=== PATIENT | female | born 1960 | race Caucasian/White ===

== ENCOUNTER 2017-01-03 18:52 | Emergency (ER) | payer MEDICARE, MEDICAID ==
[2017-01-03 19:53] LABS: Hematocrit 42 % (35-47); Hemoglobin 13.7 g/dl (12.0-16.0); Mean Corpuscular HGB Conc 33 g/dl (31-36); Mean Corpuscular Hemoglobin 29 pg (27-31); Mean Corpuscular Volume 87 fL (80-97); Mean Platelet Volume 8 um3 (7.4-10.4); Red Blood Count 4.78 10^6/ul (4.0-5.4); Red Cell Distribution Width 14 % (10.5-15); White Blood Count 11.3 10^3/ul (3.5-10.8)
[2017-01-03 20:08] LABS: BUN/Creatinine Ratio 23.8 (8-20); Calcium 9.8 mg/dL (8.6-10.3); EGFR African American 124.8 (>60); EGFR Non-African American 97.1 (>60); Potassium 3.6 mmol/L (3.5-5.0)
[2017-01-03] MEDS ORDERED: Acetaminophen TAB* 325 MG PO ONE (20:17)
--- NOTE | 2017-01-03 20:18 | RAD ---
HISTORY: Trauma, head injury COMPARISONS: October 04, 2015 TECHNIQUE: Multiple contiguous axial CT scans were obtained of the head without intravenous contrast. FINDINGS: HEMORRHAGE/INFARCT: There is no hemorrhage or acute infarct. MASSES/SHIFT: There is no mass or shift. EXTRA-AXIAL SPACES: There are no extra-axial fluid collections. SULCI AND VENTRICLES: The sulci and ventricles are normal in size and position for the patient's stated age. CEREBRUM: There are no focal parenchymal abnormalities. BRAINSTEM: There are no focal parenchymal abnormalities. CEREBELLUM: There are no focal parenchymal abnormalities. VESSELS: The vessels are grossly normal. PARANASAL SINUSES: The paranasal sinuses are clear. ORBITS: The orbits are unremarkable. 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 There is soft tissue swelling of the left frontal skull. There is prominence of the adenoids, greater than expected for age. OTHER: None IMPRESSION: 1. NO ACUTE INTRACRANIAL PATHOLOGY. 2. SOFT TISSUE SWELLING OF THE LEFT SCALP. 3. AGAIN NOTED IS PROMINENCE OF THE ADENOIDS WHICH CAN BE ASSOCIATED WITH CERTAIN TYPES OF IMMUNE DEFICIENT STATES
--- NOTE | 2017-01-03 20:20 | RAD ---
HISTORY: Trauma, head injury COMPARISONS: Head CT dated January 03, 2017 TECHNIQUE: Multiple contiguous axial CT scans were obtained of the cervical spine without intravenous contrast, with coronal and sagittal multiplanar reformations. FINDINGS: BRAIN: The visualized brain is unremarkable CENTRAL CANAL: Evaluation of the central canal is limited on CT technique, however there is no obvious canalicular mass or epidural hemorrhage. ALIGNMENT: There is straightening with mild reversal of the normal cervical lordosis. VERTEBRAL BODIES: There is multilevel anterolateral marginal osteophyte formation. There is no displaced fracture. JOINTS: There is osteoarthritis of the atlantoaxial articulation. There is osteoarthritis of the uncovertebral and facet joints. MUSCULATURE: Unremarkable INTERVERTEBRAL DISCS: There is diffuse loss of intervertebral disc height. AXIAL IMAGES: On axial images, there is no osseous neural foraminal narrowing or central canal stenosis. SOFT TISSUES: Again noted is prominence of the adenoids. There is preservation of the prevertebral fat stripe. OTHER: None. IMPRESSION: DEGENERATIVE DISC DISEASE AND OSTEOARTHRITIS OF THE CERVICAL SPINE. NO ACUTE OSSEOUS INJURY TO THE CERVICAL SPINE.
--- NOTE | 2017-01-03 20:49 | RAD ---
HISTORY: Trauma, status post fall COMPARISONS: None VIEWS: 2: Frontal dual-energy and lateral views of the chest. FINDINGS: CARDIOMEDIASTINAL SILHOUETTE: The cardiac silhouette is enlarged. The cardiomediastinal silhouette is otherwise normal. FARIDEH: The farideh are normal. PLEURA: The costophrenic angles are sharp. No pleural abnormalities are noted. LUNG PARENCHYMA: There is mild diffuse reticular pattern. ABDOMEN: The upper abdomen is clear. There is no subphrenic gas. BONES AND SOFT TISSUES: No bone or soft tissue abnormalities are noted. OTHER: None. IMPRESSION: CARDIOMEGALY WITH MILD INTERSTITIAL EDEMA
[2017-01-03] MEDS ORDERED: Lidocaine/Epineph/Tetraca SOL* (LET solution) 4 ML BTL ONE (22:05)
[2017-01-03 23:09] VITALS: BP 123/67
--- NOTE | 2017-01-03 23:31 | ED ---
Alonzo Atwood Adam, scribed for Juarez Medrano MD on 01/03/17 at 1915 . Head Injury - HPI Summary HPI Summary: Pt is a 56 year old female presenting with a head injury s/p fall. She has a developmental delay and her sisters assisted with providing the Hx. At approximately 18:20 tonight, the pt was putting on her shoes when she states that she "passed out" and struck the back of her head on a table. The fall was unwitnessed and the pt is unsure if she fell due to loss of balance or syncope. She currently presents with a laceration on the back of her head and c/o a [place] in that area. PMHx includes HTN, A Fib, and angina. She is a former smoker. - History Of Current Complaint Chief Complaint: EDHeadInjury Stated Complaint: FALL/HEAD LAC Time Seen by Provider: 01/03/17 19:08 Hx Obtained From: Patient, Family/Web Marketing Coordinator Mechanism Of Injury: Fall From A Standing Position Onset/Duration: Started Minutes Ago, Traumatic, Still Present Onset of Pain: Immediate Severity Currently: Moderate Severity Initially: Moderate Pain Intensity: 5 Pain Scale Used: 0-10 Numeric Location of Head Injury: Occipital Aggravating Factor(s): Other: - Nothing Alleviating Factor(s): Other: - Nothing - Allergies/Home Medications Allergies/Adverse Reactions: Allergies Allergy/AdvReac Type Severity Reaction Status Date / Time No Known Allergies Allergy Verified 09/29/14 13:28 PMH/Surg Hx/FS Hx/Imm Hx Endocrine/Hematology History: Denies: Hx Anticoagulant Therapy, Hx Blood Disorders, Hx Blood Transfusions, Hx Bone Marrow Disease, Hx Diabetes, Hx Systemic Lupus Erythematosus, Hx Sickle Cell Disease, Hx Thyroid Disease, Hx Anemia, Hx Unexplained Bleeding, Other Endocrine/Hematological Disorders Cardiovascular History: Reports: Hx Angina, Hx Hypertension - ON DAILY MEDS Denies: Hx Aneurysm, Hx Angioplasty, Hx Auto Implanted Cardiovert Defib, Hx Cardiac Arrest, Hx Cardiomegaly, Hx Congenital Heart Disease, Hx Congestive Heart Failure, Hx Coronary Artery Disease, Hx Deep Vein Thrombosis, Hx Embolism , Hx Hypercholesterolemia, Hx Hypotension, Hx Pacemaker/ICD, Hx Peripheral Vascular Disease, Hx Rheumatic Fever, Hx Syncope, Hx Valvular Heart Disease, Other Cardiovascular Problems/Disorders Respiratory History: Denies: Hx Asthma, Hx Chronic Bronchitis, Hx Chronic Obstructive Pulmonary Disease (COPD), Hx Cystic Fibrosis, Hx Lung Cancer, Hx Pleural Effusion, Hx Pneumonia, Hx Pulmonary Edema, Hx Pulmonary Embolism, Hx Seasonal Allergies, Hx Sleep Apnea, Other Respiratory Problems/Disorders GI History: Denies: Hx Cirrhosis, Hx Crohn's Disease, Hx Diverticulosis, Hx Gall Bladder Disease, Hx Gastroesophageal Reflux Disease, Hx Gastrointestinal Bleed, Hx Hiatal Hernia, Hx Irritable Bowel, Hx Jaundice, Hx Obstructive Bowel, Hx Ileostomy, Hx Pyloric Stenosis, Hx Ulcer, Other GI Disorders History: Denies: Hx Renal Disease Musculoskeletal History: Denies: Hx Arthritis, Hx Back Problems, Hx Bursitis, Hx Congenital Bone Abnormalities, Hx Fibromyalgia, Hx Gout, Hx Orthopedic Injury, Hx Osteoporosis, Hx Scoliosis, Hx Tendonitis, Other Musculoskeletal History Sensory History: Denies: Hx Cataracts, Hx Contacts or Glasses, Hx Eye Injury, Hx Eye Prosthesis, Hx Glaucoma, Hx Legally Blind, Hx Macular Degeneration, Hx Vision Problem, Hx Deafness, Hx Hearing Aid, Hx Hearing Problem, Other Sensory Impairments Opthamlomology History: Denies: Hx Cataracts, Hx Contacts or Glasses, Hx Eye Injury, Hx Eye Prosthesis, Hx Glaucoma, Hx Legally Blind, Hx Macular Degeneration, Hx Vision Problem, Other Sensory Impairments Neurological History: Reports: Hx Developmental Delay Denies: Hx Dementia, Hx Headaches, Hx Migraine, Hx Nerve Disease, Hx Seizures , Hx Spinal Cord Injury, Hx Transient Ischemic Attacks (TIA), Other Neuro Impairments/Disorders Psychiatric History: Reports: Hx [facility] Mental Health Tx Denies: Hx Anxiety, Hx Attention Deficit Hyperactivity Disorder, Hx Eating Disorder, Hx Depression, Hx Panic Disorder, Hx Post Traumatic Stress Disorder, Hx Inpatient Treatment, Hx Schizophrenia, Hx Bipolar Disorder, Hx Suicide Attempt, Hx of Violent Episodes Against Others, Hx Substance Abuse, Other Psychiatric Issues/Disorders - Surgical History Surgery Procedure, Year, and Place: 1970s HYSTERECTOMY [facility]. 12/23/13 RIGHT BREAST [facility] Hx Anesthesia Reactions: No Infectious Disease History: No Infectious Disease History: Denies: Hx Clostridium Difficile, Hx Hepatitis, Hx Human Immunodeficiency Virus (HIV), Hx of Known/Suspected MRSA, Hx Shingles, Hx Tuberculosis, Hx Known/ Suspected VRE, Hx Known/Suspected VRSA, History Other Infectious Disease, Traveled Outside the [place] in Last 30 Days - Family History Known Family History: Positive: Other - Breast CA, anesthesia rxn - Social History Occupation: Disabled Lives: With Family Alcohol Use: None Hx Substance Use: No Substance Use Type: Reports: None Hx Tobacco Use: Yes Smoking Status (MU): Former Smoker Type: Cigarettes Amount Used/How Often: 15 years Have You Smoked in the Last Year: No Review of Systems Negative: Arthralgia, Myalgia Positive: Other - Laceration on back of head Positive: Headache All Other Systems Reviewed And Are Negative: Yes Physical Exam Triage Information Reviewed: Yes Vital Signs On Initial Exam: Initial Vitals Temp Pulse Resp BP Pulse Ox 98.1 F 89 20 139/73 90 01/03/17 19:06 01/03/17 19:06 01/03/17 19:06 01/03/17 19:06 01/03/17 19:06 Vital Signs Reviewed: Yes Appearance: Positive: Well-Appearing, No Pain Distress Skin: Positive: Other - Laceration (See below under "Head/Face") Head/Face: Positive: Other - 1 inch laceration on midline occiput with edema around it. No crepitus. Respiratory/Lung Sounds: Positive: Clear to Auscultation, Breath Sounds Present Cardiovascular: Positive: RRR Abdomen Description: Positive: Soft - With ventral hernia, reducible Musculoskeletal: Positive: Strength/ROM Intact Neurological: Positive: Sensory/Motor Intact Psychiatric: Positive: Affect/Mood Appropriate Procedures - Laceration/Wound Repair 1 Location: head Description: Linear Anesthesia: Lido Length, Depth and Shape: 1.5 cm Betadine Prep?: No Laceration/Wound Explored: clean Closure: [place] #__ - 3 Debridement: minimal Layer Closure?: No Sterile Dressing Applied?: No Diagnostics - Vital Signs Vital Signs Temp Pulse Resp BP Pulse Ox 01/03/17 19:06 98.1 F 89 20 139/73 90 - Laboratory Result Diagrams: 01/03/17 19:35 01/03/17 19:35 Lab Statement: Any lab studies that have been ordered have been reviewed, and results considered in the medical decision making process. - Radiology CXR Radiology Interpretation Completed By: Radiologist - IMPRESSION: CARDIOMEGALY WITH MILD INTERSTITIAL EDEMA. - CT CERVICAL SPINE CT CT Interpretation Completed By: Radiologist - IMPRESSION: DEGENERATIVE DISC DISEASE AND OSTEOARTHRITIS OF THE CERVICAL SPINE. NO ACUTE OSSEOUS INJURY TO THE CERVICAL SPINE. BRAIN CT Interpretation Completed By: Radiologist - IMPRESSION: 1. NO ACUTE INTRACRANIAL PATHOLOGY. 2. SOFT TISSUE SWELLING OF THE LEFT SCALP. 3. AGAIN NOTED IS PROMINENCE OF THE ADENOIDS WHICH CAN BE ASSOCIATED WITH CERTAIN TYPES OF IMMUNE DEFICIENT STATES - EKG 20:47 Cardiac Rate: NL - 74 BPM EKG Rhythm: Sinus Rhythm EKG Comparison: No Significant Change - T wave inversions in I, II, aVL, aVF, and V1-V6 - no change from prior EKG's on 10/05/2015 and 08/21/2013. Head Injury Course/Dx - Diagnoses Differential Diagnosis/HQI/PQRI: Cerebral Contusion, Concussion Without LOC, Contusion, Hematoma, Intracranial Bleed, Skull Fracture, Other - Unclear initial cause for the fall; however, family (both sisters) believe her to be acting normally now and is not anticoagulated. They would like a limited evaluation, but understand the need for CT head and neck imaging. She has a safe home environment and would like to be discharged once evaluated. Provider Diagnoses: Laceration of scalp without complication Discharge - Discharge Plan Condition: Stable Disposition: HOME Patient Education Materials: Laceration (ED) Referrals: Dada Becerra MD [Primary Care Provider] - If Needed Additional Instructions: You need to see your Primary Care Provider or return to the Emergency Department in 10 days to have the melanie removed. The documentation as recorded by the Alonzo gentile Adam accurately reflects the service I personally performed and the decisions made by me, Juarez Medrano MD.
== END 2017-01-03 23:08 | disposition home or self-care (01) ==
LOC: ED 18:52
DX: S01.01XA Laceration without foreign body of scalp, initial encounter (principal); M50.30 Other cervical disc degeneration, unspecified cervical region; Z87.891 Personal history of nicotine dependence; W19.XXXA Unspecified fall, initial encounter; Y93.9 Activity, unspecified; Y92.9 Unspecified place or not applicable; Y99.9 Unspecified external cause status
CPT/HCPCS: 36415; 70450; 71020; 72125; 80048; 85027; 93005; 99283; A9270-GY

== ENCOUNTER 2017-01-10 14:41 | Inpatient (IN) | payer MEDICARE, MEDICAID ==
[2017-01-10] MEDS ORDERED: NS 0.9% 1000 ML* 1,000 ML IV ONE (14:57)
[2017-01-10] MEDS ORDERED: Adenosine* 3 MG/ML VIAL IV PUSH ONE ×2 (14:57)
--- NOTE | 2017-01-10 15:17 | ED ---
Palpitations / Dysrhythmia - HPI Summary HPI Summary: Patient presents for evaluation of tachyarrhythmia and altered mental status from the PCP office. EMS called because patient suddenly unresponsive with non palpable pulse prior to arrival. According to sisters, patient complaining of headache and nausea since the day after her last ED visit for head injury requiring melanie. Went to PCP office for staple removal and recheck, when became suddenly unresponsive. NO allev factors attempted in the PCP office. EMS unable to obtain IV access, but did have 12 lead EKG with SVT at [address] with inferior and lateral ST depressions. History limited by patient condition. - History of Current Complaint Chief Complaint: EDDysrhythmPalp Time Seen by Provider: 01/10/17 14:56 Hx Obtained From: Patient, Family/Bar Porter - Sisters, EMS Onset/Duration: Gradual Onset, Lasting Days Severity Initially: Severe Severity Currently: Moderate - Allergy/Home Medications Allergies/Adverse Reactions: Allergies Allergy/AdvReac Type Severity Reaction Status Date / Time No Known Allergies Allergy Verified 09/29/14 13:28 Home Medications: Home Medications FLUoxetine CAP* [PROzac CAP*] 20 mg PO DAILY 01/10/17 [History Confirmed ] Lactase [Lactaid] 3,000 unit PO TID 01/10/17 [History Confirmed 01/10/17] Metoprolol Tartrate TAB* [Lopressor TAB*] 25 mg PO BID 01/10/17 [History Confirmed 01/10/17] Pravastatin (NF) [Pravachol (NF)] 40 mg PO DAILY 01/10/17 [History Confirmed ] Rivaroxaban TAB(*) [Xarelto 20 mg] 20 mg PO DAILY 01/10/17 [History Confirmed ] PMH/Surg Hx/FS Hx/Imm Hx Endocrine/Hematology History: Denies: Hx Anticoagulant Therapy, Hx Blood Disorders, Hx Blood Transfusions, Hx Bone Marrow Disease, Hx Diabetes, Hx Systemic Lupus Erythematosus, Hx Sickle Cell Disease, Hx Thyroid Disease, Hx Anemia, Hx Unexplained Bleeding, Other Endocrine/Hematological Disorders Cardiovascular History: Reports: Hx Angina, Hx Hypertension - ON DAILY MEDS Denies: Hx Aneurysm, Hx Angioplasty, Hx Auto Implanted Cardiovert Defib, Hx Cardiac Arrest, Hx Cardiomegaly, Hx Congenital Heart Disease, Hx Congestive Heart Failure, Hx Coronary Artery Disease, Hx Deep Vein Thrombosis, Hx Embolism , Hx Hypercholesterolemia, Hx Hypotension, Hx Pacemaker/ICD, Hx Peripheral Vascular Disease, Hx Rheumatic Fever, Hx Syncope, Hx Valvular Heart Disease, Other Cardiovascular Problems/Disorders Respiratory History: Denies: Hx Asthma, Hx Chronic Bronchitis, Hx Chronic Obstructive Pulmonary Disease (COPD), Hx Cystic Fibrosis, Hx Lung Cancer, Hx Pleural Effusion, Hx Pneumonia, Hx Pulmonary Edema, Hx Pulmonary Embolism, Hx Seasonal Allergies, Hx Sleep Apnea, Other Respiratory Problems/Disorders GI History: Denies: Hx Cirrhosis, Hx Crohn's Disease, Hx Diverticulosis, Hx Gall Bladder Disease, Hx Gastroesophageal Reflux Disease, Hx Gastrointestinal Bleed, Hx Hiatal Hernia, Hx Irritable Bowel, Hx Jaundice, Hx Obstructive Bowel, Hx Ileostomy, Hx Pyloric Stenosis, Hx Ulcer, Other GI Disorders History: Denies: Hx Renal Disease Musculoskeletal History: Denies: Hx Arthritis, Hx Back Problems, Hx Bursitis, Hx Congenital Bone Abnormalities, Hx Fibromyalgia, Hx Gout, Hx Orthopedic Injury, Hx Osteoporosis, Hx Scoliosis, Hx Tendonitis, Other Musculoskeletal History Sensory History: Denies: Hx Cataracts, Hx Contacts or Glasses, Hx Eye Injury, Hx Eye Prosthesis, Hx Glaucoma, Hx Legally Blind, Hx Macular Degeneration, Hx Vision Problem, Hx Deafness, Hx Hearing Aid, Hx Hearing Problem, Other Sensory Impairments Opthamlomology History: Denies: Hx Cataracts, Hx Contacts or Glasses, Hx Eye Injury, Hx Eye Prosthesis, Hx Glaucoma, Hx Legally Blind, Hx Macular Degeneration, Hx Vision Problem, Other Sensory Impairments Neurological History: Reports: Hx Developmental Delay Denies: Hx Dementia, Hx Headaches, Hx Migraine, Hx Nerve Disease, Hx Seizures , Hx Spinal Cord Injury, Hx Transient Ischemic Attacks (TIA), Other Neuro Impairments/Disorders Psychiatric History: Reports: Hx Community Mental Health Tx Denies: Hx Anxiety, Hx Attention Deficit Hyperactivity Disorder, Hx Eating Disorder, Hx Depression, Hx Panic Disorder, Hx Post Traumatic Stress Disorder, Hx Inpatient Treatment, Hx Schizophrenia, Hx Bipolar Disorder, Hx Suicide Attempt, Hx of Violent Episodes Against Others, Hx Substance Abuse, Other Psychiatric Issues/Disorders - Surgical History Surgery Procedure, Year, and Place: 1970s [facility]CTOMY [facility]. 12/23/13 RIGHT BREAST [facility] Hx Anesthesia Reactions: No Infectious Disease History: No Infectious Disease History: Denies: Hx Clostridium Difficile, Hx Hepatitis, Hx Human Immunodeficiency Virus (HIV), Hx of Known/Suspected MRSA, Hx Shingles, Hx Tuberculosis, Hx Known/ Suspected VRE, Hx Known/Suspected VRSA, History Other Infectious Disease, Traveled Outside the [place] in Last 30 Days - Family History Known Family History: Positive: Other - Breast CA, anesthesia rxn - Social History Alcohol Use: None Hx Substance Use: No Substance Use Type: Reports: None Hx Tobacco Use: Yes Smoking Status (MU): Former Smoker Type: Cigarettes Amount Used/How Often: 15 years Have You Smoked in the Last Year: No Review of Systems - ROS Summary Review of Systems Summary: ROS limited by patient condition. All Other Systems Reviewed And Are Negative: Yes Physical Exam Triage Information Reviewed: Yes Vital Signs On Initial Exam: Initial Vitals Temp Pulse Resp BP Pulse Ox 98.1 F 208 20 98/62 91 01/10/17 14:45 01/10/17 14:45 01/10/17 14:45 01/10/17 14:45 01/10/17 14:45 Vital Signs Reviewed: Yes Appearance: Positive: No Pain Distress, Ill-Appearing, Obese Skin: Positive: Other - Moist skin and 2 to 3 second cap refill. Negative: Skin Color Reflects Adequate Perfusion, Dry Head/Face: Positive: Normal Head/Face Inspection Eyes: Positive: Normal, Conjunctiva Clear ENT: Positive: Normal ENT inspection, Pharynx normal Neck: Positive: Supple Respiratory/Lung Sounds: Positive: Clear to Auscultation, Breath Sounds Present Cardiovascular: Positive: Pulses are Symmetrical in both Upper and Lower Extremities, Tachycardia. Negative: Leg Edema Left, Leg Edema Right Abdomen Description: Positive: No Organomegaly, Soft, Other: - TTP in the R abdomen Musculoskeletal: Positive: Normal, Strength/ROM Intact Neurological: Positive: Normal, Sensory/Motor Intact, Alert, Oriented to Person Place, Time, CN Intact II-III. Negative: Unable to Assess Gait - Ally Coma Scale Coma Scale Total: 15 Diagnostics - Vital Signs Vital Signs Temp Pulse Resp BP Pulse Ox 01/10/17 14:45 98.1 F 208 20 98/62 91 - Laboratory Result Diagrams: 01/10/17 14:45 01/10/17 14:45 Lab Statement: Any lab studies that have been ordered have been reviewed, and results considered in the medical decision making process. - EKG No standard instances Cardiac Rate: Other Rate - SVT at 206 EKG Rhythm: SVT ST Segment: Non-Specific - inferolateral ST depression Ectopy: None - 14:31 p initial EKG performed 14:[address] tachy[address] with [address] depression in inferolateral leads HR 108 after 6mg and 12 mg of IV adenosine. Unchanged from EKG on 01/03/2017. Course/Dx - Diagnoses Differential Diagnosis/HQI/PQRI: Positive: Paroxymal SVT Provider Diagnoses: Cholelithiasis, Renal cyst, SVT (supraventricular tachycardia) - Critical Care Time Critical Care Time: 30-74 min Discharge - Discharge Plan Condition: Stable Disposition: ADMITTED TO [facility]
[2017-01-10 15:19] LABS: Hematocrit 48 % (35-47); Hemoglobin 15.5 g/dl (12.0-16.0); Mean Corpuscular HGB Conc 32 g/dl (31-36); Mean Corpuscular Hemoglobin 28 pg (27-31); Mean Corpuscular Volume 87 fL (80-97); Mean Platelet Volume 8 um3 (7.4-10.4); Red Blood Count 5.52 10^6/ul (4.0-5.4); Red Cell Distribution Width 14 % (10.5-15); White Blood Count 19.4 10^3/ul (3.5-10.8)
[2017-01-10 15:33] LABS: Troponin I 0.03 ng/mL (<0.04)
[2017-01-10 15:42] LABS: Albumin 4.1 g/dL (3.2-5.2); BUN/Creatinine Ratio 23.7 (8-20); Calcium 10.3 mg/dL (8.6-10.3); EGFR African American 79.6 (>60); EGFR Non-African American 61.9 (>60); Potassium 3.7 mmol/L (3.5-5.0); Total Protein 8.1 g/dL (6.4-8.9)
[2017-01-10] MEDS ORDERED: Iohexol 350* (CONTRAST) 500 ML MDV IV ONE (16:51)
--- NOTE | 2017-01-10 17:50 | RAD ---
INDICATION: Altered mental status. Dizzy. COMPARISON: CT brain January 03, 2017 TECHNIQUE: Noncontrast axial source images were acquired from the skull base to the vertex. FINDINGS: Ventricles/sulci: The ventricles and cisterns are normal in size and configuration for age. Brain parenchyma: There is no focal parenchymal finding, evidence of intracranial mass, or intracranial mass effect. Intracranial hemorrhage:None. Extra-axial spaces: There are no abnormal extra axial fluid collections or evidence of extra-axial mass. Calvarium: There is no calvarial fracture or other calvarial abnormality. Scalp: There is no evidence of scalp or extracalvarial soft tissue abnormality. Paranasal sinuses/mastoid: The paranasal sinuses and mastoid air cells are clear. Other: None. IMPRESSION: NEGATIVE EXAMINATION UNCHANGED FROM JANUARY 03, 2017
--- NOTE | 2017-01-10 17:59 | RAD ---
INDICATION: Altered mental status. Evaluate for pathology. COMPARISON: CT chest May 24, 2006 TECHNIQUE: Axial source images were obtained from the thoracic inlet to the symphysis pubis following administration of oral and intravenous contrast. 100 mL Omnipaque [address] angiographic technique was utilized in imaging the chest. Coronal and sagittal reconstructed images were acquired. Examination is limited due to significant degree due to beam hardening artifact related to patient's size. The patient was touching the side of the gantry. CHEST FINDINGS: Neck/thyroid: The visualized neck to include the thyroid appear normal. Chest wall: There are no acute abnormalities of the bony thorax or chest wall. There is no supraclavicular, infraclavicular, or axillary lymphadenopathy. Lungs : There are no new pulmonary parenchymal masses or infiltrates. There is a stable 6 mm right middle lobe nodule. The pulmonary interstitium appears normal. There are no endobronchial lesions. Cardiomediastinal structures: The heart is enlarged. There is no pericardial effusion. There is no evidence of aortic aneurysm or dissection. The pulmonary vessels appear normal. There is no CT evidence of acute pulmonary embolic disease. There is no mediastinal or hilar adenopathy. The esophagus appears normal. Pleura : There are no pleural-based masses or effusions. ABDOMINAL/PELVIC FINDINGS: Liver: The liver is enlarged with findings of hepatic steatosis. There are no masses. There is no ductal dilatation. Gallbladder: There are multiple calcified gallstones.. Spleen: The spleen is normal in size. There are no masses. Pancreas: There is a 1 cm cystic lesion in the body of the pancreas versus pancreatic duct diverticulum. Suggest follow-up CT imaging in 6 months. Adrenal glands: There is no evidence of adrenal mass. Kidneys: The kidneys are normal in size and position. There are prompt nephrograms and there is prompt excretion bilaterally. There is a 8.5 cm upper pole right renal cyst. There is no evidence of nephrolithiasis. Adenopathy: There is no evidence of adenopathy by size criteria. Fluid collections: There are no free or localized fluid collections. Vessels:The aorta and IVC appear normal GI tract: There are no acute CT bowel findings. There is no obstruction. The stomach and small bowel appear normal. The lower GI tract is normal. The cecum, ileocecal valve, and terminal ileum appear normal. Pelvic organs: There is hysterectomy. There is a thin-walled, low density left adnexal mass measuring 7.0 x 5.6 cm. The Hounsfield unit measurements are negative. This very low value that this may resent a lymphocele. An ovarian cyst is considered less likely. A GI duplication cyst is also considered less likely but is a consideration. Bladder: There are no bladder masses. Abdominal and pelvic soft tissues: The extraperitoneal abdominal and pelvic soft tissues appear normal.. Osseous structures: There are no acute osseous findings. IMPRESSION: 1. Limited examination due to patient size. 2. No CT evidence of acute pulmonary embolic disease 3. Cholelithiasis 4. Low index of suspicion cystic entity within the pancreas as described. Consider follow-up imaging with pancreatic protocol in 3-6 months. 5. 8.5 cm right renal cyst 6. Hysterectomy 7. Low index of suspicion, 7.0 cm cystic entity left hemipelvis, perhaps a lymphocele.
[2017-01-10 18:44] LABS: Urine Bacteria 1+ (Absent); Urine Bilirubin Negative (Negative); Urine Glucose 1+(50 mg/dL) (Negative); Urine Nitrite Positive (Negative)
[2017-01-10 18:48] LABS: Magnesium 2.1 mg/dL (1.9-2.7)
[2017-01-10] MEDS ORDERED: NS 0.9% 1000 ML* 1,000 ML IV SCH (19:30)
--- NOTE | 2017-01-10 20:29 | PN ---
Hospitalist Progress Note Received call from nurse that repeat troponin is 0.17. Suspect this is related to demand ischemia, from SVT. Will hold on starting a heparin gtt at this time and recheck troponin again in 3 hours.
[2017-01-10] MEDS: cefTRIAXone VIAL(*) 1,000 MG in NS 0.9% 50 ML* 50 ML IVPB SCH (21:52)
[2017-01-10] MEDS: Metoprolol Tartrate TAB* 25 MG PO SCH (22:10)
[2017-01-10] MEDS: Heparin VIAL(*) 5000 UNITS/ML VIAL (FIVE THOUSAND) SUBCUT SCH (22:11)
--- NOTE | 2017-01-10 22:35 | RAD ---
INDICATION: Cholelithiasis COMPARISON: CT chest/abdomen/pelvis same date TECHNIQUE: Longitudinal and transverse scans of the right upper quadrant were obtained. Doppler interrogation of the hepatic and portal venous system was performed. FINDINGS: Liver: There is hepatic steatosis. There are no masses . The liver measures 17.1 cm in cephalocaudal dimension. Vessels: There is normal hepatic and portal venous flow. Bile ducts: There is no evidence of intrahepatic or extrahepatic ductal dilatation. The common duct measures 0.4 cm. Gallbladder: There is cholelithiasis. There is no thickening of the gallbladder wall or pericholecystic fluid. Pancreas: The visualized pancreas appears normal Right kidney: The right kidney is normal in size and echogenicity. There are no calculi. There is an upper pole right renal cyst measuring 7.8 cm in maximum dimension. There is no evidence of hydronephrosis. The right kidney measures 13.1 x 6.1 x 5.7 cm. IVC and aorta: The aorta and superior vena cava appear normal. Fluid: There is no ascites. Other: None. IMPRESSION: CHOLELITHIASIS. RIGHT RENAL CYST.
[2017-01-11] MEDS: Morphine INJ* 2 MG/ML 1 ML CARPUJECT IV PRN ×4 (01:30→22:10)
--- NOTE | 2017-01-11 04:16 | HP ---
ADDENDUM: * HISTORY AND PHYSICAL: Ailyn Peng is a 56-year-old female with history of intellectual delay who had also has history of SVT in 2015 and presented today after a syncopal episode at her doctor's office. She was noted to be in SVT at that point. She was chemically cardioverted after adenosine administered in the emergency room. The patient also appears to have a UTI. The patient is going to be placed on observation. Please also see further details of patient' s recommendation and plan dictated in the H and P by Donna Luis NP with which I agree. [id number]/CPS #: [id number] MTDD
--- NOTE | 2017-01-11 04:16 | HP ---
ATTENDING PHYSICIAN ADDENDUM NOW INCLUDED ON THIS REPORT HISTORY AND PHYSICAL: DATE OF ADMISSION: 01/10/17 AGE: 56. PRIMARY CARE PROVIDER: Dada Becerra MD. ATTENDING PHYSICIAN: Lily Peterson MD *(dictated by Donna Bundy NP). CHIEF COMPLAINT: Passed out. HISTORY OF PRESENT ILLNESS: Ms. Peng is a 56-year-old female with past medical history significant for angina, hypertension, developmental delay, nonischemic cardiomyopathy, hyperlipidemia, morbid obesity, who presented to the emergency room after a syncopal episode at her primary care provider's office and was found to be in SVT. It is to note that last week the patient was seen in the emergency room on 01/03/17 after a syncopal episode. Per the patient's sisters, the patient was in the house alone and when her niece went back in the house, she found her on the floor. The patient was unsure if she had lost her balance or had passed out. At that time the patient was trying to put her shoes on. The patient struck her head on a dining room table resulting in a laceration in the back of her head. The patient presented to the emergency room with complaints of a headache and had laceration. The patient was seen in the emergency room and was found to have a 1- inch laceration to her midline occiput with some edema around it. There was no crepitus. The patient had a CT scan of her brain and C-spine with no acute findings. There was soft tissue swelling of the left scalp noted. At that time, the patient had an EKG showing sinus rhythm with a rate of 74 and no significant changes in previous EKGs. The patient was discharged home with instructions to follow up with her primary care provider. Today, the patient was at her primary care provider's office for followup and to have her melanie removed, when she states walking in, she felt diaphoretic and warm, she took her coat off. According to the patient she did not feel as though she was going to pass out, but passed out. The patient's sister states that she grabbed her hand and said "oh no" prior to passing out. The patient denies any dizziness or lightheadedness. She complains of a headache since falling and hitting her head last week. She is really unable to describe this headache stating that it just hurts. The patient also reports chest discomfort. According to the patient's sister, she has intermittently complained of this for 20 years. The patient is really unable to describe it. When asked if sharp or pressure, she describes it as a pressure. The patient reports feeling palpitations earlier today when she initially was presented to the emergency room. The patient also reports feeling some nausea since hitting her head last week. She has recently had some diarrhea that according to her family has resolved. The patient denies any urinary symptoms, although her family reports that she has some incontinence , so she waits too long to get to the bathroom. The patient denies any dysuria. The patient reports some right lower quadrant pain developing yesterday. Due to the patient passing out in her doctor's office she was found to be tachycardic. EMS was called. When EMS arrived, the patient had an EKG showing an SVT with a heart rate of 209. The patient was brought to the emergency room where she had an EKG showing SVT with a rate of 206. The patient received 6 mg of IV adenosine and then received an additional 12 mg of IV adenosine and the patient's heart rate slowed down into sinus tach with a rate of 108. The patient had a head CT showing a negative exam, unchanged from 01/03/17. Due to the patient complaining of abdominal pain, she had a CTA of her chest, abdomen and pelvis while in the emergency room. This showed no evidence of acute pulmonary embolism, cholelithiasis, and a low index of suspicion cystic entity within the pancreas as described in the report. While on telemetry monitoring in the emergency room , the patient's heart rate had decreased to the 90s to 100s. Based of the patient's presentation with SVT, the hospitalists were asked to evaluate the patient for admission. PAST MEDICAL HISTORY: 1. Angina. 2. Hypertension. 3. Developmental delay. 4. Nonischemic cardiomyopathy. 5. Hyperlipidemia. 6. Morbid obesity. 7. Coronary artery abnormality, absent left anterior descending artery. 8. 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 9. Paroxysmal SVT. PAST SURGICAL HISTORY: 1. Status post evacuation of right breast hematoma and reexcision of anterior right breast cavity from margin in 2013. 2. Status post terminal duct excision of the right breast in 2013. 3. Status post hysterectomy in the . 4. Status post cardiac catheterization in 2007. HOME MEDICATIONS: Include: 1. Lactase 3000 units oral 3 times daily. 2. Prozac 20 mg oral daily. 3. Metoprolol tartrate 25 mg oral twice daily. 4. Lisinopril 5 mg oral daily. ALLERGIES: No known drug allergies. FAMILY HISTORY: The patient's father had a history of ME, diabetes mellitus, pancreatic cancer and cerebrovascular accident. The patient's mother and brother also has a history of cerebrovascular accidents. SOCIAL HISTORY: The patient is a former smoker. She quit smoking approximately 20 years ago. The patient denies alcohol or recreational drug use. The patient is disabled and lives with the significant other. At this time she has other family members staying with her as her significant other is currently in a residential receiving rehabilitation. The patient's sisters Bro Armenta, Jessica Huertas and Tish will be her surrogate decision makers in the event that she is unable to make decisions for herself. REVIEW OF SYSTEMS: I performed a 14-point review of systems. All the pertinent positives and negatives are mentioned in the history of present illness. The remaining review of systems are negative. PHYSICAL EXAMINATION GENERAL APPEARANCE: The patient is alert, pleasant, appears to be in no acute distress. VITAL SIGNS: Temperature 98.1, heart rate 90, respiratory rate 17, O2 sat 95% on 4 L via nasal cannula, blood pressure 125/78. HEENT: Normocephalic, atraumatic. The patient does have some mild edema (soft tissue swelling, possibly a small hematoma) to her occipital area from her previous fall with slight tenderness. The pupils are equal and reactive to light. Extraocular movements are intact. RESPIRATORY: There is no accessory muscle use. Lungs are clear to auscultation bilateral. CARDIOVASCULAR: Regular rate and rhythm, tachycardic. There are no murmurs, rubs or gallops heard. ABDOMEN: Soft, large, and tender in the right upper quadrant. There are bowel sounds present x4. EXTREMITIES: There is no lower extremity edema. DP and PT pulses are 2+ and symmetric. MUSCULOSKELETAL: There is no clubbing or cyanosis noted. NEUROLOGIC: The patient is alert and oriented x3. Cranial nerves II through XII are grossly intact. SKIN: The patient has a 1-inch healing laceration to her occipital area with 3 melanie intact. DIAGNOSTIC STUDIES/LABORATORY DATA: Sodium 139, potassium 3.7, chloride 102, CO2 of 25, BUN 22, creatinine 0.93, glucose 251. White blood cell count 19.4, hemoglobin 15.5, hematocrit 48, platelet count 320. Lactic acid is 3.1, troponin 0.03. EKG at 1431 shows an SVT with a rate of 206. Repeat EKG at 1442 shows a sinus tachycardia with some ST depression in inferolateral. Heart rate is 108. EKG is unchanged from previous EKG on 01/03/17. 1. Brain CT from today. Radiologist's impression: Negative examination, unchanged from 01/03/17. 2. Abdomen/pelvis chest CTA from today. Radiologist's impression: Limited examination due to the patient's size. No CT evidence of acute pulmonary embolic disease. Cholelithiasis. Low index of suspicion cystic entity within the pancreas as described. Consider followup imaging with pancreatic protocol in 3 to 6 months. A 8.5 cm right renal cyst. A hysterectomy. Low index of suspicion a 7.0 cm cystic entity left hemipelvis, perhaps a lymphocele. IMPRESSION: Ms. Peng is a 56-year-old female with past medical history significant for nonischemic cardiomyopathy, developmental delay, hypertension, angina and supraventricular tachycardia, morbid obesity, and hyperlipidemia, who presented to the emergency room after a syncopal episode at her primary care provider's office and was found to be in supraventricular tachycardia. She will be admitted as an observation for supraventricular tachycardia and syncope. ASSESSMENT: 1. Supraventricular tachycardia. The patient converted into sinus rhythm after adenosine appeared to be monitored on telemetry. We will get an echocardiogram in the morning. We will also trend her troponins. There was a slightly elevated troponin of 0.03. I suspect that this may just be demand ischemia. As far as the patient's electrolytes, they are within normal limits. If the patient continues to have tachycardia, I will consider a cardiology consult in the morning. 2. Syncope. I suspect this is cardiogenic. We will get an echocardiogram in the morning. The patient will have her troponins trended and will be monitored on telemetry. The patient appears to be a little on the dry side, we will give her a liter of fluid overnight. 3. Leukocytosis. The patient's UA is pending at this time. This could be stress induced, but the urine in the exam room appears to be cloudy. The patient also has blood cultures pending. We will recheck the patient's CBC in the morning and if she does in fact have a UA, we will start her on the appropriate antibiotics. 4. Nonischemic cardiomyopathy. The patient will be continued on metoprolol. 5. Hypertension. The patient will be continued on her home lisinopril and metoprolol. 6. Right sided abdominal pain. The CTA of her abdomen shows cholelithiasis. The patient has right upper quadrant tenderness. We will get an ultrasound to evaluate her gallbladder and consider getting a surgical consult in the morning if she continues to complain of pain and has any abnormalities on her ultrasound as this may represent symptomatic cholelithiasis. 6. Fluid, electrolytes and nutrition. The patient will be on a heart healthy diet. She will receive gentle IV fluids overnight. 7. Code status. Full code. 8. DVT prophylaxis. The patient is at high risk and on subcu heparin. 9. Disposition. Observation. TIME SPENT: The time for this admission was 60 minutes, and 35 minutes was spent face to face with the patient and sisters discussing medications, past medical history and the events leading up to her arrival today and performing a physical examination. The case has been reviewed with the attending, Dr. Peterson, who agrees with the plan of care. Reviewed by KEZIA RYDER 01/12/17 0913 ADDENDUM: HISTORY AND PHYSICAL: Ailyn Peng is a 56-year-old female with history of intellectual delay who had also has history of SVT in 2015 and presented today after a syncopal episode at her doctor's office. She was noted to be in SVT at that point. She was chemically cardioverted after adenosine administered in the emergency room. The patient also appears to have a UTI. The patient is going to be placed on observation. Please also see further details of patient' s recommendation and plan dictated in the H and P by Donna Munson NP with which I agree. LILY PETERSON MD CC: Dada Becerra MD* [id number] #: [id number] [place]-[id number]/CPS #: [id number] DRAGAN
[2017-01-11 05:08] LABS: Hematocrit 42 % (35-47); Hemoglobin 13.8 g/dl (12.0-16.0); Mean Corpuscular HGB Conc 33 g/dl (31-36); Mean Corpuscular Hemoglobin 29 pg (27-31); Mean Corpuscular Volume 87 fL (80-97); Mean Platelet Volume 8 um3 (7.4-10.4); Red Blood Count 4.79 10^6/ul (4.0-5.4); Red Cell Distribution Width 14 % (10.5-15); White Blood Count 12.2 10^3/ul (3.5-10.8)
[2017-01-11] MEDS: Heparin VIAL(*) 5000 UNITS/ML VIAL (FIVE THOUSAND) SUBCUT SCH ×3 (05:17→22:10)
[2017-01-11 05:26] LABS: BUN/Creatinine Ratio 32.7 (8-20); Calcium 9.3 mg/dL (8.6-10.3); EGFR African American 155.8 (>60); EGFR Non-African American 121.1 (>60); Potassium 3.1 mmol/L (3.5-5.0)
[2017-01-11 05:30] LABS: Troponin I 0.13 ng/mL (<0.04)
[2017-01-11] MEDS ORDERED: KCL 20 MEQ/100 ML IVPREMIX* 20 MEQ/100 ML BAG IV ONE (09:19)
[2017-01-11] MEDS ORDERED: Potassium Chlor TAB* 20 MEQ TAB.ER PO ONE (09:20)
[2017-01-11] MEDS: FLUoxetine CAP* 20 MG PO SCH (09:33)
[2017-01-11] MEDS: Metoprolol Tartrate TAB* 25 MG PO SCH (09:33)
[2017-01-11] MEDS: Lisinopril TAB* 5 MG PO SCH (09:33)
--- NOTE | 2017-01-11 10:29 | ECHO ---
Patient: PHOEBE WILKES [facility] Rec#: [id number] : 1960 Date: 01/11/2017 Age: 56y Height: 170.18 cm / 67.0 in Weight: 117.93 kg / 259.9 lbs Sex: F BSA: 2.26 Room#: 437 Admit Date#: 01/10/2017 Type: Inpatient Referring: Donna Downing NP Reading: Chad Mtz MD Physician Relations Representative: Jocelyn Lewis DHRUV Physician Relations Representative: Donna Young CC: Dada Becerra MD Transthoracic Echocardiogram Indication: Syncope, SVT BP: 127/76 HR: 73 Rhythm: NSR Findings History: Angina, HTN, HLD, nonischemic CM, PSVT, obesity, and former smoker. Technical Comments: The study is technically limited due to patient body habitus. The study is technically limited due to the patient's smoking history. Completed at 0855. Left Ventricle: The left ventricular chamber size is normal. Mild to moderate concentric left ventricular hypertrophy is observed. There is a focal wall motion abnormality present.The proximal inferior low posterolateral wall appears more hypokinetic than other areas. There is mildly decreased left ventricular systolic function. The estimated ejection fraction is 45-50%. There is an E to A reversal in the mitral valve flow pattern suggestive of diastolic dysfunction. Left Atrium: The left atrial chamber size is normal. Right Ventricle: The right ventricular cavity size is normal. The right ventricular global systolic function is mildly reduced. Right Atrium: The right atrium is slightly dilated. Aortic Valve: The aortic valve is trileaflet. The aortic valve leaflets are mildly thickened. Mitral Valve: The mitral valve leaflets are mildly thickened. There is no evidence of mitral regurgitation. There is no evidence of mitral stenosis. Tricuspid Valve: The tricuspid valve leaflets are normal. There is a physiologic tricuspid regurgitation. Unable to estimate the right ventricular systolic pressure. There is no tricuspid stenosis. Pulmonic Valve: The pulmonic valve appears normal. There is a trace pulmonic regurgitation. There is no pulmonic stenosis. Pericardium: There is no significant pericardial effusion. A pericardial fat pad is visualized. Aorta: There is mild dilatation of the ascending aorta. There is no dilatation of the aortic arch. There is no dilation of the aortic root. Pulmonary Artery: The main pulmonary artery appears normal. Venous: The venous system is not well visualized. Conclusions Mild to moderate concentric left ventricular hypertrophy is observed. There is a focal wall motion abnormality present.The proximal inferior low posterolateral wall appears more hypokinetic than other areas. There is mildly decreased left ventricular systolic function. The estimated ejection fraction is 40-45%. Visually estimated LVEF is closer to 45 %. There is a physiologic tricuspid regurgitation. There is a trace pulmonic regurgitation. Compared to report of study from 10/05/2015 the LV systolic function is currently better (was reported as LVEF of 30-35% on prior report). Measurements Name Value Normal Range RVIDd (AP) 2D 3.1 cm (0.9 - 2.6) RVDdMajor (2D) 2.7 cm (2.2 - 4.4) RAd ISD 4CH 6 cm (3.4 - 4.9) RA (A4C)W 4.3 cm (2.9 - 4.6) IVSd (2D) 1.3 cm (0.6 - 1) LVPWd (2D) 1.2 cm (0.6 - 1) LVIDd (2D) 5.3 cm (3.6 - 5.4) LVIDs (2D) 4.1 cm - LV FS (2D) 23 % (25 - 45) Aortic Annulus 2.2 cm (1.4 - 2.6) Ao root diameter (2D) 3.2 cm (2.1 - 3.5) Ascending Ao 3.7 cm (2.1 - 3.4) Aortic arch 2.6 cm (1.8 - 3.4) LA dimension (AP) 2D 3.7 cm (2.3 - 3.8) LAd ISD 4CH 5 cm (2.9 - 5.3) LA ISD 4CH W 5.2 cm (2.5 - 4.5) Name Value Normal Range LA ESV SP 4CH (A/L) 51 ml - LA ESV SP 2CH (A/L) 58 ml - LA ESV BP (A/L) 56 ml - LA ESV BP (A/L) index 25 ml/m2 - LA ESV SP 4CH (MOD) 46 ml - LA ESV SP 2CH (MOD) 55 ml - Name Value Normal Range MV E-wave Vmax 0.47 m/sec - MV deceleration time 173 msec - MV A-wave Vmax 0.74 m/sec - MV E:A ratio 0.6 ratio - LV septal e' Vmax 0.05 m/sec - LV lateral e' Vmax 0.05 m/sec - LV E:e' septal ratio 9.4 ratio - LV E:e' lateral ratio 9.4 ratio - Name Value Normal Range AV Vmax 1.58 m/sec - AV VTI 33.3 cm - AV peak gradient 9.96 mmHg - AV mean gradient 6.21 mmHg - LVOT Vmax 0.91 m/sec - LVOT VTI 16.3 cm - LVOT peak gradient 3.47 mmHg - LVOT mean gradient 1.59 mmHg - ISAIAS Vmax 0.9 m/sec - Name Value Normal Range PV Vmax 0.89 m/sec - PV peak gradient 3.19 mmHg -
[2017-01-11 11:26] LABS: Magnesium 2.1 mg/dL (1.9-2.7)
--- NOTE | 2017-01-11 11:34 | PN ---
Subjective Date of Service: 01/11/17 Interval History: Patient seen and examined at bedside. Pt continues to complain of right sided abdominal pain. Denies fever, chills, shortness of breath, chest discomfort, N/V /D, or urinary symptoms. Pt got up to a chair today, but wasn't able to stay in the chair d/t increased abdominal pain when sitting up. Pt's sister would like to have her melanie removed from her head today, they were placed on 01/03 and were suppose to be removed in 7-10 days. Tele: Sinus rhythm, rate 60-90's. Few PVCs noted and a 16 beat of V tach overnight. Family History: Unchanged from Admission Social History: Unchanged from Admission Past Medical History: Unchanged from Admission Objective Active Medications: Fluoxetine HCl (Prozac Cap*) 20 mg PO DAILY [facility] Heparin Sodium (Porcine) (Heparin Vial(*)) 5,000 units SUBCUT Q8HR BRIAN Ceftriaxone Sodium 1,000 mg/ (Sodium Chloride) 50 mls @ 200 mls/hr IVPB Q24H BRIAN Potassium Chloride (Potassium Chloride 20 Meq/100 Ml Ivpremix*) 20 meq in 100 mls @ 50 mls/hr IV ONCE ONE Stop: 01/11/17 11:18 Lisinopril (Prinivil Tab*) 5 mg PO DAILY [facility] Metoprolol Tartrate (Lopressor Tab*) 25 mg PO BID BRIAN Morphine Sulfate (Morphine Inj (Syringe)*) 2 mg IV Q4H PRN Reason: PAIN - MILD Vital Signs 01/10/17 01/10/17 01/11/17 20:45 23:37 00:00 Temperature 97.3 F 97.8 F Pulse Rate 92 72 Respiratory 16 16 Rate Blood Pressure 140/76 137/82 (mmHg) O2 Sat by Pulse 90 97 92 Oximetry 01/11/17 01/11/17 01/11/17 01:30 02:30 03:59 Temperature 98.0 F Pulse Rate 75 Respiratory 16 16 16 Rate Blood Pressure 127/76 (mmHg) O2 Sat by Pulse 91 Oximetry 01/11/17 01/11/17 01/11/17 07:29 08:00 08:45 Temperature 98.3 F Pulse Rate 76 Respiratory 16 16 16 Rate Blood Pressure 135/68 (mmHg) O2 Sat by Pulse 94 Oximetry 01/11/17 01/11/17 01/11/17 09:00 09:45 10:30 Temperature Pulse Rate 80 Respiratory 18 16 Rate Blood Pressure 136/72 (mmHg) O2 Sat by Pulse 94 Oximetry Oxygen Devices in Use Now: Nasal Cannula - 2L Appearance: NAD, laying in bed. Eyes: No Scleral Icterus, PERRLA Ears/Nose/Mouth/Throat: NL Teeth, Lips, Gums, Mucous Membranes Moist Neck: NL Appearance and Movements; NL JVP, Trachea Midline Respiratory: Symmetrical Chest Expansion and Respiratory Effort, Clear to Auscultation Cardiovascular: NL Sounds; No Murmurs; No JVD, RRR Abdominal: - - Bowel sounds present, abdomen soft, large, tender in the right upper quad Extremities: - - mild-moderate bilateral LE edema Skin: - - 3 melanie to posterior scalp, small area of edema near incision line. Neurological: Alert and Oriented x 3, NL Muscle Strength and Tone Lines/Tubes/Other Access: Clean, Dry and Intact Peripheral IV - site benign Nutrition: Taking PO's Result Diagrams: 01/11/17 04:39 01/11/17 04:39 Assess/Plan/Problems-Billing Assessment: Ms. Peng is a 56 yo female with PMH significant for paroxysmal SVT, angina, HTN, developmental delay, nonischemic cardiomyopathy, HLD, and morbid obesity who presented to the emergency room with SVT after a syncopal epsiode. She was also found to have a UTI and symptomatic cholelithiasis. - Patient Problems (1) SVT (supraventricular tachycardia) Code(s): I47.1 - SUPRAVENTRICULAR TACHYCARDIA SNOMED Code(s): 0139719 Comment: - Resolved after receiving 2 doses of adenosine in the ED - Now in Sinus rhythm on tele - Suspect this is related to infection (UTI) - Will change metoprolol to Toprol 50 BID - Will check TSH (2) Elevated troponin Code(s): R74.8 - ABNORMAL LEVELS OF OTHER SERUM ENZYMES SNOMED Code(s): 251734166 Comment: - Peaked at 0.21 - Denies chest pain - Ischemic changes on EKG, but similar to previous EKG from 01/03/17 and 09/2015 - Echo shows mild to moderate concentric LVH, a focal wall motion abnormality, the proximal inferior low posterolateral wall more hypokinetic than other areas. EF 40-45% - Cardiology consult pending (3) Cholelithiasis Comment: - Symptomatic - Seen on CTA and GB ultrasound. Will get a HIDA scan today - Surgery consult pending (4) Electrolyte abnormality Code(s): E87.8 - OTH DISORDERS OF ELECTROLYTE AND FLUID BALANCE, NEC SNOMED Code(s): 346021005 Comment: - Hypokalemia - will recieive replacement today and recheck labs in the AM - Will add a magnesium to todays labs (5) Syncope Code(s): R55 - SYNCOPE AND COLLAPSE SNOMED Code(s): 413292392 Comment: - Seems most likely due to combination of dehydration and rapid HR from arrythmia. - Had a 16 beat V tach overnight - Continue to monitor on tele (6) UTI (urinary tract infection) Comment: - UA appears to have a UTI - UCx pending - Will continue ceftriaxone for now, monitor for sensitivities. (7) Cardiomyopathy, nonischemic Code(s): I42.9 - CARDIOMYOPATHY, UNSPECIFIED SNOMED Code(s): 83705139 Comment: - Metoprolol as above. Continue Lisinopril - Currently not on a statin (8) HTN (hypertension) Code(s): I10 - ESSENTIAL (PRIMARY) HYPERTENSION SNOMED Code(s): 74104055 Comment: - Controlled, SBO 110-130's - Continue lisinopril. (9) DVT prophylaxis Code(s): RKR7564 - SNOMED Code(s): 107055172 Comment: - SQ heparin (10) Full code status Code(s): Z78.9 - OTHER SPECIFIED HEALTH STATUS SNOMED Code(s): 621889676 Status and Disposition: OBV to Inpatient. Pt presented to ED with SVT, found to have symptomatic cholelithiasis, elevated troponins, and UTI. Plan for discharge to home when medically stable.
[2017-01-11 13:59] LABS: TSH (Thyroid Stimulating Horm) 1.11 mcIU/mL (0.34-5.60)
--- NOTE | 2017-01-11 14:08 | RAD ---
INDICATION: Cholelithiasis COMPARISON: Gallbladder sonogram January 10, 2017 TECHNIQUE: Following the administration of 6.6 millicuries of technetium 99m mebrofenin, serial, static, anterior images of the abdomen were obtained at 5 minute increments for a period of one hour. FINDINGS: There is prompt uptake of radiopharmaceutical within the liver indicating normal hepatic function. There is prompt visualization of the gallbladder and small bowel indicating patency of the cystic and common ducts. IMPRESSION: NORMAL HEPATOBILIARY SCAN.
--- NOTE | 2017-01-11 14:54 | CONSULT ---
Subjective Date of Service: 01/11/17 Interval History: DATE OF ADMISSION: 01/10/17 PRIMARY CARE PROVIDER: Dada Becerra MD Corrugator: Dr. Trimble Service: hospitalist CC: Right upper quadrant pain, chest pain, syncope Reason for consult: SVT HISTORY OF PRESENT ILLNESS: Ms. Peng is a 56-year-old woman with past medical history significant for adult with developmental cognitive disability, NICM, SVT, episodes of chest pain ultimately found to be GI related, obesity. Patient limited historian, records taken from sisters present, chart and history available from patient. Had possible LOC episode 01/03/2017. She was found in NSR at that time. Had head laceration. Has had several days of RUQ pain. In PMD office Dr. Becerra today for follow up appointment had chest pain , possible palpitations dizziness and had LOC. Found with rapid SVT broke with adenosine 12 mg. K went from 3.7 to 3.1. Found with urosepsis and/or biliary sepsis being treated with antibiotics. Currently denies any lightheadedness, palpitations, dyspnea or syncope. PAST MEDICAL HISTORY: Hypertension. Developmental delay. Nonischemic cardiomyopathy. SVT NSVT Hyperlipidemia. Morbid obesity. PAST SURGICAL HISTORY: 1. Status post evacuation of right breast hematoma and reexcision of anterior right breast cavity from margin in 2013. 2. Status post terminal duct excision of the right breast in 2013. 3. Status post hysterectomy in the . 4. Status post cardiac catheterization in 2008 showing no significant CAD HOME MEDICATIONS: Include: 1. Lactase 3000 units oral 3 times daily. 2. Prozac 20 mg oral daily. 3. Metoprolol tartrate 25 mg oral twice daily. 4. Lisinopril 5 mg oral daily. ALLERGIES: No known drug allergies. FAMILY HISTORY: The patient's father had a history of [place], diabetes mellitus, pancreatic cancer and cerebrovascular accident. The patient's mother and brother also has a history of cerebrovascular accidents. SOCIAL HISTORY: The patient is a former smoker. She quit smoking approximately 20 years ago. The patient denies alcohol or recreational drug use. The patient is disabled. At this time she has other family members staying with her as her significant other is currently in a snf receiving rehabilitation. The patient's sisters Bro Armenta, Jessica Huertas and Tish will be her surrogate decision makers in the event that she is unable to make decisions for herself. Medications Active Medications: Fluoxetine HCl (Prozac Cap*) 20 mg PO DAILY [facility] Last Admin: 01/11/17 09:33 Dose: 20 mg Heparin Sodium (Porcine) (Heparin Vial(*)) 5,000 units SUBCUT Q8HR [facility] Last Admin: 01/11/17 05:17 Dose: 5,000 units Ceftriaxone Sodium 1,000 mg/ (Sodium Chloride) 50 mls @ 200 mls/hr IVPB Q24H [facility] Last Admin: 01/10/17 21:52 Dose: 200 mls/hr Lisinopril (Prinivil Tab*) 5 mg PO DAILY [facility] Last Admin: 01/11/17 09:33 Dose: 5 mg Metoprolol Succinate (Toprol Xl Tab*) 50 mg PO BID [facility] Morphine Sulfate (Morphine Inj (Syringe)*) 2 mg IV Q4H PRN PRN Reason: PAIN - MILD Last Admin: 01/11/17 08:45 Dose: 2 mg Home Medications: FLUoxetine CAP* [PROzac CAP*] 20 mg PO DAILY 08/10/15 [History Confirmed ] Lisinopril TAB* [Prinivil TAB*] 5 mg PO DAILY 08/10/15 [History Confirmed ] Lactase [Lactaid] 3,000 unit PO TID 01/10/17 [History Confirmed 01/10/17] Metoprolol Tartrate TAB* [Lopressor TAB*] 25 mg PO BID 01/10/17 [History Confirmed 01/10/17] Review of Systems - Measurements Intake and Output: Intake and Output Last 24 Hours 01/09/17 01/10/17 01/11/17 01/12/17 06:59 06:59 06:59 06:59 Intake Total 170 Balance 170 Intake: IV Fluids 85 NS (0.9%) 85 IVPB 85 potassium 20 meq 85 Oral 0 - Review of Systems Review of Systems Statement: Unable to obtain complete ROS due to baseline cognitive status. Objective Vital Signs: Temp Pulse Resp BP Pulse Ox 98.2 F 70 20 118/65 94 01/11/17 11:45 01/11/17 11:45 01/11/17 11:45 01/11/17 11:45 01/11/17 11:45 Oxygen Devices in Use Now: Nasal Cannula - 2L Appearance: pleasant, nad Ears/Nose/Mouth/Throat: Clear Oropharnyx, Mucous Membranes Moist Neck: NL Appearance and Movements; NL JVP Respiratory: Symmetrical Chest Expansion and Respiratory Effort, Clear to Auscultation Cardiovascular: NL Sounds; No Murmurs; No JVD, RRR, No Edema Abdominal: NL Sounds; No Tenderness; No Distention, - - obese Extremities: No Edema Skin: No Rash or Ulcers Neurological: - - awake and alert Laboratory Results: 01/11/17 04:39 01/11/17 04:39 Total Bilirubin 1.00 mg/dL (0.2-1.0) 01/10/17 14:45 AST 25 U/L (13-39) 01/10/17 14:45 ALT 28 U/L (7-52) 01/10/17 14:45 Alkaline Phosphatase 85 U/L (34-104) 01/10/17 14:45 Total Protein 8.1 g/dL (6.4-8.9) 01/10/17 14:45 Albumin 4.1 g/dL (3.2-5.2) 01/10/17 14:45 Globulin 4.0 g/dL (2-4) 01/10/17 14:45 Albumin/Globulin Ratio 1.0 (1-3) 01/10/17 14:45 TSH 1.11 mcIU/mL (0.34-5.60) 01/11/17 04:39 01/10/17 01/10/17 01/10/17 14:45 19:08 22:07 Troponin I 0.03 0.17 H* 0.21 H* 01/11/17 04:39 Troponin I 0.13 H* mg 2.1 Diagnostic Imaging: EKG 01/03/2017: NSR, IVCD, asymmetric ST TWI/ST depression diffuse suggestive of myocardial ischemia EKG 01/10/2017: Likely SVT with CRISTO in aVR and V1 with diffuse downsloping ST depression TTE 2007: LVEF 35-40% with moderate inferior wall hypokinesis (pre-angiogram) TTE 01/11/2017: LVEF 40-45% with basal inferior/inferolateral hypokinesis, no significant valvular abnormalities noted. Abdomen/pelvis chest CTA 01/10/2017: Limited examination due to the patient's size. No CT evidence of acute pulmonary embolic disease. Cholelithiasis. Low index of suspicion cystic entity within the pancreas as described. Consider followup imaging with pancreatic protocol in 3 to 6 months. A 8.5 cm right renal cyst. A hysterectomy. Low index of suspicion a 7.0 cm cystic entity left hemipelvis, perhaps a lymphocele. Assessment/Plan In summary Ailyn Peng is a 56-year-old woman with past medical history significant for adult with developmental cognitive disability, NICM, NSVT, SVT, episodes of chest pain ultimately found to be GI related, obesity admitted with symptomatic SVT with syncope in the setting of infection and low potassium level. Broke with adenosine now asymptomatic from a cardiac standpoint, LVEF 40 -45% - SVT likely triggered by active infection and low potassium level. Would treat infection as you are doing, keep K > 4.0 may need standing potassium supplement. Recommend changing metoprolol tartrate to succinate (toprol XL) and increase from 25 mg BID to 50 mg BID terminologist to try to suppress further arrhythmias, continue telemetry monitoring for now, continue with AceI Thank you for allowing me to participate in the cardiovascular care of this patient. Please do not hesitate to contact me with questions or concerns.
[2017-01-11] MEDS ORDERED: Magnesium Hydroxide LIQ* 30 ML UDC PO PRN (18:00)
[2017-01-11] MEDS: cefTRIAXone VIAL(*) 1,000 MG in NS 0.9% 50 ML* 50 ML IVPB SCH (19:29)
[2017-01-11] MEDS: Metoprolol Succinate XL TAB* 50 MG PO SCH (22:11)
--- NOTE | 2017-01-11 22:14 | CONS ---
SURGICAL CONSULT NOTE: DATE OF CONSULT: 01/11/17 ATTENDING SURGEON: Dr. Abhijit Reyes. (dictated by PINA Sutton) CHIEF COMPLAINT: Abdominal pain. HISTORY OF PRESENT ILLNESS: This is a 56-year-old female with developmental disability and she was unable to give complete medical history. Her history is largely supplied by her chart record and her sisters who are present. It seems that the patient had complained of right lower quadrant abdominal pain beginning 3 days ago that was described as being constant and worse with sitting up and with movement. The pain was also worse with cough. The patient did have some nausea but no vomiting. She did have decreased appetite and even today, her intake has been minimal. She apparently had an otherwise normal bowel movement last evening, though more often than not her stools tend to be loose. She has not had any previous similar symptoms. She has not had any previous abdominal surgeries, other than a hysterectomy for benign disease many years ago. She did have some sweats within the past couple of days, but no fever or chills. She was in the office of her primary care provider and had a syncopal episode. She was transferred to the [facility] ED where she was found to be in SVT, which responded to adenosine and has been in normal sinus rhythm since. There were no reported urinary symptoms, though her urinalysis appeared significant for UTI and she is currently on ceftriaxone for the same. Her culture is growing greater than 100,000 colonies of gram-negative bacilli. The patient has received a total of three doses of morphine 2 mg each thus far today. PAST MEDICAL HISTORY: Developmentally disabled, but has lived in her own home with a significant other who is currently in a rehab facility. Her niece has been living with her most recently. She has a past history of coronary artery disease, status post angioplasty in 2008. Her sisters were unsure if she had had any stent placement. Recent episodes of SVT (see separate consult from Dr. Magana), GERD, morbid obesity. The patient had undergone colonoscopy in 2012, which was a normal study. The patient did have unwitnessed syncopal like episode about 1 week earlier and sustained a laceration to the posterior occiput. This was closed with melanie, which were removed today. There is still some bloody oozing from the wound, but no evidence of infection. There is quite possibly small hematoma subcutaneously. PAST SURGICAL HISTORY: Previous surgeries include hysterectomy remotely for benign disease. She had also undergone excision of a right breast intraductal atypical papilloma with repeat surgery, four margins which were clear, in 2014. MEDICATIONS: Current medications include: Ceftriaxone. Her usual home meds include: 1. Fluoxetine. 2. Lisinopril. 3. Metoprolol. 4. Lactase. DRUG ALLERGIES: None known. SOCIAL HISTORY: As noted above. Remote past history of minimal tobacco use. PHYSICAL EXAM: Temperature 98.2, blood pressure 118/65, pulse 70, respirations 20, saturation 94% on 2 L nasal cannula. Height 5 feet 7 inches, weight 280 pounds, BMI 44. General: Morbidly obese female, lying in bed, and in no acute distress. She appears comfortable at the present time. HEENT: Posterior occipital laceration without evidence of infection. Pupils are somewhat asymmetrical with clear reaction to light on the right, less so on the left. EOMs are fully intact. Acuity appears to be intact. No specific testing was performed. No conjunctival pallor or scleral icterus. Oropharynx: She is edentulous. Mucous membranes are moist. Neck: No lymphadenopathy, thyromegaly , or masses. Heart: Regular rate and rhythm. No murmur noted. Lungs: Clear to auscultation. Abdomen: Her bowel sounds are present. She is obese. There is a well-healed lower midline incision from prior surgery. Abdomen is soft with fairly well-localized tenderness in the right midabdomen, which seems to be consistent from one person exam to the next. The remainder of the abdomen including above and below that area is without significant tenderness. There are no peritoneal signs. Genitalia and Rectal: Not done. Back: No spinous process or CVA tenderness. Extremities: No edema. Neurological: Grossly intact though with developmental disability. DIAGNOSTIC STUDIES/LAB DATA: Laboratory of note, white blood cell count on admission 19,400, repeat this morning 12,200 with a slight left shift. Chemistry is notable for mildly elevated troponins since last evening. Additionally, elevated lactic acid which repeat was normal. Blood glucose on admission 251, but normal this morning. Liver function tests have been normal as was lipase. Urinalysis was notable for specific gravity of 1.039, 1+ protein , ketones, and blood. Positive for nitrites as well as leukocyte esterase, 3+ wbc's and rbc's with squamous epithelial cells present. Culture as noted above. Imaging: CT scan (CTA) was performed, which was negative for PE. She does have an 8.5-cm right renal cyst which was present in past years and has gradually increased in size from initial study in 2006. There is a 1-cm cystic lesion in the body of the pancreas, which appears to be low suspicion. There is a left adnexal mass measuring 7 x 5.6 cm, possibly consistent with lymphocele. The CT also showed calcified gallstones but no evidence of acute inflammation. A ultrasound was done confirming the presence of stones but no gallbladder wall thickening, pericholecystic fluid or ductal dilatation. HIDA scan was obtained today, which was a normal study showing gallbladder filling and emptying without evidence of obstruction of the cystic or common bile ducts. IMPRESSION: Right-sided abdominal pain, not felt likely to be related to her cholelithiasis. PLAN: She is currently receiving ceftriaxone for the UTI and this would provide some coverage for organisms related to the gallbladder, though that may need to be modified. I will make her n.p.o. until she has been re-examined in the morning, in case there has been any significant change and we will repeat lab work as well. PINA LOPEZ CC: Dr. Dada Becerra, Family Medicine * [id number]/CPS #: [id number] MTDD
[2017-01-12 05:52] LABS: Hematocrit 41 % (35-47); Hemoglobin 13.4 g/dl (12.0-16.0); Mean Corpuscular HGB Conc 33 g/dl (31-36); Mean Corpuscular Hemoglobin 29 pg (27-31); Mean Corpuscular Volume 87 fL (80-97); Mean Platelet Volume 8 um3 (7.4-10.4); Red Blood Count 4.71 10^6/ul (4.0-5.4); Red Cell Distribution Width 14 % (10.5-15); White Blood Count 9.8 10^3/ul (3.5-10.8)
[2017-01-12] MEDS: Heparin VIAL(*) 5000 UNITS/ML VIAL (FIVE THOUSAND) SUBCUT SCH ×3 (06:22→21:22)
[2017-01-12 06:33] LABS: BUN/Creatinine Ratio 31.3 (8-20); Calcium 9.4 mg/dL (8.6-10.3); EGFR African American 170.8 (>60); EGFR Non-African American 132.8 (>60); Potassium 3.5 mmol/L (3.5-5.0)
--- NOTE | 2017-01-12 08:28 | PN ---
Subjective Date of Service: 01/12/17 Interval History: f/u svt no cp, dyspnea or palpitations still with ruq pain k 3.5 tele: NSR, some short NSVT vs. aberrant svt overnight DATE OF ADMISSION: 01/10/17 PRIMARY CARE PROVIDER: Dada Becerra MD Pediatric Licensed Practical Nurse: Dr. Trimble Service: hospitalist CC: Right upper quadrant pain, chest pain, syncope Reason for consult: SVT HISTORY OF PRESENT ILLNESS: Ms. Peng is a 56-year-old woman with past medical history significant for adult with developmental cognitive disability, NICM, SVT, episodes of chest pain ultimately found to be GI related, obesity. Patient limited historian, records taken from sisters present, chart and history available from patient. Had possible LOC episode 01/03/2017. She was found in NSR at that time. Had head laceration. Has had several days of RUQ pain. In PMD office Dr. Becerra today for follow up appointment had chest pain , possible palpitations dizziness and had LOC. Found with rapid SVT broke with adenosine 12 mg. K went from 3.7 to 3.1. Found with urosepsis and/or biliary sepsis being treated with antibiotics. Currently denies any lightheadedness, palpitations, dyspnea or syncope. PAST MEDICAL HISTORY: Hypertension. Developmental delay. Nonischemic cardiomyopathy. SVT NSVT Hyperlipidemia. Morbid obesity. PAST SURGICAL HISTORY: 1. Status post evacuation of right breast hematoma and reexcision of anterior right breast cavity from margin in 2013. 2. Status post terminal duct excision of the right breast in 2013. 3. Status post hysterectomy in the . 4. Status post cardiac catheterization in 2008 showing no significant CAD HOME MEDICATIONS: Include: 1. Lactase 3000 units oral 3 times daily. 2. Prozac 20 mg oral daily. 3. Metoprolol tartrate 25 mg oral twice daily. 4. Lisinopril 5 mg oral daily. ALLERGIES: No known drug allergies. FAMILY HISTORY: The patient's father had a history of [place], diabetes mellitus, pancreatic cancer and cerebrovascular accident. The patient's mother and brother also has a history of cerebrovascular accidents. SOCIAL HISTORY: The patient is a former smoker. She quit smoking approximately 20 years ago. The patient denies alcohol or recreational drug use. The patient is disabled. At this time she has other family members staying with her as her significant other is currently in a half-way receiving rehabilitation. The patient's sisters Bro Armenta, Jessica Huertas and Tish will be her surrogate decision makers in the event that she is unable to make decisions for herself. Medications Active Medications: Fluoxetine HCl (Prozac Cap*) 20 mg PO DAILY [facility] BEDS AT [facility] Last Admin: 01/11/17 09:33 Dose: 20 mg Heparin Sodium (Porcine) (Heparin Vial(*)) 5,000 units SUBCUT Q8HR [facility] 234 BEDS AT THE [facility] Last Admin: 01/12/17 06:22 Dose: 5,000 units Ceftriaxone Sodium 1,000 mg/ (Sodium Chloride) 50 mls @ 200 mls/hr IVPB Q24H [facility]S [facility] 234 BEDS AT THE [facility] Last Admin: 01/11/17 19:29 Dose: 200 mls/hr Influenza Virus Vaccine (Fluarix *Quad* *) 0.5 ml IM .ONCE ONE Stop: 01/12/17 09:01 Lisinopril (Prinivil Tab*) 5 mg PO DAILY [facility]S [facility]CLUDE 234 BEDS AT THE [facility] Last Admin: 01/11/17 09:33 Dose: 5 mg Magnesium Hydroxide (Milk Of Magnesia Liq*) 30 ml PO Q6H PRN PRN Reason: CONSTIPATION Metoprolol Succinate (Toprol Xl Tab*) 50 mg PO BID [facility]S INCLUDE 234 BEDS AT THE [facility] Last Admin: 01/11/17 22:11 Dose: 50 mg Morphine Sulfate (Morphine Inj (Syringe)*) 2 mg IV Q4H PRN PRN Reason: PAIN - MILD Last Admin: 01/11/17 22:10 Dose: 2 mg Objective Vital Signs: Temp Pulse Resp BP Pulse Ox 97.6 F 74 16 131/73 92 01/12/17 07:22 01/12/17 07:22 01/12/17 07:22 01/12/17 07:22 01/12/17 08:08 Oxygen Devices in Use Now: Nasal Cannula - 2L Appearance: pleasant, nad Ears/Nose/Mouth/Throat: Clear Oropharnyx, Mucous Membranes Moist Neck: NL Appearance and Movements; NL JVP Respiratory: Symmetrical Chest Expansion and Respiratory Effort, Clear to Auscultation Cardiovascular: NL Sounds; No Murmurs; No JVD, RRR, No Edema Abdominal: NL Sounds; No Tenderness; No Distention, - - obese Extremities: No Edema Skin: No Rash or Ulcers Neurological: - - awake and alert Laboratory Results: 01/12/17 05:15 01/12/17 05:15 Total Bilirubin 1.00 mg/dL (0.2-1.0) 01/10/17 14:45 AST 25 U/L (13-39) 01/10/17 14:45 ALT 28 U/L (7-52) 01/10/17 14:45 Alkaline Phosphatase 85 U/L (34-104) 01/10/17 14:45 Total Protein 8.1 g/dL (6.4-8.9) 01/10/17 14:45 Albumin 4.1 g/dL (3.2-5.2) 01/10/17 14:45 Globulin 4.0 g/dL (2-4) 01/10/17 14:45 Albumin/Globulin Ratio 1.0 (1-3) 01/10/17 14:45 TSH 1.11 mcIU/mL (0.34-5.60) 01/11/17 04:39 Diagnostic Imaging: EKG 01/03/2017: NSR, IVCD, asymmetric ST TWI/ST depression diffuse suggestive of myocardial ischemia EKG 01/10/2017: Likely SVT with CRISTO in aVR and V1 with diffuse downsloping ST depression TTE 2007: LVEF 35-40% with moderate inferior wall hypokinesis (pre-angiogram) TTE 01/11/2017: LVEF 40-45% with basal inferior/inferolateral hypokinesis, no significant valvular abnormalities noted. Abdomen/pelvis chest CTA 01/10/2017: Limited examination due to the patient's size. No CT evidence of acute pulmonary embolic disease. Cholelithiasis. Low index of suspicion cystic entity within the pancreas as described. Consider followup imaging with pancreatic protocol in 3 to 6 months. A 8.5 cm right renal cyst. A hysterectomy. Low index of suspicion a 7.0 cm cystic entity left hemipelvis, perhaps a lymphocele. Assessment/Plan In summary Ailyn Peng is a 56-year-old woman with past medical history significant for adult with developmental cognitive disability, NICM, NSVT, SVT, episodes of chest pain ultimately found to be GI related, obesity admitted with symptomatic SVT with syncope in the setting of infection and low potassium level. Broke with adenosine now asymptomatic from a cardiac standpoint, LVEF 40 -45%. SVT likely triggered by active infection and low potassium level. Would treat infection as you are doing, keep K > 4.0 may need standing potassium supplement. metoprolol tartrate was changed to succinate (toprol XL) and increased from 25 mg BID to 50 mg BID jail to try to suppress further arrhythmias - Would supplement K+ to keep 4 or greater - No type acute plaque disruption 1 SC, decompensated HF, sustained malignant arrhythmia or severe valve disease. No absolute contraindication to possible cholecystectomy and could proceed without further cardiac intervention other than above changes. I discussed with sister (patient does not appear to have capacity to consent) that there are some inherent risks for cardiovascular complications from proposed surgery and anesthesia that she understands and would accept that risk in favor of expected benefit the surgery would provide. I did discuss that any arrhythmias could be treated with IV adenosine or if does not respond or hemodynamicaly unstable with external electrical cardioversion (would leave pads/external monitoring in place during surgery) Thank you for allowing me to participate in the cardiovascular care of this patient. Please do not hesitate to contact me with questions or concerns.
[2017-01-12] MEDS ORDERED: Influenza VAC *QUAD* 2016-17* 0.5 ML SYRINGE IM ONE (09:00)
[2017-01-12] MEDS ORDERED: KCL 20 MEQ/100 ML IVPREMIX* 20 MEQ/100 ML BAG IV ONE (10:02)
--- NOTE | 2017-01-12 10:24 | PN ---
Subjective Date of Service: 01/12/17 Interval History: Patient seen and examined at bedside. Denies fever, chills, shortness of breath , chest discomfort, palpitations, N/V/D. Pt's family reports her last BM on Sunday. Pt has not been up and ambulating much fear of falling, Pt encouraged to ambulate with staff. Pt continues to complain of right sided abdominal pain. Tele: Sinus rhythm, rate 70's. Pt noted to have a few short runs of non sustained V tach overnight (5-7 beats). Family History: Unchanged from Admission Social History: Unchanged from Admission Past Medical History: Unchanged from Admission Objective Active Medications: Fluoxetine HCl (Prozac Cap*) 20 mg PO DAILY [facility] Heparin Sodium (Porcine) (Heparin Vial(*)) 5,000 units SUBCUT Q8HR [facility] Ceftriaxone Sodium 1,000 mg/ (Sodium Chloride) 50 mls @ 200 mls/hr IVPB Q24H [facility] Potassium Chloride (Potassium Chloride 20 Meq/100 Ml Ivpremix*) 20 meq in 100 mls @ 50 mls/hr IV ONCE ONE Stop: 01/12/17 12:01 Lisinopril (Prinivil Tab*) 5 mg PO DAILY [facility] Magnesium Hydroxide (Milk Of Magnesia Liq*) 30 ml PO Q6H PRN Reason: CONSTIPATION Metoprolol Succinate (Toprol Xl Tab*) 50 mg PO BID [facility] Morphine Sulfate (Morphine Inj (Syringe)*) 2 mg IV Q4H PRN Reason: PAIN - MILD Potassium Chloride (Klor Con Er Tab*) 20 meq PO Q4H [facility] Stop: 01/12/17 15:01 Vital Signs 01/11/17 01/11/17 01/11/17 11:45 15:12 15:33 Temperature 98.2 F 98.7 F Pulse Rate 70 76 Respiratory 20 16 16 Rate Blood Pressure 118/65 128/72 (mmHg) O2 Sat by Pulse 94 93 Oximetry 01/11/17 01/11/17 01/11/17 16:12 18:15 18:17 Temperature Pulse Rate Respiratory 18 Rate Blood Pressure (mmHg) O2 Sat by Pulse 95 95 Oximetry 01/11/17 01/11/17 01/11/17 19:28 19:40 20:00 Temperature 98.0 F Pulse Rate 82 Respiratory 18 16 16 Rate Blood Pressure 139/73 (mmHg) O2 Sat by Pulse 95 Oximetry 01/11/17 01/11/17 01/11/17 22:10 23:10 23:40 Temperature 97.7 F Pulse Rate 77 Respiratory 20 16 16 Rate Blood Pressure 124/76 (mmHg) O2 Sat by Pulse 93 Oximetry 01/12/17 01/12/17 01/12/17 00:00 03:16 07:22 Temperature 98.0 F 97.6 F Pulse Rate 76 74 Respiratory 17 16 Rate Blood Pressure 130/73 131/73 (mmHg) O2 Sat by Pulse 93 90 92 Oximetry 01/12/17 08:08 Temperature Pulse Rate Respiratory Rate Blood Pressure (mmHg) O2 Sat by Pulse 92 Oximetry Oxygen Devices in Use Now: Nasal Cannula - 2L Eyes: No Scleral Icterus, PERRLA - Left pupil is slightly larger than the right , both reactive to light Ears/Nose/Mouth/Throat: NL Teeth, Lips, Gums, Mucous Membranes Moist Neck: NL Appearance and Movements; NL JVP, Trachea Midline Respiratory: Symmetrical Chest Expansion and Respiratory Effort, Clear to Auscultation Cardiovascular: NL Sounds; No Murmurs; No JVD, RRR Abdominal: - - Bowel sounds present. Abdomen large, soft, tender in the right upper quad more lateral. Extremities: No Edema Skin: - - 1 inch laceration to posterior scalp, with small amount of old bloody drainage. Neurological: Alert and Oriented x 3, NL Muscle Strength and Tone Lines/Tubes/Other Access: Clean, Dry and Intact Peripheral IV - site benign Nutrition: Taking PO's - NPO at this time for possible surgery Result Diagrams: 01/12/17 05:15 01/12/17 05:15 Assess/Plan/Problems-Billing Assessment: Ms. Peng is a 56 yo female with PMH significant for paroxysmal SVT, angina, HTN, developmental delay, nonischemic cardiomyopathy, HLD, and morbid obesity who presented to the emergency room with SVT after a syncopal epsiode. She was also found to have a UTI and symptomatic cholelithiasis. - Patient Problems (1) SVT (supraventricular tachycardia) Code(s): I47.1 - SUPRAVENTRICULAR TACHYCARDIA SNOMED Code(s): 8730498 Comment: - Resolved after receiving 2 doses of adenosine in the ED - Now in Sinus rhythm on tele, few short runs of VT overnight - Suspect this is related to infection (UTI) and low K - TSH 1.11 - Appreciate cardiology assistance - Continue Toprol 50 BID - Goal K+ >4, will give replacement today (2) Elevated troponin Code(s): R74.8 - ABNORMAL LEVELS OF OTHER SERUM ENZYMES SNOMED Code(s): 756730915 Comment: - Peaked at 0.21 - Denies chest pain - Ischemic changes on EKG, but similar to previous EKG from 01/03/17 and 09/2015 - Echo shows mild to moderate concentric LVH, a focal wall motion abnormality, the proximal inferior low posterolateral wall more hypokinetic than other areas. EF 40-45% - Cardiology consult, appreciate input (3) Cholelithiasis Comment: - Symptomatic - Right sided tenderness - Seen on CTA and GB ultrasound. HIDA scan normal - Surgery consult, will re-eval today (4) Electrolyte abnormality Code(s): E87.8 - OTH DISORDERS OF ELECTROLYTE AND FLUID BALANCE, NEC SNOMED Code(s): 041863556 Comment: - Hypokalemia - K 3.5 this AM, goal > 4. Will give replacement - Will add a magnesium to today's labs (5) Syncope Code(s): R55 - SYNCOPE AND COLLAPSE SNOMED Code(s): 028468466 Comment: - Seems most likely due to combination of dehydration and rapid HR from arrythmia. - Had a few short runs of V tach overnight - Continue to monitor on tele (6) UTI (urinary tract infection) Comment: - UA appears to have a UTI - UCx with E Coli - Blood cultures, no growth day 1 - Will continue ceftriaxone (7) Cardiomyopathy, nonischemic Code(s): I42.9 - CARDIOMYOPATHY, UNSPECIFIED SNOMED Code(s): 08511383 Comment: - Metoprolol as above. Continue Lisinopril - Currently not on a statin (8) HTN (hypertension) Code(s): I10 - ESSENTIAL (PRIMARY) HYPERTENSION SNOMED Code(s): 17511037 Comment: - Controlled, SBO 120-130's - Continue lisinopril. (9) DVT prophylaxis Code(s): JXA7501 - SNOMED Code(s): 943300893 Comment: - SQ heparin (10) Full code status Code(s): Z78.9 - OTHER SPECIFIED HEALTH STATUS SNOMED Code(s): 779494346 Status and Disposition: OBV to Inpatient. Pt presented to ED with SVT, found to have symptomatic cholelithiasis, elevated troponins, and UTI. Plan for discharge to home when medically stable.
[2017-01-12] MEDS: Potassium Chlor TAB* 20 MEQ TAB.ER PO SCH ×2 (10:35→15:10)
[2017-01-12] MEDS: Metoprolol Succinate XL TAB* 50 MG PO SCH ×2 (10:35→21:20)
[2017-01-12] MEDS: FLUoxetine CAP* 20 MG PO SCH (10:36)
--- NOTE | 2017-01-12 11:07 | PN ---
Progress Note - Progress Note SOAP: Subjective:hungry,no nausea,passing flatus [] Objective:abd+bs,obese,soft;on deep palpation there is mild tenderness right mid abdomen but with repeated palpation cannot always be elicited;no guarding; no rebound [] Assessment:no acute abdominal findings,no surgical intervention at this time [] Plan:ok to start clear liquid diet and advance as tolerated;recall prn []
[2017-01-12] MEDS: Lisinopril TAB* 5 MG PO SCH (15:12)
[2017-01-12] MEDS: cefTRIAXone VIAL(*) 1,000 MG in NS 0.9% 50 ML* 50 ML IVPB SCH (21:12)
[2017-01-13] MEDS: Heparin VIAL(*) 5000 UNITS/ML VIAL (FIVE THOUSAND) SUBCUT SCH ×3 (05:15→22:00)
[2017-01-13 05:31] LABS: BUN/Creatinine Ratio 18.2 (8-20); Calcium 9.6 mg/dL (8.6-10.3); EGFR African American 188.9 (>60); EGFR Non-African American 146.9 (>60); Potassium 3.6 mmol/L (3.5-5.0)
[2017-01-13] MEDS: Lisinopril TAB* 5 MG PO SCH (08:58)
[2017-01-13] MEDS: FLUoxetine CAP* 20 MG PO SCH (08:58)
[2017-01-13] MEDS: Metoprolol Succinate XL TAB* 50 MG PO SCH ×2 (08:58→22:00)
--- NOTE | 2017-01-13 11:26 | RAD ---
HISTORY: Hypoxia COMPARISONS: Every July 15, 2017 VIEWS: 2: Frontal and lateral views of the chest. FINDINGS: CARDIOMEDIASTINAL SILHOUETTE: The cardiac silhouette is enlarged. The cardiomediastinal silhouette is otherwise normal. FARIDEH: The farideh are normal. PLEURA: The costophrenic angles are sharp. No pleural abnormalities are noted. LUNG PARENCHYMA: There is prominence of the central pulmonary vasculature, with improved aeration compared to the previous examination ABDOMEN: The upper abdomen is clear. There is no subphrenic gas. BONES AND SOFT TISSUES: No bone or soft tissue abnormalities are noted. OTHER: None. IMPRESSION: CARDIOMEGALY WITH PULMONARY VASCULAR CONGESTION
[2017-01-13] MEDS ORDERED: Potassium Chlor TAB* 20 MEQ TAB.ER PO ONE (11:49)
--- NOTE | 2017-01-13 11:51 | PN ---
Subjective Date of Service: 01/13/17 Interval History: patient reports she "feels good" but is having RUQ abdominal pain thinks it is the same as yesterday. No N/V/D. Reports she is passing flatulence and is having BMs. Denies CP or SOB Family History: Unchanged from Admission Social History: Unchanged from Admission Past Medical History: Unchanged from Admission Objective Active Medications: Fluoxetine HCl (Prozac Cap*) 20 mg PO DAILY [facility] Last Admin: 01/13/17 08:58 Dose: 20 mg Heparin Sodium (Porcine) (Heparin Vial(*)) 5,000 units SUBCUT Q8HR [facility] Last Admin: 01/13/17 05:15 Dose: 5,000 units Ceftriaxone Sodium 1,000 mg/ (Sodium Chloride) 50 mls @ 200 mls/hr IVPB Q24H [facility] Last Admin: 01/12/17 21:12 Dose: 200 mls/hr Lisinopril (Prinivil Tab*) 5 mg PO DAILY [facility] Last Admin: 01/13/17 08:58 Dose: 5 mg Magnesium Hydroxide (Milk Of Magnmark Liq*) 30 ml PO Q6H PRN PRN Reason: CONSTIPATION Metoprolol Succinate (Toprol Xl Tab*) 50 mg PO BID [facility] Last Admin: 01/13/17 08:58 Dose: 50 mg Morphine Sulfate (Morphine Inj (Syringe)*) 2 mg IV Q4H PRN PRN Reason: PAIN - MILD Last Admin: 01/11/17 22:10 Dose: 2 mg Vital Signs 01/12/17 01/12/17 01/12/17 13:03 16:00 16:20 Temperature 97.4 F Pulse Rate 74 70 Respiratory 16 16 Rate Blood Pressure 146/83 130/74 (mmHg) O2 Sat by Pulse 95 92 93 Oximetry 01/12/17 01/12/17 01/12/17 16:42 19:49 20:00 Temperature 98.4 F Pulse Rate 73 Respiratory 16 16 Rate Blood Pressure 132/76 (mmHg) O2 Sat by Pulse 94 94 Oximetry 01/12/17 01/12/17 01/13/17 23:47 23:57 03:26 Temperature 98.3 F 97.4 F Pulse Rate 66 72 Respiratory 16 20 Rate Blood Pressure 125/68 135/78 (mmHg) O2 Sat by Pulse 93 94 91 Oximetry 01/13/17 01/13/17 07:31 07:39 Temperature 98.3 F Pulse Rate 72 Respiratory 16 16 Rate Blood Pressure 114/78 (mmHg) O2 Sat by Pulse 91 91 Oximetry Oxygen Devices in Use Now: Nasal Cannula - 2L Appearance: obese female sitting up in a chair in NAD. A+O x3, noted intellectual disability Eyes: No Scleral Icterus, PERRLA Ears/Nose/Mouth/Throat: NL Teeth, Lips, Gums, Mucous Membranes Moist Neck: NL Appearance and Movements; NL JVP Respiratory: Symmetrical Chest Expansion and Respiratory Effort, Clear to Auscultation Cardiovascular: RRR, No Edema Abdominal: - - obese, non-distended, tenderness to RUQ with palpation - no guarding Lymphatic: No Cervical Adenopathy Extremities: No Edema, No Clubbing, Cyanosis Skin: No Rash or Ulcers, No Nodules or Sclerosis Neurological: Alert and Oriented x 3, NL Sensation, NL Gait, NL Muscle Strength and Tone Lines/Tubes/Other Access: Clean, Dry and Intact Peripheral IV Nutrition: Taking PO's Result Diagrams: 01/12/17 05:15 01/13/17 05:10 Assess/Plan/Problems-Billing Assessment: Ms. Peng is a 56 yo female with PMH significant for paroxysmal SVT, angina, HTN, developmental delay, nonischemic cardiomyopathy, HLD, and morbid obesity who presented to the emergency room with SVT after a syncopal epsiode. She was also found to have a UTI and symptomatic cholelithiasis. - Patient Problems (1) Cholelithiasis Comment: - Cholelithiasis noted on CTA and GB ultrasound with a normal HIDA scan. - Appreciate surgery consult - no acute findings, no surgical intervention at this time, advance diet as tolerated - Unclear if RUQ pain is related to cholethiasis - per surgery team thinks this is unlikely. Will continue clear diet and re-evaluate this afternoon. (2) SVT (supraventricular tachycardia) Current Visit: Yes Status: Acute Code(s): I47.1 - SUPRAVENTRICULAR TACHYCARDIA SNOMED Code(s): 0272511 Comment: - Resolved after receiving 2 doses of adenosine in the ED - Now in Sinus rhythm on tele, intermittent runs of VT, this morning 22 beat of Vtach. Discussed with Dr. Trimble he will round on the pt today. It is possible the pt may need a cardiac cath. - TSH 1.11 - Continue Toprol 50 BID (3) Elevated troponin Comment: - Peaked at 0.21 - Denies chest pain - Ischemic changes on EKG, but similar to previous EKG from 01/03/17 and 09/2015 - Echo shows mild to moderate concentric LVH, a focal wall motion abnormality, the proximal inferior low posterolateral wall more hypokinetic than other areas. EF 40-45% - Cardiology consult, appreciate input (4) Syncope Status: Acute Comment: - Seems most likely due to combination of dehydration and rapid HR from arrythmia. - Continue to monitor on tele (5) Cardiomyopathy, nonischemic Comment: - TTE showing improvement LVEF 40-45% up from 30-35% 09/2015 - Metoprolol as above. Continue Lisinopril (6) UTI (urinary tract infection) Comment: - UA appears to have a UTI - UCx with E Coli - Blood cultures, no growth day 1 - DC ceftriaxone switch to cipro PO (7) Electrolyte abnormality Comment: - Potassium goal > 4. Will give replacement today - Magnesium Goal 2. Will add a magnesium to today's labs (8) Cognitive developmental delay Comment: Supportive care (9) HTN (hypertension) Comment: - Controlled, SBO 120-130's - Continue lisinopril. (10) DVT prophylaxis Comment: - SQ heparin (11) Full code status Status and Disposition: Inpatient. Pt presented to ED with SVT, found to have symptomatic cholelithiasis, elevated troponins, and UTI. Plan for discharge to home when medically stable.
[2017-01-13] MEDS ORDERED: Furosemide IV* 10 MG/ML 10 ML VIAL (100 MG) IV ONE (16:23)
[2017-01-13] MEDS: Ciprofloxacin TAB* 500 MG PO SCH (22:00)
[2017-01-14 05:39] LABS: Hematocrit 42 % (35-47); Hemoglobin 13.7 g/dl (12.0-16.0); Mean Corpuscular HGB Conc 33 g/dl (31-36); Mean Corpuscular Hemoglobin 29 pg (27-31); Mean Corpuscular Volume 88 fL (80-97); Mean Platelet Volume 8 um3 (7.4-10.4); Red Blood Count 4.75 10^6/ul (4.0-5.4); Red Cell Distribution Width 14 % (10.5-15); White Blood Count 10.6 10^3/ul (3.5-10.8)
[2017-01-14] MEDS: Heparin VIAL(*) 5000 UNITS/ML VIAL (FIVE THOUSAND) SUBCUT SCH ×3 (05:40→22:55)
[2017-01-14 05:43] LABS: Comments Flag Yes
[2017-01-14 05:44] LABS: Add Diff/Slide Review? Slide Review Added
[2017-01-14 05:52] LABS: BUN/Creatinine Ratio 26.5 (8-20); Calcium 9.7 mg/dL (8.6-10.3); EGFR African American 166.8 (>60); EGFR Non-African American 129.7 (>60); HDL Cholesterol 25.7 mg/dL; Potassium 3.8 mmol/L (3.5-5.0)
--- NOTE | 2017-01-14 10:23 | PN ---
Subjective Date of Service: 01/14/17 Interval History: Ms. Peng is feeling better today. Offers no complaints. Reports she is tolerating her diet well. no abdominal pain, nausea or vomiting. Feels steady on her feet. Denies CP or SOB. Family History: Unchanged from Admission Social History: Unchanged from Admission Past Medical History: Unchanged from Admission Objective Active Medications: Ciprofloxacin (Cipro Tab*) 500 mg PO Q12HR [facility] Stop: 01/18/17 20:59 Last Admin: 01/13/17 22:00 Dose: 500 mg Fluoxetine HCl (Prozac Cap*) 20 mg PO DAILY [facility] Last Admin: 01/13/17 08:58 Dose: 20 mg Heparin Sodium (Porcine) (Heparin Vial(*)) 5,000 units SUBCUT Q8HR [facility] Last Admin: 01/14/17 05:40 Dose: 5,000 units Lisinopril (Prinivil Tab*) 5 mg PO DAILY [facility] Last Admin: 01/13/17 08:58 Dose: 5 mg Magnesium Hydroxide (Milk Of Magnesia Liq*) 30 ml PO Q6H PRN PRN Reason: CONSTIPATION Metoprolol Succinate (Toprol Xl Tab*) 50 mg PO BID [facility] Last Admin: 01/13/17 22:00 Dose: 50 mg Morphine Sulfate (Morphine Inj (Syringe)*) 2 mg IV Q4H PRN PRN Reason: PAIN - MILD Last Admin: 01/11/17 22:10 Dose: 2 mg Vital Signs 01/13/17 01/13/17 01/13/17 11:18 16:00 16:04 Temperature 98.0 F 98.4 F Pulse Rate 72 68 Respiratory 16 18 Rate Blood Pressure 125/68 143/79 (mmHg) O2 Sat by Pulse 93 94 94 Oximetry 01/13/17 01/13/17 01/13/17 19:48 20:00 23:44 Temperature 98.2 F 97.8 F Pulse Rate 70 72 Respiratory 18 18 16 Rate Blood Pressure 133/78 113/67 (mmHg) O2 Sat by Pulse 95 92 Oximetry 01/14/17 01/14/17 01/14/17 00:00 03:47 04:54 Temperature 97.8 F Pulse Rate 66 Respiratory 16 Rate Blood Pressure 128/71 (mmHg) O2 Sat by Pulse 92 95 93 Oximetry Oxygen Devices in Use Now: None Appearance: 56 yo female with mild Intellectual Disability A+O x3 in NAD Eyes: No Scleral Icterus, PERRLA Ears/Nose/Mouth/Throat: NL Teeth, Lips, Gums, Mucous Membranes Moist Neck: NL Appearance and Movements; NL JVP Respiratory: Symmetrical Chest Expansion and Respiratory Effort, Clear to Auscultation Cardiovascular: NL Sounds; No Murmurs; No JVD, RRR, No Edema Abdominal: NL Sounds; No Tenderness; No Distention, - - obese Lymphatic: No Cervical Adenopathy Extremities: No Edema, No Clubbing, Cyanosis Skin: No Rash or Ulcers, No Nodules or Sclerosis Neurological: Alert and Oriented x 3, NL Sensation, NL Gait, NL Muscle Strength and Tone Lines/Tubes/Other Access: Clean, Dry and Intact Peripheral IV Nutrition: Taking PO's Result Diagrams: 01/14/17 05:28 01/14/17 05:28 Assess/Plan/Problems-Billing Assessment: Ms. Peng is a 56 yo female with PMH significant for paroxysmal SVT, angina, HTN, developmental delay, nonischemic cardiomyopathy, HLD, and morbid obesity who presented to the emergency room with SVT after a syncopal epsiode. She was also found to have a UTI and questionable cholelithiasis. - Patient Problems (1) Cholelithiasis Comment: - Cholelithiasis noted on CTA and GB ultrasound with a normal HIDA scan. - Appreciate surgery consult - no acute findings, no surgical intervention at this time, advance diet as tolerated - Unclear if RUQ pain is related to cholethiasis - per surgery team thinks this is unlikely. - tolerating low fat diet (2) SVT (supraventricular tachycardia) Current Visit: Yes Status: Acute Code(s): I47.1 - SUPRAVENTRICULAR TACHYCARDIA SNOMED Code(s): 5382346 Comment: - Resolved after receiving 2 doses of adenosine in the ED - Now in Sinus rhythm on tele, intermittent runs of VT, yesterday 22 beat of sustained Vtach which cards is most worried about. Discussed with Dr. Trimble , plan for nuclear cardiac stress test tomorrow. It is possible the pt may need a cardiac cath. Cath in 2008 wgich was clean. - TSH 1.11 - Keep magneisum 2, and potassium 4 - Continue Toprol 50 BID (3) Elevated troponin Comment: - Peaked at 0.21 - Denies chest pain - Ischemic changes on EKG, but similar to previous EKG from 01/03/17 and 09/2015 - Echo shows mild to moderate concentric LVH, a focal wall motion abnormality, the proximal inferior low posterolateral wall more hypokinetic than other areas. EF 40-45% - Cardiology consult, appreciate input (4) Syncope Status: Acute Comment: - Seems most likely due to combination of dehydration and rapid HR from arrythmia. - Continue to monitor on tele (5) Cardiomyopathy, nonischemic Comment: - TTE showing improvement LVEF 40-45% up from 30-35% 09/2015 - Metoprolol as above. Continue Lisinopril (6) UTI (urinary tract infection) Comment: - UA appears to have a UTI - UCx with E Coli - Blood cultures, no growth day 1 - DC ceftriaxone switch to Macrobid (was on cipro but concerned for QTc prolongation) (7) Electrolyte abnormality Comment: - Potassium goal > 4. Will give replacement today - Magnesium Goal 2. Will add a magnesium to today's labs (8) Cognitive developmental delay Comment: Supportive care (9) HTN (hypertension) Comment: - Controlled, SBO 120-130's - Continue lisinopril. (10) DVT prophylaxis Comment: - SQ heparin (11) Full code status Status and Disposition: Inpatient. Pt presented to ED with SVT, found to have questionable cholelithiasis, elevated troponins, and UTI. Having runs of Vtach - plan for cardiac stress test in am, if abnormal may need cardiac cath. Plan for discharge to home when medically stable.
[2017-01-14] MEDS: Lisinopril TAB* 5 MG PO SCH (10:50)
[2017-01-14] MEDS: Metoprolol Succinate XL TAB* 50 MG PO SCH ×2 (10:50→20:39)
[2017-01-14] MEDS: Ciprofloxacin TAB* 500 MG PO SCH (10:51)
[2017-01-14] MEDS: FLUoxetine CAP* 20 MG PO SCH (10:51)
[2017-01-14] MEDS: Nitrofurantoin Macrocrystals* 100 MG CAP PO SCH (22:55)
[2017-01-15] MEDS: Heparin VIAL(*) 5000 UNITS/ML VIAL (FIVE THOUSAND) SUBCUT SCH ×3 (05:17→23:33)
[2017-01-15 05:25] LABS: Hematocrit 43 % (35-47); Hemoglobin 14.2 g/dl (12.0-16.0); Mean Corpuscular HGB Conc 33 g/dl (31-36); Mean Corpuscular Hemoglobin 29 pg (27-31); Mean Corpuscular Volume 87 fL (80-97); Mean Platelet Volume 8 um3 (7.4-10.4); Red Blood Count 4.96 10^6/ul (4.0-5.4); Red Cell Distribution Width 14 % (10.5-15); White Blood Count 12.2 10^3/ul (3.5-10.8)
[2017-01-15 05:31] LABS: Add Diff/Slide Review? Slide Review Added; Comments Flag Yes
[2017-01-15 05:41] LABS: BUN/Creatinine Ratio 30.5 (8-20); Calcium 9.7 mg/dL (8.6-10.3); EGFR African American 134.6 (>60); EGFR Non-African American 104.7 (>60); Potassium 3.8 mmol/L (3.5-5.0)
[2017-01-15] MEDS ORDERED: Regadenoson* 0.4 MG/5 ML SYRINGE ONE (09:28)
[2017-01-15] MEDS: Lisinopril TAB* 5 MG PO SCH (11:30)
[2017-01-15] MEDS: Nitrofurantoin Macrocrystals* 100 MG CAP PO SCH ×2 (11:30→23:31)
[2017-01-15] MEDS: Metoprolol Succinate XL TAB* 50 MG PO SCH ×2 (11:30→23:31)
[2017-01-15] MEDS: FLUoxetine CAP* 20 MG PO SCH (11:30)
[2017-01-15] MEDS ORDERED: Potassium Chlor TAB* 20 MEQ TAB.ER PO ONE (12:38)
--- NOTE | 2017-01-15 12:44 | PN ---
Subjective Date of Service: 01/15/17 Interval History: Patient seen and examined at bedside. Pt states that she is feeling well. Denies fever, chills, shortness of breath, chest discomfort, abdominal pain, N/ V. Pt had a loose stool this morning, per Pt's family this is her baseline. Pt has been up and ambulating. Tele: Sinus rhythm, rate 70-80's. Occasional short runs of V tach. Family History: Unchanged from Admission Social History: Unchanged from Admission Past Medical History: Unchanged from Admission Objective Active Medications: Fluoxetine HCl (Prozac Cap*) 20 mg PO DAILY [facility] Heparin Sodium (Porcine) (Heparin Vial(*)) 5,000 units SUBCUT Q8HR [facility] Lisinopril (Prinivil Tab*) 5 mg PO DAILY [facility] Magnesium Hydroxide (Milk Of Magnesia Liq*) 30 ml PO Q6H PRN Reason: CONSTIPATION Metoprolol Succinate (Toprol Xl Tab*) 50 mg PO BID [facility] Morphine Sulfate (Morphine Inj (Syringe)*) 2 mg IV Q4H PRN Reason: PAIN - MILD Nitrofurantoin Macrocrystals (Macrodantin*) 100 mg PO BID [facility] Stop: 01/19/17 20 :59 Potassium Chloride (Klor Con Er Tab*) 20 meq PO ONCE ONE Stop: 01/15/17 12:39 Vital Signs 01/14/17 01/14/17 01/14/17 16:00 16:01 17:30 Temperature 98.0 F Pulse Rate 74 Respiratory 15 Rate Blood Pressure 96/57 126/70 (mmHg) O2 Sat by Pulse 92 92 Oximetry 01/14/17 01/14/17 01/14/17 19:37 20:00 23:32 Temperature 98.1 F Pulse Rate 72 72 Respiratory 20 20 Rate Blood Pressure 98/55 119/70 (mmHg) O2 Sat by Pulse 90 89 Oximetry 01/15/17 01/15/17 01/15/17 00:00 03:57 05:28 Temperature 97.8 F Pulse Rate 70 Respiratory 16 Rate Blood Pressure 134/78 (mmHg) O2 Sat by Pulse 91 94 94 Oximetry 01/15/17 01/15/17 01/15/17 07:40 08:00 11:01 Temperature 98.6 F Pulse Rate 70 Respiratory 16 20 Rate Blood Pressure 128/76 (mmHg) O2 Sat by Pulse 94 94 Oximetry 01/15/17 12:20 Temperature 97.1 F Pulse Rate 84 Respiratory 18 Rate Blood Pressure 133/80 (mmHg) O2 Sat by Pulse 96 Oximetry Oxygen Devices in Use Now: Nasal Cannula - 2L Appearance: NAD, sitting up in a chair Eyes: No Scleral Icterus, PERRLA Ears/Nose/Mouth/Throat: NL Teeth, Lips, Gums, Mucous Membranes Moist Neck: NL Appearance and Movements; NL JVP, Trachea Midline Respiratory: Symmetrical Chest Expansion and Respiratory Effort, Clear to Auscultation Cardiovascular: NL Sounds; No Murmurs; No JVD, RRR Abdominal: NL Sounds; No Tenderness; No Distention Extremities: No Edema Skin: No Rash or Ulcers Neurological: Alert and Oriented x 3, NL Muscle Strength and Tone Lines/Tubes/Other Access: Clean, Dry and Intact Peripheral IV - site benign Nutrition: Taking PO's Result Diagrams: 01/15/17 05:13 01/15/17 05:13 Assess/Plan/Problems-Billing Assessment: Ms. Peng is a 56 yo female with PMH significant for paroxysmal SVT, angina, HTN, developmental delay, nonischemic cardiomyopathy, HLD, and morbid obesity who presented to the emergency room with SVT after a syncopal epsiode. She was also found to have a UTI and questionable cholelithiasis. - Patient Problems (1) SVT (supraventricular tachycardia) Code(s): I47.1 - SUPRAVENTRICULAR TACHYCARDIA SNOMED Code(s): 6939032 Comment: - Resolved after receiving 2 doses of adenosine in the ED - Now in Sinus rhythm on tele, intermittent runs of VT, 01/13 - 22 beat of sustained Vtach which cards is most worried about. - Nuclear cardiac stress test, 2 day protocol. It is possible the pt may need a cardiac cath. Cath in 2008 which was clean. - TSH 1.11 - Keep magneisum > 2, and potassium > 4 - Continue Toprol 50 BID (2) Elevated troponin Code(s): R74.8 - ABNORMAL LEVELS OF OTHER SERUM ENZYMES SNOMED Code(s): 631648210 Comment: - Peaked at 0.21 - Denies chest pain - Ischemic changes on EKG, but similar to previous EKG from 01/03/17 and 09/2015 - Echo shows mild to moderate concentric LVH, a focal wall motion abnormality, the proximal inferior low posterolateral wall more hypokinetic than other areas. EF 40-45% - Cardiology consult, appreciate input - Nuclear stress test, 2 day protocol. (3) Cholelithiasis Comment: - Cholelithiasis noted on CTA and GB ultrasound with a normal HIDA scan. - Appreciate surgery consult - no acute findings, no surgical intervention at this time, advance diet as tolerated - Unclear if RUQ pain is related to cholethiasis - per surgery team thinks this is unlikely. - Tolerating low fat diet (4) Electrolyte abnormality Code(s): E87.8 - OTH DISORDERS OF ELECTROLYTE AND FLUID BALANCE, NEC SNOMED Code(s): 233896687 Comment: - Potassium goal > 4. Will give replacement today - Magnesium Goal 2. Will check a magnesium in the AM (5) Syncope Code(s): R55 - SYNCOPE AND COLLAPSE SNOMED Code(s): 684401849 Comment: - Seems most likely due to combination of dehydration and rapid HR from arrythmia. - Continue to monitor on tele (6) UTI (urinary tract infection) Comment: - UCx with E Coli - Blood cultures, no growth day 4 - Continue Macrobid (7) Cardiomyopathy, nonischemic Code(s): I42.9 - CARDIOMYOPATHY, UNSPECIFIED SNOMED Code(s): 97474788 Comment: - TTE showing improvement LVEF 40-45% up from 30-35% 09/2015 - Metoprolol as above. Continue Lisinopril (8) HTN (hypertension) Code(s): I10 - ESSENTIAL (PRIMARY) HYPERTENSION SNOMED Code(s): 23390092 Comment: - Controlled, SBP 90-130's - Continue lisinopril. (9) DVT prophylaxis Code(s): GDP6559 - SNOMED Code(s): 346616722 Comment: - SQ heparin (10) Full code status Code(s): Z78.9 - OTHER SPECIFIED HEALTH STATUS SNOMED Code(s): 660920829 Status and Disposition: Inpatient. Pt presented to ED with SVT, found to have questionable cholelithiasis, elevated troponins, and UTI. Having runs of Vtach - plan for completion of cardiac stress test in am, if abnormal may need cardiac cath. Plan for discharge to home when medically stable.
[2017-01-16 05:17] LABS: BUN/Creatinine Ratio 27.9 (8-20); Calcium 9.9 mg/dL (8.6-10.3); EGFR African American 129.6 (>60); EGFR Non-African American 100.7 (>60); Potassium 3.8 mmol/L (3.5-5.0)
[2017-01-16] MEDS: Heparin VIAL(*) 5000 UNITS/ML VIAL (FIVE THOUSAND) SUBCUT SCH ×2 (05:17→14:14)
--- NOTE | 2017-01-16 08:56 | RAD ---
Edited for charges. INDICATION: Chest pain. Obesity. Family history of heart disease. COMPARISON: January 09, 2009 TECHNIQUE: On January 16, 2017, 25.800 mCi of Tc-99m Myoview were administered IV. SPECT images of the heart were obtained. On January 15, 2017, under the direction of Dr. Patton, the patient was given an IV injection of a pharmacologic stress agent. Subsequently, the patient was given an IV injection of 25.890 mCi Tc-99m Myoview. SPECT images of the heart were obtained and a gated wall motion study was performed. FINDINGS: Gated wall motion images were obtained at stress and demonstrate global hypokinesia most marked at the septum. calculated left ventricular ejection fraction is 46 % at stress and 46 % at rest. Estimated LEFT ventricular end diastolic volume is 136 mL at rest and 152 mL at stress. TID 0.93. Obesity limits image quality. Based on review of the nonattenuation corrected and attenuation corrected series there is partial decreased perfusion at the anterior wall at the apical and mid segments at stress with reversal at rest concerning for ischemia. Small fixed perfusion defect at the apex. IMPRESSION: 1. Dilated LEFT ventricle with low-normal LEFT ventricular ejection fraction at stress and rest similar to the prior exam. 2. While obesity limits assessment there is suggestion of a moderate size region of potential stress-induced ischemia at the anterior wall grossly new compared with the prior exam. ASSESSMENT: Intermediate risk. Based on imaging criteria from ACC/AHA 2002 Guideline Update for the Management of Patients With Chronic Stable Angina Table 23. Noninvasive Risk Stratification. MTDD
[2017-01-16] MEDS: Nitrofurantoin Macrocrystals* 100 MG CAP PO SCH (09:00)
[2017-01-16] MEDS: Metoprolol Succinate XL TAB* 50 MG PO SCH (09:00)
[2017-01-16] MEDS: FLUoxetine CAP* 20 MG PO SCH (09:00)
[2017-01-16] MEDS: Lisinopril TAB* 5 MG PO SCH (09:00)
--- NOTE | 2017-01-16 13:17 | PN ---
Subjective Date of Service: 01/16/17 Interval History: Patient seen and examined at bedside. Pt states that she is feeling well and is anxious to get home. Denies fever, chills, shortness of breath, chest discomfort , N/V/D. Tele: Sinus rhythm, rate 60-70's. Family History: Unchanged from Admission Social History: Unchanged from Admission Past Medical History: Unchanged from Admission Objective Active Medications: Fluoxetine HCl (Prozac Cap*) 20 mg PO DAILY [facility] Heparin Sodium (Porcine) (Heparin Vial(*)) 5,000 units SUBCUT Q8HR BRIAN Lisinopril (Prinivil Tab*) 5 mg PO DAILY BRIAN Magnesium Hydroxide (Milk Of Magnesia Liq*) 30 ml PO Q6H PRN Reason: CONSTIPATION Metoprolol Succinate (Toprol Xl Tab*) 50 mg PO BID BRIAN Morphine Sulfate (Morphine Inj (Syringe)*) 2 mg IV Q4H PRN Reason: PAIN - MILD Nitrofurantoin Macrocrystals (Macrodantin*) 100 mg PO BID BRIAN Stop: 01/19/17 20 :59 Vital Signs 01/15/17 01/15/17 01/15/17 14:33 16:00 19:42 Temperature 97.3 F 97.9 F Pulse Rate 79 74 Respiratory 16 16 Rate Blood Pressure 116/69 117/65 (mmHg) O2 Sat by Pulse 94 96 91 Oximetry 01/15/17 01/16/17 01/16/17 20:00 00:05 03:47 Temperature 98.1 F 98.1 F Pulse Rate 75 72 Respiratory 16 22 22 Rate Blood Pressure 116/65 118/69 (mmHg) O2 Sat by Pulse 90 91 Oximetry 01/16/17 01/16/17 01/16/17 06:17 07:24 07:36 Temperature 97.9 F Pulse Rate 71 Respiratory 16 18 Rate Blood Pressure 132/82 (mmHg) O2 Sat by Pulse 92 92 92 Oximetry 01/16/17 01/16/17 09:33 11:00 Temperature 98.0 F Pulse Rate 74 Respiratory 16 Rate Blood Pressure 103/68 (mmHg) O2 Sat by Pulse 94 94 Oximetry Oxygen Devices in Use Now: None Appearance: NAD, sitting up in a chair Eyes: No Scleral Icterus, PERRLA Ears/Nose/Mouth/Throat: NL Teeth, Lips, Gums, Mucous Membranes Moist Neck: NL Appearance and Movements; NL JVP, Trachea Midline Respiratory: Symmetrical Chest Expansion and Respiratory Effort, Clear to Auscultation Cardiovascular: NL Sounds; No Murmurs; No JVD, RRR Abdominal: NL Sounds; No Tenderness; No Distention Extremities: No Edema Skin: No Rash or Ulcers Neurological: Alert and Oriented x 3, NL Muscle Strength and Tone Lines/Tubes/Other Access: Clean, Dry and Intact Peripheral IV - x 2, site benign Nutrition: Taking PO's Result Diagrams: 01/15/17 05:13 01/16/17 04:35 Assess/Plan/Problems-Billing Assessment: Ms. Peng is a 56 yo female with PMH significant for paroxysmal SVT, angina, HTN, developmental delay, nonischemic cardiomyopathy, HLD, and morbid obesity who presented to the emergency room with SVT after a syncopal epsiode. She was also found to have a UTI and questionable cholelithiasis. - Patient Problems (1) SVT (supraventricular tachycardia) Code(s): I47.1 - SUPRAVENTRICULAR TACHYCARDIA SNOMED Code(s): 9768967 Comment: - Resolved after receiving 2 doses of adenosine in the ED - Now in Sinus rhythm on tele, intermittent runs of VT, 01/13 - 22 beat of sustained Vtach which cards is most worried about. - Nuclear cardiac stress test, 2 day protocol. Intermediate risk stress test, will be seen by Cardiology later today - TSH 1.11 - Keep magneisum > 2, and potassium > 4 - Continue Toprol 50 mg BID (2) Elevated troponin Code(s): R74.8 - ABNORMAL LEVELS OF OTHER SERUM ENZYMES SNOMED Code(s): 573523606 Comment: - Peaked at 0.21 - Denies chest pain - Ischemic changes on EKG, but similar to previous EKG from 01/03/17 and 09/2015 - Echo shows mild to moderate concentric LVH, a focal wall motion abnormality, the proximal inferior low posterolateral wall more hypokinetic than other areas. EF 40-45% - Cardiology consult, appreciate input - Nuclear stress test, 2 day protocol. (3) Cholelithiasis Comment: - Cholelithiasis noted on CTA and GB ultrasound with a normal HIDA scan. - Appreciate surgery consult - no acute findings, no surgical intervention at this time, advance diet as tolerated - Unclear if RUQ pain is related to cholethiasis - per surgery team thinks this is unlikely. - Tolerating low fat diet (4) Electrolyte abnormality Code(s): E87.8 - OTH DISORDERS OF ELECTROLYTE AND FLUID BALANCE, NEC SNOMED Code(s): 669512311 Comment: - Potassium goal > 4. Will give replacement today - Magnesium Goal 2. Will check a magnesium in the AM (5) Syncope Code(s): R55 - SYNCOPE AND COLLAPSE SNOMED Code(s): 639745236 Comment: - Seems most likely due to combination of dehydration and rapid HR from arrythmia. - Continue to monitor on tele (6) UTI (urinary tract infection) Comment: - UCx with E Coli - Blood cultures, no growth day 5 - Continue Macrobid (7) Cardiomyopathy, nonischemic Code(s): I42.9 - CARDIOMYOPATHY, UNSPECIFIED SNOMED Code(s): 65427482 Comment: - TTE showing improvement LVEF 40-45% up from 30-35% 09/2015 - Metoprolol as above. Continue Lisinopril (8) HTN (hypertension) Code(s): I10 - ESSENTIAL (PRIMARY) HYPERTENSION SNOMED Code(s): 40972303 Comment: - Controlled, SBP 100-130's - Continue lisinopril. (9) DVT prophylaxis Code(s): XPN4742 - SNOMED Code(s): 980880654 Comment: - SQ heparin (10) Full code status Code(s): Z78.9 - OTHER SPECIFIED HEALTH STATUS SNOMED Code(s): 555701391 Status and Disposition: Inpatient. Pt presented to ED with SVT, found to have questionable cholelithiasis, elevated troponins, and UTI. Having runs of Vtach - plan for completion of cardiac stress test in am, if abnormal may need cardiac cath. Plan for discharge to home when medically stable.
[2017-01-16 15:44] VITALS: BP 109/61
--- NOTE | 2017-01-16 20:44 | CONS ---
DISCHARGE CARDIOLOGY CONSULTATION: DATE OF CONSULT: 01/16/17 DATE OF ADMISSION: 01/10/[address] Juan Magana's consultation for the patient's presentation. CHIEF COMPLAINT: Supraventricular tachycardia and ventricular tachycardia. HISTORY OF PRESENT ILLNESS: The patient is a 56-year-old female with a history of nonischemic cardiomyopathy, who was brought to the hospital for abdominal discomfort. She was found to be in supraventricular tachycardia at 206 beats per minute. The patient was given adenosine and converted to normal sinus rhythm. The patient was admitted to the hospital for observation. The patient did have a transthoracic echocardiogram, which showed an ejection fraction between 40% and 45%. No significant valvular abnormalities. During observation , the patient had runs of nonsustained ventricular tachycardia at 160 beats per minute. The patient underwent a chemical nuclear stress test, which was completed today. Her stress test showed no clear areas of ischemia. The patient had patchy uptake of tracer to her myocardial consistent with her nonischemic cardiomyopathy. Her ejection fraction was calculated at 42%. Her TID was within normal limits. PHYSICAL EXAM: On physical exam, heart rate and blood pressure were within normal limits. Carotids are 2+ without bruits. Cardiac Exam: S1, S2, without any murmurs, rubs, or gallops. Lungs are clear to auscultation. Extremities show no edema. IMPRESSION: This is a patient with a history of nonischemic cardiomyopathy. She had a cardiac catheterization in 2008, which showed normal coronary arteries. Her cardiac perfusion scan during her hospitalization showed no clear evidence of ischemia. She had mildly to moderately reduced LV systolic function. Given the presence of nonischemic cardiomyopathy and reduced LV systolic function, the recommendation is that the patient undergo a electrophysiology study for evaluation of her ventricular tachycardia. The patient will be discharged from the hospital on her usual beta-blockers and other medications. The patient will be seen by me in follow up in the next 1 to 2 weeks to setup an electrophysiology study. CC: Dr. Dada Becerra * [id number]/[facility] #: [id number] DRAGAN
--- NOTE | 2017-01-17 12:20 | DS ---
DISCHARGE SUMMARY: DATE OF ADMISSION: 01/10/2017. DATE OF DISCHARGE: 01/16/2017. ATTENDING PHYSICIAN: Dr. Joseph Delarosa* (dictated by Donna Bundy NP) PRIMARY CARE PROVIDER: Dr. Dada Becerra. PRIMARY DIAGNOSES: 1. Supraventricular tachycardia. 2. Elevated troponins. 3. Cholelithiasis. 4. Syncope. 5. Escherichia coli urinary tract infection. PAST MEDICAL HISTORY: 1. Hypertension. 2. Nonischemic cardiomyopathy. CONSULTATIONS WHILE IN THE HOSPITAL: Dr. Juan Magana and Dr. Terrance Trimble with Cardiology and Dr. Reyes with General Surgery. STUDIES WHILE IN THE HOSPITAL: 1. Brain CT on 01/10/17. Radiologist impression: Negative examination, unchanged from 01/03/17. 2. Chest, abdomen, and pelvis CTA, on 01/10/17. Radiologist impression: Limited examination due to the patient's size. No CT evidence of acute pulmonary embolic disease. Cholelithiasis. No index for suspicion of cystic entity within the pancreas as described. Consider followup imaging with pancreatic protocol in 3-6 months. A 8.5 cm right renal cyst. Hysterectomy. Low index of suspicion 7.0 cm cystic entity of left tomasa pelvis, perhaps a lymphocele. 3. Gallbladder ultrasound on 01/10/17. Radiologist impression: Cholelithiasis. Right renal cyst. 4. Transthoracic echocardiogram on 01/11/17. [employer] Casting Supervisor conclusion: Mild-to - moderate concentric left ventricular hypertrophy is observed. There is a focal wall motion abnormality present. The proximal inferior though posterior lateral wall appears more hypokinetic than other areas. There is mildly decreased left ventricular systolic function. The estimated ejection fraction is 40% to 45%. Visually estimated LVEF is closer to 45%. There is a physiologic tricuspid regurgitation. There is a trace pulmonic regurgitation. Compared to report study of 10/05/15, the LV systolic function is currently better (it was reported as LVEF of 30% to 35% on prior report). 5. Hepatobiliary scan - HIDA on 01/11/17. Radiologist impression: Normal hepatobiliary scan. 6. Chest x-ray on 01/13/17. Radiologist impression: Cardiomegaly with pulmonary vascular congestion. 7. Nuclear medicine myocardial multi resting stress test, on 01/15/17 and 01/16. Radiologist impression: Dilated left ventricle with low normal left ventricular ejection fraction at stress and rest similar to the prior exam. Her obesity limits assessment, there is suggestion of a moderate-sized region of potential stress-induced ischemia at the anterior wall grossly new compared with the prior examination. Assessment, intermediate risk. Die Casting Supervisor observation: Chest pain none, resting ECG abnormal ST changes none. V3 recording missing. Conclusion: Nondiagnostic Lexiscan study by EKG due to resting EKG abnormalities. Nuclear portion to be reportedly separately by Radiology. HISTORY OF PRESENT ILLNESS/HOSPITAL COURSE: Ms. Peng is a 56-year-old female with past medical history significant for angina, hypertension, developmental delay, nonischemic cardiomyopathy, hyperlipidemia, morbid obesity, who presented to the emergency room after syncopal episode at her primary care provider's office and was found to be in SVT. It is to note that the patient had previously been seen in the emergency room on 01/03/17 after a syncopal episode, at which time she had hit her head and had an unwitnessed episode of loss of consciousness. The patient had presented to the emergency room for that incident and had complaints of a headache and a scalp laceration. The patient had a 1 inch laceration that required melanie. She had a CT of the brain and C-spine with no abnormal findings and was discharged to home. The patient had presented to her primary care doctor's office for followup and to have her melanie removed. While walking into the doctor's office, the patient felt diaphoretic and warm. She took off her coat. According to the patient she had not felt as although she was going to pass out but her sister reports that she grabbed her arm saying "Oh no" prior to passing out. The patient denied any lightheadedness or dizziness. The patient had complained of continued headaches since her previous fall. The patient was also reporting chest discomfort, but was unable to describe this. After the patient's syncopal episode and found in SVT at the doctor's office, EMS was called, and the patient was brought to the emergency room for further evaluation. While in the emergency room, the patient had an EKG showing SVT with a rate of 206. The patient received 6 mg of IV adenosine and then an additional 12 mg of IV adenosine and the patient's heart rate slowed down to a sinus tach with a rate of 108. The patient had a head CT showing a negative examination, that was unchanged from the previous examination. The patient was also complaining of abdominal pain and had a CTA of her chest, abdomen, and pelvis. There was no evidence of pulmonary embolism, but chololithiasis was seen in addition to right renal cyst. The patient's heart rate on telemetry was in the 90s to 100s. Based on the patient's presentation, the hospitalists were asked to evaluate the patient for admission. While in the hospital, the patient's syncope was felt to be due to cardiogenic in nature due to the patient being in SVT. The patient also appeared to be slightly dehydrated. She was given IV hydration and her dehydration resolved. The patient continued to have intermittent short bursts of V-tach during her stay. She was seen in consultation by Dr Magana with Cardiology who recommended keeping her magnesium greater than 2 and her potassium greater than 2 and her metoprolol tartrate was adjusted to Toprol 50 mg twice daily. The patient then had some runs of sustained V-tach with 22 beats and Cardiology reevaluated the patient and it was decided to have her undergo nuclear cardiac stress test. The patient underwent a nuclear cardiac stress test, showing an intermediate risk and dilated left ventricle with low normal left ventricular ejection fraction at stress and rest similar to her previous exam. There was also assessment suggesting of a moderate- sized region of potential stress- induced ischemia at the anterior wall, grossly new compared with the previous exam and is read as an intermediate risk. The patient was reevaluated by Cardiology who felt that this was similar to her previous scans and we thought that the patient was able to be discharged today. It is to note that the patient also has had elevated troponins during her stay. Her troponins peaked at 0.21. The patient also had an echocardiogram showing [id number] concentric LVH with a focal wall motion abnormality and a small inferior low posterior lateral wall that was more hypokinetic than the other areas with an EF of 40% to 45%. As far as the patient's cholelithiasis, she was seen in consultation by General Surgery, it was unclear if the patient's right upper quadrant pain was related to cholelithiasis. The surgical team felt this was unlikely and the patient was able to tolerate a low-fat diet. She did have multiple imagings of her gallbladder including a gallbladder ultrasound and the HIDA scan but all appeared to be normal. The patient had some intermittent hypokalemia and hypomagnesia that was treated with electrolyte replacement during her stay. The patient was also found to have an E. coli UTI. She had blood cultures showing no growth. She was initially treated with ceftriaxone and changed over to Macrodantin to compete her course of antibiotics. As far as the patient's ischemic cardiomyopathy, she was continued on her metoprolol and lisinopril. For the patient's hypertension, her blood pressure is well controlled on her home regime. The patient has remained afebrile during her stay, her leukocytosis had initially resolved, and she was slightly elevated on January 15 with a 12.2 white blood cell count. The patient's triglycerides are slightly elevated at 183. The patient is going to be encouraged to eat a low-fat diet. Ms. Peng was stable for discharge to home today. Abena signs are as follows: Temperature 98.2, heart rate 69, respiratory rate 16, O2 sat 93% on room air, blood pressure 109/61. DISCHARGE PLAN: Ms. Peng will be discharged to home. Activity as tolerated. She should be on a low-fat heart-healthy diet. As far as the patient's cholelithiasis, I recommend monitoring this as outpatient and to continue her on low-fat diet. As far as the patient's SVT, I recommend monitoring her electrolytes outpatient keeping her magnesium around 2 and her potassium greater than 4. The patient has been switched from metoprolol tartrate to Toprol 50 mg twice daily. For the patient's urinary tract infection, she should be continued on Macrodantin for 7 more doses to complete her course of antibiotics. The patient should be seen in followup by her primary care provider. She has an appointment with Dr. Ankiet Yan on January 19 at 10:00 a.m. The patient should also be seen in followup with Dr. Terrance Trimble, and he has an appointment on January 30 at 1:00 p.m. At that time , Dr. Trimble will discuss with the patient being seen in followup with Cardiology in [place] for EP studies and possible ICD placement. The patient has been asked to return to the emergency room for any shortness of breath, chest discomfort, or if she passes out again. This is a summarized report of complex medical history and hospital stay. For further details, please see the entire medical record. TIME SPENT: Time for this discharge was 60 minutes, 30 minutes was spent face- to- face with the patient and sister discussing discharge plans and instructions. CONDITION ON DISCHARGE: Stable. Reviewed by BIB RYDER-Imani 01/23/17 1749 CC: Dr. Dada Becerra. * [id number]/[facility] #: [id number] MTDD
== END 2017-01-16 17:51 | disposition home or self-care (01) | DRG 690 ==
LOC: ED 14:41 → MEDTELE 18:19 → OBSVTOIN 01-11 11:05
PROVIDERS: ADMIT Internal Medicine; ATTEND Hospitalist
PROC: 3E0234Z Introduction of Serum, Toxoid and Vaccine into Muscle, Percutaneous Approach (ICD-10-PCS; principal; 2017-01-12)
DX: N39.0 Urinary tract infection, site not specified (principal); I47.2 Ventricular tachycardia; E87.2 Acidosis; I42.8 Other cardiomyopathies; K86.2 Cyst of pancreas; Q24.5 Malformation of coronary vessels; Z68.41 Body mass index [BMI] 40.0-44.9, adult; I47.1 Supraventricular tachycardia; E66.01 Morbid (severe) obesity due to excess calories; K80.20 Calculus of gallbladder without cholecystitis without obstruction; I10 Essential (primary) hypertension; Z90.710 Acquired absence of both cervix and uterus; Z87.891 Personal history of nicotine dependence; E78.5 Hyperlipidemia, unspecified; Z82.49 Family history of ischemic heart disease and other diseases of the circulatory system; Z83.3 Family history of diabetes mellitus; Z82.3 Family history of stroke; Z80.0 Family history of malignant neoplasm of digestive organs; N28.1 Cyst of kidney, acquired; R55 Syncope and collapse; D72.829 Elevated white blood cell count, unspecified; F81.9 Developmental disorder of scholastic skills, unspecified; E87.6 Hypokalemia; E86.0 Dehydration; Z23 Encounter for immunization; Z98.61 Coronary angioplasty status; B96.20 Unspecified Escherichia coli [E. coli] as the cause of diseases classified elsewhere; I07.1 Rheumatic tricuspid insufficiency; I37.1 Nonrheumatic pulmonary valve insufficiency; E83.42 Hypomagnesemia; I25.5 Ischemic cardiomyopathy
CPT/HCPCS: 36415; 70450; 71020; 71275; 74177; 76705; 78226; 78452; 80048; 80053; 80061; 81003; 81015; 83605; 83690; 83735; 84443; 84484; 85025; 87040; 87077; 87086; 87186; 90686; 93005; 93017; 93306; 94760; A9270-GY; A9502; A9537; G0378; J0696; J1644; J1940; J2270; J2785; J3480; Q9967

== ENCOUNTER 2018-03-28 10:39 | Emergency (ER) | payer MEDICARE, MEDICAID ==
[2018-03-28 10:47] VITALS: BP 129/81
== END 2018-03-28 12:22 | disposition left against medical advice (07) ==
LOC: ED 10:39
DX: R10.9 Unspecified abdominal pain (principal); Z53.21 Procedure and treatment not carried out due to patient leaving prior to being seen by health care provider
CPT/HCPCS: 99281

== ENCOUNTER 2018-04-10 13:07 | Emergency (ER) | payer MEDICARE, MEDICAID ==
[2018-04-10 13:24] VITALS: BP 128/76
--- NOTE | 2018-04-10 13:56 | UC ---
Brian Atwood Gabriel, scribed for Aston Bernal MD on 04/10/18 at 1329 . Abdominal Pain Female HPI - HPI Summary HPI Summary: This patient is a 57 year old F presenting to [facility] [place] by her family with a chief complaint of left sided ABD pain that began a over week ago. The pt went to the ED a week ago but left after 3 hours of waiting. While there a nurse suggested it may be due to constipation so the pt has been taking OTC stool softener. She has been having regular BMs with no relief. The patient rates the pain 7/10 in severity. Patient denies diarrhea, constipation, urinary symptoms, vomiting, and nausea. - History of Current Complaint Chief Complaint: UCGI Stated Complaint: SIDE PAIN Time Seen by Provider: 04/10/18 13:12 Hx Obtained From: Patient Hx Last Menstrual Period: hysterectomy age 15 Onset/Duration: Still Present Severity Initially: Moderate Severity Currently: Moderate Pain Intensity: 7 Pain Scale Used: 0-10 Numeric Location: Discrete At: LUQ, Discrete At: LLQ Radiates: No Associated Signs and Symptoms: Negative: Nausea, Vomiting, Diarrhea Allergies/Adverse Reactions: Allergies Allergy/AdvReac Type Severity Reaction Status Date / Time No Known Allergies Allergy Verified 04/10/18 13:24 PMH/Surg Hx/FS Hx/Imm Hx Neurological History: Other Other Neurological History: MR Other History Of: Negative For: Hepatitis B, Hepatitis C, Anticoagulant Therapy - Surgical History Surgical History: Yes Surgery Procedure, Year, and Place: [facility] HYSTERECTOMY [facility]. 12/23/13 RIGHT BREAST [facility] - Family History Known Family History: Positive: Other - Breast CA, anesthesia rxn Negative: Diabetes, Respiratory Disease, Seizure Disorder - Social History Alcohol Use: None Substance Use Type: None Smoking Status (MU): Former Smoker Type: Cigarettes Amount Used/How Often: 15 years Length of Time of Smoking/Using Tobacco: 4-5 YRS Have You Smoked in the Last Year: No When Did the Patient Quit Smoking/Using Tobacco: - Immunization History Most Recent Influenza Vaccination: none Most Recent Tetanus Shot: 2011 Most Recent Pneumonia Vaccination: 2011 Review of Systems Constitutional: Negative - fever Gastrointestinal: Abdominal Pain Genitourinary: Negative All Other Systems Reviewed And Are Negative: Yes Physical Exam - Summary Physical Exam Summary: VITAL SIGNS: Reviewed. GENERAL: Patient is a well-developed and nourished female who is lying comfortable in the stretcher. Patient is not in any acute respiratory distress. Mentally challenged female who is unable to give a good history so it was dictated by the family HEAD AND FACE: Normocephalic EYES: PERRLA, EOMI x 2. EARS: Hearing grossly intact. MOUTH: Oropharynx within normal limits. NECK: Supple, trachea is midline, no adenopathy, no JVD, no carotid bruit. CHEST: Symmetric, no tenderness at palpation LUNGS: Clear to auscultation bilaterally. No wheezing or crackles. CVS: Regular rate and rhythm, S1 and S2 present, no murmurs or gallops appreciated. ABDOMEN: Soft, LLQ and LUQ pain, Bowel sounds are normal. No abdominal abnormal pulsations. No rebound or guarding EXTREMITIES: Full ROM in all major joints, no edema, no cyanosis or clubbing. NEURO: Alert and oriented x 3. No acute neurological deficits. Speech is normal and follows commands. SKIN: Dry and warm Triage Information Reviewed: Yes Vital Signs: Initial Vital Signs Temp 97.7 F 04/10/18 13:15 Pulse 74 04/10/18 13:15 Resp 15 04/10/18 13:15 BP 128/76 04/10/18 13:15 Pulse Ox 93 04/10/18 13:15 Vital Signs Reviewed: Yes Abd Pain Female Course/Dx - Course Course Of Treatment: Patient is a mentally challenged female who presents in the urgent care complaining of abdominal pain. Symptoms have been present for more than a week. She denies any nausea vomiting, diarrhea or constipation. The patient is a poor historian and most of the history is obtained from sisters. In the physical exam reveals left-sided abdominal pain worsened left upper quadrant and left lower quadrant. Because of the symptoms and a poor historian the patient was recommended to go to the ER for further workup and assessment. The patient and the patient's sisters agree. They declined ambulance transport. Sisters will transfer the patient to the emergency department. The patient is hemodynamically stable she is alert. - Differential Dx/Diagnosis Provider Diagnoses: ABDOMINAL PAIN Discharge - Sign-Out/Discharge Documenting (check all that apply): Discharge/Admit/Transfer - Discharge Plan Condition: Stable Disposition: HOME Patient Education Materials: Acute Abdominal Pain (DC) Referrals: Dada Becerra MD [Primary Care Provider] - Additional Instructions: The patient will be discharged to the emergency department for further workup and management. The patient's sisters and the patient declined ambulance transport. - Billing Disposition and Condition Condition: STABLE Disposition: HOME The documentation as recorded by the Brian gentile Gabriel accurately reflects the service I personally performed and the decisions made by , Aston Bernal MD.
== END 2018-04-10 13:50 | disposition home or self-care (01) ==
LOC: UCEAST 13:07
DX: R10.12 Left upper quadrant pain (principal); R10.32 Left lower quadrant pain; Z87.891 Personal history of nicotine dependence
CPT/HCPCS: 99212; G0463

== ENCOUNTER 2018-04-10 14:04 | Emergency (ER) | payer MEDICARE, MEDICAID ==
[2018-04-10] MEDS ORDERED: NS 0.9% 1000 ML* 1,000 ML IV ONE (16:23)
[2018-04-10 17:15] LABS: ABS Basophils 0.1 10^3/ul (0-0.2); ABS Eosinophils 0.1 10^3/ul (0-0.6); ABS Lymphocytes 3.2 10^3/ul (1.0-4.8); ABS Monocytes 0.7 10^3/ul (0-0.8); ABS Neutrophils 8.5 10^3/ul (1.5-7.7); ABS Nucleated RBC 0 10^3/ul; Eosinophil % 0.6 % (0-6); Hematocrit 45 % (35-47); Hemoglobin 14.8 g/dl (12.0-16.0); Lymphocyte % 25.3 % (25-47); Mean Corpuscular HGB Conc 33 g/dl (31-36); Mean Corpuscular Hemoglobin 29 pg (27-31); Mean Corpuscular Volume 88 fL (80-97); Mean Platelet Volume 7.6 um3 (7.4-10.4); Nucleated Red Blood Cells % 0; Platelet Count 192 10^3/ul (150-450); Red Blood Count 5.06 10^6/ul (4.0-5.4); Red Cell Distribution Width 14 % (10.5-15); White Blood Count 12.5 10^3/ul (3.5-10.8)
[2018-04-10 17:28] LABS: INR 0.94 (0.77-1.02)
[2018-04-10 17:31] LABS: EGFR Non-African American 72.4 (>60)
[2018-04-10] MEDS ORDERED: Iohexol 300* (CONTRAST) 10 ML SDV IV ONE (17:51)
[2018-04-10 19:10] LABS: Urine Appearance Cloudy; Urine Blood 1+ (Negative); Urine Color Yellow; Urine Ketones Negative (Negative); Urine Protein Negative (Negative); Urine Specific Gravity 1.002 (1.010-1.030); Urine Urobilinogen Negative (Negative)
--- NOTE | 2018-04-10 19:12 | RAD ---
INDICATION: Cholelithiasis COMPARISON: CT chest/abdomen/pelvis January 10, 2017 TECHNIQUE: Noncontrast axial source images were acquired from the level hemidiaphragms to the symphysis pubis as part of CT imaging for renal stone. Lung bases: The lung bases are clear. The heart is enlarged Liver: The liver is normal in size. Noncontrast imaging shows no evidence of a hepatic mass or ductal dilatation. Gallbladder: There are multiple calcified gallstones. Spleen: The spleen is normal in size. The noncontrast CT appearance is normal. Pancreas: Noncontrast imaging shows no pancreatic mass or ductal dilitation. Adrenal glands: No masses are identified. Kidneys/Bladder: There is a dominant 8 cm right renal cyst, unchanged. There is nonobstructive lower pole left-sided nephrolithiasis. Adenopathy: There is no evidence of intraperitoneal or retroperitoneal adenopathy. Evaluation is limited without oral contrast. Fluid collections: There are no free or localized fluid collections. Vessels: There are atherosclerotic changes of the aorta and iliac vessels. There is no focal aneurysm. The IVC appears normal Pelvic organs: Hysterectomy. There is a 8.1 cm left adnexal cyst appearing unchanged GI tract: Evaluation of the bowel is limited without oral contrast. The upper GI tract is unremarkable. There are moderate diverticula throughout the sigmoid colon. There is mild bowel wall thickening and subtle perienteric stranding suggesting mild diverticulitis. Soft tissues: No soft tissue abnormalities of the extraperitoneal abdomen or pelvis are identified. Osseous structures: There is a new compression deformity of T12.. Level spondylitic change of the lumbar spine. IMPRESSION: 1. Cholelithiasis 2. 8 cm right renal cysts. Nonobstructive left-sided left nephrolithiasis. 3. Hysterectomy. 4. Stable 8.1 cm left adnexal cyst. This may represent lymphocele. 5. Sigmoid diverticula with suspected mild diverticulitis. 6. New T12 compression deformity
--- NOTE | 2018-04-10 19:56 | ED ---
Mitch Atwood Jennifer, scribed for Heron Armstrong MD on 04/10/18 at 1622 . Abdominal Pain/Female - HPI Summary HPI Summary: The patient is a 57 y/o F who was sent from with left-sided intermittent abdominal pain since one week ago. The patients sister reports they were here one week ago but LWBS due to the long wait. The patient denies problems with urination and bowel movement. - History of Current Complaint Chief Complaint: EDAbdPain Stated Complaint: SIDE PAIN Time Seen by Provider: 04/10/18 16:14 Hx Obtained From: Family/Computer Designer - 2 SISTERS Hx From Patient Unobtainable Due To: Other - Intellectual disability Hx Last Menstrual Period: hysterectomy age 15 Onset/Duration: Sudden Onset, Lasting Weeks - one week, Still Present, Worse Since Timing: Constant - constant but ranges in intensity Severity Initially: Moderate Severity Currently: Moderate Pain Intensity: 0 Pain Scale Used: 0-10 Numeric Location: Discrete At: LUQ Radiates: No Associated Signs and Symptoms: Positive: Other: - NEGATIVE: problems with urination, bowel movement Allergies/Adverse Reactions: Allergies Allergy/AdvReac Type Severity Reaction Status Date / Time No Known Allergies Allergy Verified 04/10/18 14:12 PMH/Surg Hx/FS Hx/Imm Hx Endocrine/Hematology History: Denies: Hx Anticoagulant Therapy, Hx Blood Disorders, Hx Blood Transfusions, Hx Bone Marrow Disease, Hx Diabetes, Hx Systemic Lupus Erythematosus, Hx Sickle Cell Disease, Hx Thyroid Disease, Hx Anemia, Hx Unexplained Bleeding, Other Endocrine/Hematological Disorders Cardiovascular History: Reports: Hx Hypertension - ON DAILY MEDS Denies: Hx Aneurysm, Hx Angina, Hx Angioplasty, Hx Auto Implanted Cardiovert Defib, Hx Cardiac Arrest, Hx Cardiomegaly, Hx Congenital Heart Disease, Hx Congestive Heart Failure, Hx Coronary Artery Disease, Hx Deep Vein Thrombosis, Hx Embolism, Hx Hypercholesterolemia, Hx Hypotension, Hx Myocardial Infarction, Hx Pacemaker/ICD, Hx Peripheral Vascular Disease, Hx Rheumatic Fever, Hx Syncope , Hx Valvular Heart Disease, Other Cardiovascular Problems/Disorders Respiratory History: Denies: Hx Asthma, Hx Chronic Bronchitis, Hx Chronic Obstructive Pulmonary Disease (COPD), Hx Cystic Fibrosis, Hx Lung Cancer, Hx Pleural Effusion, Hx Pneumonia, Hx Pulmonary Edema, Hx Pulmonary Embolism, Hx Seasonal Allergies, Hx Sleep Apnea, Other Respiratory Problems/Disorders GI History: Reports: Hx Gastroesophageal Reflux Disease Denies: Hx Cirrhosis, Hx Crohn's Disease, Hx Diverticulosis, Hx Gall Bladder Disease, Hx Gastrointestinal Bleed, Hx Hiatal Hernia, Hx Irritable Bowel, Hx Jaundice, Hx Obstructive Bowel, Hx Ileostomy, Hx Pyloric Stenosis, Hx Ulcer, Other GI Disorders History: Reports: Other Problems/Disorders - HX OF UTI'S, LAST 3-4 YRS AGO Denies: Hx Renal Disease Musculoskeletal History: Denies: Hx Arthritis, Hx Back Problems, Hx Bursitis, Hx Congenital Bone Abnormalities, Hx Fibromyalgia, Hx Gout, Hx Orthopedic Injury, Hx Osteoporosis, Hx Scoliosis, Hx Tendonitis, Other Musculoskeletal History Sensory History: Reports: Hx Contacts or Glasses Denies: Hx Cataracts, Hx Eye Injury, Hx Eye Prosthesis, Hx Glaucoma, Hx Legally Blind, Hx Macular Degeneration, Hx Vision Problem, Hx Deafness, Hx Hearing Aid, Hx Hearing Problem, Other Sensory Impairments Opthamlomology History: Reports: Hx Contacts or Glasses Denies: Hx Cataracts, Hx Eye Injury, Hx Eye Prosthesis, Hx Glaucoma, Hx Legally Blind, Hx Macular Degeneration, Hx Vision Problem, Other Sensory Impairments Neurological History: Reports: Hx Developmental Delay Denies: Hx Dementia, Hx Headaches, Hx Migraine, Hx Nerve Disease, Hx Seizures , Hx Spinal Cord Injury, Hx Transient Ischemic Attacks (TIA), Other Neuro Impairments/Disorders Psychiatric History: Reports: Hx Community Mental Health Tx Denies: Hx Anxiety, Hx Attention Deficit Hyperactivity Disorder, Hx Eating Disorder, Hx Depression, Hx Panic Disorder, Hx Post Traumatic Stress Disorder, Hx Inpatient Treatment, Hx Schizophrenia, Hx Bipolar Disorder, Hx Suicide Attempt, Hx of Violent Episodes Against Others, Hx Substance Abuse, Other Psychiatric Issues/Disorders - Surgical History Surgery Procedure, Year, and Place: 1970s HYSTERECTOMY [facility]. 12/23/13 RIGHT BREAST [facility] Hx Anesthesia Reactions: No - Immunization History Date of Tetanus Vaccine: 7-10 years ago Infectious Disease History: No Infectious Disease History: Denies: Hx Clostridium Difficile, Hx Hepatitis, Hx Human Immunodeficiency Virus (HIV), Hx of Known/Suspected MRSA, Hx Shingles, Hx Tuberculosis, Hx Known/ Suspected VRE, Hx Known/Suspected VRSA, History Other Infectious Disease, Traveled Outside the [place] in Last 30 Days - Family History Known Family History: Positive: Other - Breast CA, anesthesia rxn Negative: Diabetes, Respiratory Disease, Seizure Disorder - Social History Alcohol Use: None Hx Substance Use: No Substance Use Type: Reports: None Hx Tobacco Use: Yes Smoking Status (MU): Former Smoker Type: Cigarettes Amount Used/How Often: 15 years Length of Time of Smoking/Using Tobacco: 4-5 YRS Have You Smoked in the Last Year: No Review of Systems Positive: Abdominal Pain. Negative: Diarrhea Negative: dysuria, frequency, hematuria, incontinence All Other Systems Reviewed And Are Negative: Yes Physical Exam - Summary Physical Exam Summary: General: well-appearing, no pain distress Skin: warm, color reflects adequate perfusion, dry Head: normal Eyes: EOMI, YANCY ENT: normal Neck: supple, nontender Respiratory: CTA, breath sounds present Cardiovascular: RRR Abdomen: soft, tender on left side of abdomen Bowel: positive bowel sounds Musculoskeletal: normal, strength/ROM intact Neurological: sensory/motor intact, A&O x3 Psychological: affect/mood appropriate Triage Information Reviewed: Yes Vital Signs On Initial Exam: Initial Vitals Temp Pulse Resp BP Pulse Ox 97.4 F 72 16 121/74 94 04/10/18 14:12 04/10/18 14:12 04/10/18 14:12 04/10/18 14:12 04/10/18 14:12 Vital Signs Reviewed: Yes Diagnostics - Vital Signs Vital Signs Temp Pulse Resp BP Pulse Ox 04/10/18 14:12 97.4 F 72 16 121/74 94 - Laboratory Lab Results: Lab Results 04/10/18 04/10/18 04/10/18 Range/Units 17:00 17:00 17:01 WBC 12.5 H (3.5-10.8) 10^3/ul RBC 5.06 (4.0-5.4) 10^6/ul Hgb 14.8 (12.0-16.0) g/dl Hct 45 (35-47) % MCV 88 (80-97) fL MCH 29 (27-31) pg MCHC 33 (31-36) g/dl RDW 14 (10.5-15) % Plt Count 192 (150-450) 10^3/ul MPV 7.6 (7.4-10.4) um3 Neut % (Auto) 68.1 (38-83) % Lymph % (Auto) 25.3 (25-47) % [place] % (Auto) 5.3 (0-7) % Eos % (Auto) 0.6 (0-6) % Baso % (Auto) 0.7 (0-2) % Absolute Neuts (auto) 8.5 H (1.5-7.7) 10^3/ul Absolute Lymphs (auto) 3.2 (1.0-4.8) 10^3/ul Absolute Monos (auto) 0.7 (0-0.8) 10^3/ul Absolute Eos (auto) 0.1 (0-0.6) 10^3/ul Absolute Basos (auto) 0.1 (0-0.2) 10^3/ul Absolute Nucleated RBC 0 10^3/ul Nucleated RBC % 0 INR (Anticoag Therapy) 0.94 (0.77-1.02) APTT 34.4 (26.0-36.3) seconds Sodium 139 (139-145) mmol/L Potassium 3.8 (3.5-5.0) mmol/L Chloride 102 (101-111) mmol/L Carbon Dioxide 29 (22-32) mmol/L Anion Gap 8 (2-11) mmol/L BUN 17 (6-24) mg/dL Creatinine 0.81 (0.51-0.95) mg/dL Est GFR ( Amer) 93.1 (>60) Est GFR (Non-Af Amer) 72.4 (>60) BUN/Creatinine Ratio 21.0 H (8-20) Glucose 108 H (70-100) mg/dL Lactic Acid (0.5-2.0) mmol/L Calcium 9.9 (8.6-10.3) mg/dL Total Bilirubin 0.40 (0.2-1.0) mg/dL AST 12 L (13-39) U/L ALT 7 (7-52) U/L Alkaline Phosphatase 89 (34-104) U/L C-Reactive Protein 2.16 (< 5.00) mg/L Total Protein 7.9 (6.4-8.9) g/dL Albumin 4.0 (3.2-5.2) g/dL Globulin 3.9 (2-4) g/dL Albumin/Globulin Ratio 1.0 (1-3) Lipase 24 (11.0-82.0) U/L Urine Color Urine Appearance Urine pH (5-9) Ur Specific [place] (1.010-1.030) Urine Protein (Negative) Urine Ketones (Negative) Urine Blood (Negative) Urine Nitrate (Negative) Urine Bilirubin (Negative) Urine Urobilinogen (Negative) Ur Leukocyte Esterase (Negative) Urine WBC (Auto) (Absent) Urine RBC (Auto) (Absent) Ur Squamous Epith Cells (Absent) Urine Bacteria (Absent) Urine Glucose (Negative) 04/10/18 04/10/18 Range/Units 17:01 18:58 WBC (3.5-10.8) 10^3/ul RBC (4.0-5.4) 10^6/ul Hgb (12.0-16.0) g/dl Hct (35-47) % MCV (80-97) fL MCH (27-31) pg MCHC (31-36) g/dl RDW (10.5-15) % Plt Count (150-450) 10^3/ul MPV (7.4-10.4) um3 Neut % (Auto) (38-83) % Lymph % (Auto) (25-47) % [place] % (Auto) (0-7) % Eos % (Auto) (0-6) % Baso % (Auto) (0-2) % Absolute Neuts (auto) (1.5-7.7) 10^3/ul Absolute Lymphs (auto) (1.0-4.8) 10^3/ul Absolute Monos (auto) (0-0.8) 10^3/ul Absolute Eos (auto) (0-0.6) 10^3/ul Absolute Basos (auto) (0-0.2) 10^3/ul Absolute Nucleated RBC 10^3/ul Nucleated RBC % INR (Anticoag Therapy) (0.77-1.02) APTT (26.0-36.3) seconds Sodium (139-145) mmol/L Potassium (3.5-5.0) mmol/L Chloride (101-111) mmol/L Carbon Dioxide (22-32) mmol/L Anion Gap (2-11) mmol/L BUN (6-24) mg/dL Creatinine (0.51-0.95) mg/dL Est GFR ( Amer) (>60) Est GFR (Non-Af Amer) (>60) BUN/Creatinine Ratio (8-20) Glucose (70-100) mg/dL Lactic Acid 0.5 (0.5-2.0) mmol/L Calcium (8.6-10.3) mg/dL Total Bilirubin (0.2-1.0) mg/dL AST (13-39) U/L ALT (7-52) U/L Alkaline Phosphatase (34-104) U/L C-Reactive Protein (< 5.00) mg/L Total Protein (6.4-8.9) g/dL Albumin (3.2-5.2) g/dL Globulin (2-4) g/dL Albumin/Globulin Ratio (1-3) Lipase (11.0-82.0) U/L Urine Color Yellow Urine Appearance Cloudy Urine pH 7.0 (5-9) Ur Specific [place] 1.002 L (1.010-1.030) Urine Protein Negative (Negative) Urine Ketones Negative (Negative) Urine Blood 1+ A (Negative) Urine Nitrate Negative (Negative) Urine Bilirubin Negative (Negative) Urine Urobilinogen Negative (Negative) Ur Leukocyte Esterase 1+ A (Negative) Urine WBC (Auto) Trace(0-5/hpf) (Absent) Urine RBC (Auto) 1+(3-5/hpf) A (Absent) Ur Squamous Epith Cells Present A (Absent) Urine Bacteria 1+ A (Absent) Urine Glucose Negative (Negative) Result Diagrams: 04/10/18 17:01 04/10/18 17:00 Lab Statement: Any lab studies that have been ordered have been reviewed, and results considered in the medical decision making process. - CT CT Abd/Pel CT Interpretation: Positive (See Comments) - 1. Cholelithiasis 2. 8 cm right renal cysts. Nonobstructive left-sided left nephrolithiasis. 3. Hysterectomy. 4. Stable 8.1 cm left adnexal cyst. This may represent lymphocele. 5. Sigmoid diverticula with suspected mild diverticulitis. 6. New T12 compression deformity. Dr. Armstrong has reviewed this report. CT Interpretation Completed By: Radiologist Abdominal Pain Fem Course/Dx - Course Course Of Treatment: DISCUSSED RESULTS WITH THE PATIENT AND HER FAMILY. DISCUSSED IV VERSES PO ABX. AT THIS TIME, PATIENT PREFERS PO ABX AND GOING HOME. F/U PMD; RETURN IF WORSE. - Diagnoses Provider Diagnoses: Diverticulitis, Left sided abdominal pain Discharge - Sign-Out/Discharge Documenting (check all that apply): Discharge/Admit/Transfer - Discharge Plan Condition: Stable Disposition: HOME Prescriptions: Ciprofloxacin TAB* [Cipro 500 MG TAB*] 500 mg PO BID #20 tab metroNIDAZOLE [Flagyl 500 MG TAB] 500 mg PO TID #30 tab Patient Education Materials: Diverticulitis (ED), Acute Abdominal Pain (ED) Referrals: Dada Becerra MD [Primary Care Provider] - Additional Instructions: FOLLOW UP WITH YOUR DOCTOR. RETURN TO THE EMERGENCY DEPARTMENT FOR ANY WORSENING OF YOUR CONDITION; PAIN, FEVER, YOU FEEL ILL OR QUESTIONS OR CONCERNS. - Billing Disposition and Condition Condition: STABLE Disposition: HOME The documentation as recorded by the Mitch gentile Jennifer accurately reflects the service I personally performed and the decisions made by me, Heron Armstrong MD.
[2018-04-10 20:32] VITALS: BP 144/88
== END 2018-04-10 20:31 | disposition home or self-care (01) ==
LOC: ED 14:04
DX: K57.32 Diverticulitis of large intestine without perforation or abscess without bleeding (principal); K80.20 Calculus of gallbladder without cholecystitis without obstruction; N28.1 Cyst of kidney, acquired; N20.0 Calculus of kidney; N85.8 Other specified noninflammatory disorders of uterus; I10 Essential (primary) hypertension; K21.9 Gastro-esophageal reflux disease without esophagitis; Z87.440 Personal history of urinary (tract) infections; Z90.710 Acquired absence of both cervix and uterus; Z87.891 Personal history of nicotine dependence; R10.12 Left upper quadrant pain; R10.32 Left lower quadrant pain
CPT/HCPCS: 36415; 74176; 80053; 81003; 81015; 83605; 83690; 85025; 85610; 85730; 86140; 87077; 87086; 87186; 96360; 96361; 99282

== ENCOUNTER 2018-07-09 10:32 | Emergency (ER) | payer MEDICARE, MEDICAID ==
[2018-07-09 10:45] VITALS: BP 144/88
[2018-07-09] MEDS ORDERED: Ibuprofen TAB* 600 MG PO ONE (11:40)
--- NOTE | 2018-07-09 12:14 | RAD ---
HISTORY: PUNCHED TABLE. PAIN, BRUISED OVER 3RD/4TH METACARP COMPARISONS: September 29, 2014 VIEWS: 4, Frontal, lateral, and oblique views of the right hand FINDINGS: BONE DENSITY: There is diffuse osteopenia. BONES: There is no displaced fracture. JOINTS: There is mild osteoarthritis of the interphalangeal joints and first MCP joint. ALIGNMENT: There is no dislocation. SOFT TISSUES: Unremarkable. OTHER FINDINGS: None. IMPRESSION: 1. OSTEOPENIA. 2. OSTEOARTHRITIS. 3. NO ACUTE OSSEOUS INJURY. IF SYMPTOMS PERSIST, RECOMMEND REPEAT IMAGING.
--- NOTE | 2018-07-09 12:41 | UC ---
Hand/Wrist HPI - HPI Summary HPI Summary: Punched a wooden table with her right hand out of anger 3 days ago. Has persistent pain and swelling and bruising. No numbness or tingling. - History Of Current Complaint Chief Complaint: UCUpperExtremity Stated Complaint: HAND INJURY Time Seen by Provider: 07/09/18 11:40 Hx Obtained From: Patient Hx Last Menstrual Period: hysterectomy age 15 Onset/Duration: Sudden Onset, Lasting Days, Still Present Severity Initially: Moderate Severity Currently: Moderate Pain Intensity: 7 Pain Scale Used: 0-10 Numeric Character Of Pain: Aching Aggravating Factor(s): Movement Alleviating Factor(s): Nothing Associated Signs And Symptoms: Positive: Swelling, Bruising Related History: Dominant Hand Right - Allergies/Home Medications Allergies/Adverse Reactions: Allergies Allergy/AdvReac Type Severity Reaction Status Date / Time No Known Allergies Allergy Verified 07/09/18 12:11 PMH/Surg Hx/FS Hx/Imm Hx Cardiovascular History: Hypertension Other History Of: Negative For: Hepatitis B, Hepatitis C, Anticoagulant Therapy - Surgical History Surgical History: Yes Surgery Procedure, Year, and Place: 1970s [facility]. 12/23/13 RIGHT BREAST [facility] - Family History Known Family History: Positive: Hypertension, Other - Breast CA, anesthesia rxn Negative: Diabetes, Respiratory Disease, Seizure Disorder - Social History Alcohol Use: None Substance Use Type: None Smoking Status (MU): Former Smoker Type: Cigarettes Amount Used/How Often: 15 years Length of Time of Smoking/Using Tobacco: 4-5 YRS Have You Smoked in the Last Year: No When Did the Patient Quit Smoking/Using Tobacco: - Immunization History Most Recent Influenza Vaccination: none Most Recent Tetanus Shot: 2011 Most Recent Pneumonia Vaccination: 2011 Review of Systems Constitutional: Negative Skin: Bruising Respiratory: Negative Cardiovascular: Negative Gastrointestinal: Negative Musculoskeletal: Arthralgia, Decreased ROM, Edema All Other Systems Reviewed And Are Negative: Yes Physical Exam Triage Information Reviewed: Yes Appearance: Well-Appearing, No Pain Distress, Well-Nourished Vital Signs: Initial Vital Signs Temp 98 F 07/09/18 10:42 Pulse 81 07/09/18 10:42 Resp 20 07/09/18 10:42 BP 144/88 07/09/18 10:42 Pulse Ox 98 07/09/18 10:42 Vital Signs Reviewed: Yes Eyes: Positive: Conjunctiva Clear ENT: Positive: Hearing grossly normal Neck: Positive: Supple Respiratory: Positive: No respiratory distress, No accessory muscle use Cardiovascular: Positive: Pulses Normal Abdomen Description: Positive: Soft Musculoskeletal: Positive: ROM Limited @ - RIGHT HAND, Edema @ - RIGHT HAND OVERLYING 3RD AND 4TH METACARPALS, Other: - TTP 3RD, 4TH METACARPALS AND MCP JOINTS RIGHT HAND Neurological: Positive: Alert Psychological: Positive: Age Appropriate Behavior Skin: Positive: Other - BRUISING OVERLYING 3RD, 4TH METACARPALS AND MCP JOINTS RIGHT HAND. Negative: rashes Diagnostics - Radiology RIGHT HAND XRAY Xray Interpretation: No Acute Changes Radiology Interpretation Completed By: Radiologist Hand/Wrist Course/Dx - Differential Dx/Diagnosis Provider Diagnoses: RIGHT HAND CONTUSION Discharge - Sign-Out/Discharge Documenting (check all that apply): Patient Departure - Discharge Plan Condition: Stable Disposition: HOME Patient Education Materials: Contusion in Adults (ED) Referrals: Era Cross MD [Medical Doctor] - If Needed Dada Becerra MD [Primary Care Provider] - If Needed Additional Instructions: XRAY TODAY NEGATIVE FOR FRACTURE OR DISLOCATION. YOUR SYMPTOMS SHOULD IMPROVE SIGNIFICANTLY OVER THE NEXT 1-2 WEEKS. IF YOU DO NOT IMPROVE EXPECTED FOLLOW- UP WITH YOUR PCP OR ORTHO. YOU MAY BENEFIT FROM REPEAT IMAGING AT THAT TIME. OTC IBUPROFEN OR ALEVE NEEDED FOR DISCOMFORT. REST, ICE, COMPRESS, ELEVATE. LINDEN WRAP FOR SYMPTOM RELIEF. - Billing Disposition and Condition Condition: STABLE Disposition: Home
== END 2018-07-09 12:45 | disposition home or self-care (01) ==
LOC: UCEAST 10:32
DX: S60.221A Contusion of right hand, initial encounter (principal); W22.03XA Walked into furniture, initial encounter; Y93.9 Activity, unspecified; Y92.9 Unspecified place or not applicable; M19.041 Primary osteoarthritis, right hand; M85.841 Other specified disorders of bone density and structure, right hand; Z87.891 Personal history of nicotine dependence
CPT/HCPCS: 99212; A9270-GY; G0463

== ENCOUNTER 2019-07-08 08:08 | Day surgery (SDC) | payer MEDICARE, MEDICAID ==
[~2019-07-08 08:08] MED LIST: Acetaminophen TAB* 325 MG PO PRN; Buffered Lidocaine 1% SYRIN* 1 ML/SYRINGE INTRADERM ONE
[2019-07-08] MEDS ORDERED: fentaNYL* 50 MCG/ML 2 ML VIAL (100 MCG VIAL) ONE (08:49)
[2019-07-08] MEDS ORDERED: Midazolam* 1 MG/ML 5 ML VIAL (5 MG) ONE (08:50)
[2019-07-08] MEDS ORDERED: Trypan Blue 0.06% SOL* 0.5 ML BTL ONE ×2 (09:09→09:43)
[2019-07-08] MEDS ORDERED: Tetracaine 0.5% OPTH.SOL 4 ML* 1 DROP BTL ONE (09:10)
[2019-07-08] MEDS ORDERED: Neomycin/Polymy/Dex OPHTH.OIN* 3.5 GM ONE (09:10)
[2019-07-08] MEDS ORDERED: Tropicamide 1% OPTH.SOL* BTL ONE (09:10)
[2019-07-08] MEDS ORDERED: Ketorolac 0.5% OPHTH (NF) 0.5 % 5 ML BTL ONE (09:10)
[2019-07-08] MEDS ORDERED: Phenylephrine OPHTH SOL 2.5%* 2 ML ONE (09:10)
[2019-07-08] MEDS ORDERED: Lidocaine 1% MPF ** 5 ML VIAL ONE (09:10)
[2019-07-08] MEDS ORDERED: Cyclopentolate 1% OPTH.SOL* 2 ML BTL ONE (09:10)
[2019-07-08] MEDS ORDERED: Phenylephr/Ketorolac 1%/0.3% OPH DROP BTL ONE ×2 (09:10→14:29)
[2019-07-08] MEDS ORDERED: Lidocaine 2% PF * 5 ML VIAL ONE (10:09)
[2019-07-08] MEDS ORDERED: Propofol* 10 MG/ML 20 ML BTL ONE (10:09)
[2019-07-08 10:44] VITALS: BP 110/73
--- NOTE | 2019-07-08 12:16 | OP ---
DATE OF OPERATION: 07/08/19 - [facility] DATE OF : 56 SURGEON: Freddie Davis MD A R COLLECTIONS REP: None. ANESTHESIA: Retrobulbar block with MAC. PRE-OP DIAGNOSIS: Mature white cataract, band keratopathy, right eye. POST-OP DIAGNOSIS: Mature white cataract, band keratopathy, right eye. OPERATIVE PROCEDURE: Phacoemulsification and cataract extraction with posterior chamber intraocular lens implant, right eye. COMPLICATIONS: None. BLOOD LOSS: None. DESCRIPTION OF PROCEDURE: The patient was brought to the operating room and given intravenous sedation. A retrobulbar block was performed on the right side involving approximately 3 mL of 1% lidocaine injected with an Vergara retrobulbar needle on the inferolateral aspect of the right eye into the muscle cone. After gentle massage, the patient was then prepped and draped in the usual sterile fashion for ophthalmic surgery. Attention was directed to the right eye where a speculum was placed. The pupil was noted to be fairly well dilated with rubeosis iridis noted. There was mild band keratopathy obstructing the view to some degree and a completely white cataract. A paracentesis was created at the 11 o'clock position and 0.1 cc of 1% preservative free lidocaine was injected into the eye followed by air. This was followed by VisionBlue dye and then DisCoVisc. A 2.75 mm keratome was used to create a triplanar clear corneal incision at the 9 o'clock position. A cystotome was used to puncture the central anterior aspect of the capsule. Gentle irrigation of "lens milk" was performed. A Utrata forceps was then used to create a small round capsulorrhexis. The lens was noted to be quite mobile within the capsule, so hydrodissection was not performed. Phacoemulsification was performed in a [id number] technique to create four fragments. This involved increasing the torsional phaco power. The four fragments were cracked and removed separately. There was virtually no residual cortical material remaining. The small wisps that remained were removed with gentle irrigation and aspiration. It was noted that superiorly the capsulorrhexis anteriorly had began to tear, but this tear did not extend to even the equator. ProVisc was used to inflate the capsular bag. An [id number] 25.5 diopter lens was inserted into the capsular bag atraumatically and oriented 90 degrees to the anterior capsular tear. Irrigation and aspiration were performed to remove viscoelastic from the eye. BSS on a cannula was used to hydrate the corneal stroma and seal the wound. Omidria had been added to the original irrigating solution. At this point, Miostat was injected into the anterior chamber to prove the pupil would return to a small round position and that there was no vitreous anterior to the lens. Indeed, the pupil returned to a small round position. At the end of the case, the eye pressure appeared normal. The pupil was round, the lens was centered. The wound was water tight. The speculum was removed and topical Maxitrol ointment was placed in the surface of the eye. The eye was closed, patched and shielded, and the patient was sent to the recovery room in stable condition with post-operative instructions and followup appointment given. [id number] #: [id number] DRAGAN
[2019-07-08] MEDS ORDERED: BSS OPTH.SOL* BTL ONE (14:29)
[2019-07-08] MEDS ORDERED: Carbachol 0.01% OPH.SOL* 1.5 ML OPHTH.SOLN ONE (14:29)
== END 2019-07-08 10:36 | disposition home or self-care (01) ==
LOC: OREAST 08:08
PROVIDERS: ATTEND Ophthalmology
DX: H25.13 Age-related nuclear cataract, bilateral (principal); H25.21 Age-related cataract, morgagnian type, right eye; H18.421 Band keratopathy, right eye; I42.8 Other cardiomyopathies; R03.0 Elevated blood-pressure reading, without diagnosis of hypertension; F32.9 Major depressive disorder, single episode, unspecified; E11.9 Type 2 diabetes mellitus without complications
CPT/HCPCS: A9270-GY; C9447; J2250; J2704; J3010; V2632

== ENCOUNTER 2020-01-05 15:27 | Emergency (ER) | payer MEDICARE, MEDICAID ==
--- OUTSIDE RECORDS SUMMARY | 2020-01-05 15:39 | XMS REPORT | Continuity of Care Document ---
:1960 External Reference #:[id number] Author Name Naun Shine, OD Address [address] [place] [address] Care Team Providers Name Role Phone Aniket Yan MD - Transformer Builder Care Team Information Audio Visual Engineer [phone] [facility] Care Team Information Audio Visual Engineer Problems Active Problems Provider Date Hypermature cataract Freddie Davis M.D. Onset: 04/26/2017 Social History Type Date Description Comments Sex Unknown ETOH Use Never used alcohol Tobacco Use Start: Unknown End: Unknown Patient is a former smoker Smoking Status Reviewed: 12/10/19 Patient is a former smoker Allergies, Adverse Reactions, Alerts Description No Known Drug Allergies Medications Active Medications SIG Qnty Indications Ordering Provider Date Lumigan one drop every 5ml Naun Shine, OD 12/03/2019 0.01% Solution night right eye Vyzulta one drop every 2.500ml Naun Shine, OD 12/02/2019 0.024% Solution night at bedtime right eye Soothe XP Xtra 1 drop qid OU 1Bottle Naun Shine, OD 11/28/2019 Protection 1%-4.5% Solution Combigan 1 drop right eye 15ml Z48.89 Freddie Davis, 07/11/2019 0.2-0.5% twice a day M.D. Solution Lisinopril Hernan WHITE, 5mg Tablets Dada Fluoxetine HCL Hernan WHITE, 20mg Dada Capsules Metoprolol Succinate Hernan WHITE, ER Dada 50mg Tablets ER 24HR History Medications Vyzulta one drop every 2.500ml Naun Shine, 11/28/2019 - 0.024% Solution night at OD 12/02/2019 bedtime right eye Acetazolamide ER take one cap 30capconcepcion Davis, 07/30/2019 - 500mg twice daily M.D. 08/26/2019 Caps ER 12HR Celestina 128 1/4 inch ribbon 3.500gm Naun Shine, 07/17/2019 - 5% Ointment onto ocular OD 11/28/2019 surface every night at bedtime right eye Acetazolamide ER 1 by mouth 30caps Freddie Davis, 07/17/2019 - 500mg twice a day M.D. 07/30/2019 Caps ER 12HR Acetazolamide ER 1 by mouth 14caps Z48.89 Freddie Davis, 07/11/2019 - 500mg twice a day M.D. 07/17/2019 Caps ER 12HR Immunizations Description No Information Available Vital Signs Date Vital Result Comment 11/28/2019 11:47am Intraocular Pressure Right Eye 19 mmHg Intraocular Pressure Left Eye 30 mmHg 08/26/2019 1:47pm Intraocular Pressure Right Eye 24 mmHg Intraocular Pressure Left Eye 26 mmHg Results Description No Information Available Procedures Date Code Description Status 07/08/2019 28503 Extracapsular Cataract Removal W/Insertion Of Intraocular Completed Lens pr Medical Devices Description No Information Available Encounters Type Date Location Provider Dx Diagnosis Office Visit 11/28/2019 Main Office Naun Zarateon, OD H16.143 Punctate keratitis, 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 H40.1113 Primary open-angle glaucoma, right eye, severe stage 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, morgagnian type, left eye Office Visit 08/26/2019 11:30a Main Office Naun Shine, Z96.1 Presence of OD intraocular lens H40.1113 Primary open-angle glaucoma, right eye, severe stage 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, morgagnian type, left eye H16.141 Punctate keratitis, right eye Assessments Date Code Description Provider 12/10/2019 H40.1113 Primary open-angle glaucoma, right eye, Naun Shine, OD severe stage 12/10/2019 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, morgagnian type, left Naun Shine , OD eye 12/10/2019 H16.143 Punctate keratitis, bilateral Naun Shine, OD 11/28/2019 H16.143 Punctate keratitis, bilateral Naun Shine, OD 11/28/2019 H40.1113 Primary open-angle glaucoma, right eye, Naun Shine, OD severe stage 11/28/2019 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, morgagnian type, left Naun Shine , OD eye 08/26/2019 Z96.1 Presence of intraocular lens Naun Shien, OD 08/26/2019 H40.1113 Primary open-angle glaucoma, right eye, Naun Shine, OD severe stage 08/26/2019 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, morgagnian type, left Naun Shine , OD eye 08/26/2019 H16.141 Punctate keratitis, right eye Naun Shine, OD 08/12/2019 H40.1113 Primary open-angle glaucoma, right eye, Naun Shine, OD severe stage 08/12/2019 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, morgagnian type, left Naun Shine , OD eye 08/12/2019 H16.141 Punctate keratitis, right eye Naun Shine, OD 08/05/2019 H40.1113 Primary open-angle glaucoma, right eye, Naun Shine, OD severe stage 07/30/2019 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, morgagnian type, left Naun Shine , OD eye 07/30/2019 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, right eye Naun Shine , OD 07/30/2019 Z96.1 Presence of intraocular lens Naun Shine, OD 07/30/2019 H40.1113 Primary open-angle glaucoma, right eye, Naun Shine, OD severe stage 07/25/2019 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, right eye Naun Shine , OD 07/25/2019 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, morgagnian type, left Naun Shine , OD eye 07/25/2019 Z96.1 Presence of intraocular lens Naun Shine, OD 07/22/2019 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 aftercare 07/09/2019 Z48.89 Encounter for other specified surgical Freddie Davis M.D. aftercare 07/08/2019 H25.11 Age-related nuclear cataract, right eye Freddie Davis M.D. Plan of Treatment 12/10/2019 - Naun Shine, ODH40.1113 Primary open-angle glaucoma, right eye, severe kdrxsW59.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, morgagnian type, left eyeH16.143 Punctate keratitis, bilateralFollow up:2 weeks f/u, sooner PRN Functional Status Description No Information Available Mental Status Description No Information Available Referrals Description No Information Available
--- OUTSIDE RECORDS SUMMARY | 2020-01-05 15:39 | XMS REPORT | Continuity of Care Document ---
:1960 External Reference #:[id number] Author Name Naun Shine, OD Address [address] [place] [address] Care Team Providers Name Role Phone Aniket Yan MD - Collator Operator Care Team Information Major Gifts Manager [phone] [facility] Care Team Information Major Gifts Manager Problems Active Problems Provider Date Hypermature cataract Freddie Davis M.D. Onset: 04/26/2017 Social History Type Date Description Comments Sex Unknown ETOH Use Never used alcohol Tobacco Use Start: Unknown End: Unknown Patient is a former smoker Smoking Status Reviewed: 11/28/19 Patient is a former smoker Allergies, Adverse Reactions, Alerts Description No Known Drug Allergies Medications Active Medications SIG Qnty Indications Ordering Provider Date Combigan 1 drop right eye 15ml Z48.89 Freddie Davis, 07/11/2019 0.2-0.5% twice a day M.D. Solution Lisinopril Dada Becerra MD 5mg Tablets Fluoxetine HCL Dada Becerra MD 20mg Capsules Metoprolol Succinate Dada Becerra MD ER 50mg Tablets ER 24HR History Medications Acetazolamide ER take one cap 30caps Freddie Davis, 07/30/2019 - 500mg twice daily M.D. 08/26/2019 Caps ER 12HR Celestina 128 1/4 inch ribbon 3.500gm Naun Shine, 07/17/2019 - 5% Ointment onto ocular OD 11/28/2019 surface every night at bedtime right eye Acetazolamide ER 1 by mouth twice 30caps Freddie Davis, 07/17/2019 - 500mg a day M.D. 07/30/2019 Caps ER 12HR Acetazolamide ER 1 by mouth twice 14caps Z48.89 Freddie Davis 2018 - 500mg a day M.D. 07/17/2019 Caps ER 12HR Moxifloxacin HCL 1 drop drops 9ml Freddie Davis, 06/09/2019 - 0.5% right eye four M.D. 07/25/2019 Solution times a day Prednisolone Acetate 1 drop four 20ml Freddie Davis, 06/09/2019 - 1% times a day M.D. 08/05/2019 Suspension right eye x 1 week, then taper as directed Ketorolac 1 right eye 10ml Freddie Davis, 06/09/2019 - Tromethamine twice a day M.D. 08/05/2019 0.5% Solution Immunizations Description No Information Available Vital Signs Date Vital Result Comment 08/26/2019 1:47pm Intraocular Pressure Right Eye 24 mmHg Intraocular Pressure Left Eye 26 mmHg 08/12/2019 12:47pm Intraocular Pressure Right Eye 23 mmHg Results Description No Information Available Procedures Date Code Description Status 07/08/2019 60304 Extracapsular Cataract Removal W/Insertion Of Intraocular Completed Lens pr Medical Devices Description No Information Available Encounters Type Date Location Provider Dx Diagnosis Office Visit 08/26/2019 Main Office Naun Shine, OD Z96.1 Presence of 11:30a intraocular lens H40.1113 Primary open-angle glaucoma, right eye, severe stage 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 cataract, morgagnian type, bilateral Assessments Date Code Description Provider 08/26/2019 Z96.1 Presence of intraocular lens Naun Shine, OD 08/26/2019 H40.1113 Primary open-angle glaucoma, right [...] 07/17/2019 Z96.1 Presence of intraocular lens Naun Shine, OD 07/17/2019 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, morgagnian type, [...] nuclear cataract, right eye Freddie Davis M.D. 06/06/2019 H25.23 Age-related cataract, morgagnian type, Freddie Davis M.D. bilateral Plan of Treatment No Information Available Functional Status Description No Information Available Mental Status Description No Information Available Referrals Description No Information Available
--- OUTSIDE RECORDS SUMMARY | 2020-01-05 15:39 | XMS REPORT | Summary of Care ---
:1960 Author Organization [facility] Address [address] [place] [address] Care Team Providers Name Role Phone Dada Becerra MD Primary Care Provider Reason for Visit Auth/Cert Status Reason Specialty Diagnoses / Procedures Referred By Contact Referred To Contact Diagnoses glaucoma right eye H40.113 Kathia [address] MD [address] [place] [phone] Email: [email or web address] Encounter Details Date Type Department Care Team Description 01/01/2020 Hospital Encounter [facility] Kathia [address] [facility] [place] [address] [place] [phone] Allergies No Known Allergiesdocumented as of this encounter (statuses as of 01/01/2020) Medications Medication Sig Dispensed Refills Start Date End Date Status Dorzolamide HCl 2 % 2 drops Three 0 Active Ophthalmic Solution times daily (TRUSOPT) Brimonidine Place 1 drop 0 Active Tartrate-Timolol 0.2-0.5 into both eyes % Ophthalmic Solution every 12 (COMBIGAN) (twelve) hours Latanoprostene Bunod 1 drop every 0 Active 0.024 % Ophthalmic evening Solution (VYZULTA) Lisinopril 5 MG Oral Take 5 mg by 0 Active Tablet mouth every (PRINIVIL,ZESTRIL) morning Metoprolol Tartrate 50 Take 50 mg by 0 Active MG Oral Tablet mouth Two Times (LOPRESSOR) Daily FLUoxetine HCl 20 MG Take 20 mg by 0 Active Oral Capsule (PROZAC) mouth every morning prednisoLONE Acetate 1 % Place 1 drop 5 mL 0 01/01/2020 Active Ophthalmic Suspension into the right (PRED FORTE) eye Four times daily documented as of this encounter (statuses as of 01/01/2020) Active Problems No known active problemsdocumented as of this encounter (statuses as of 2019) Social History Tobacco Use Types Packs/Day Years Used Date Former Smoker 0.25 10 Quit: 1998 Smokeless Tobacco: Never Used Alcohol Use Drinks/Week oz/Week Comments Never Alcohol Habits Answer Date Recorded How often do you have a drink containing alcohol? Never 01/01/2020 How many drinks containing alcohol do you have on a typical Not asked day when you are drinking? How often do you have six or more drinks on one occasion? Not asked Sex Assigned at Date Recorded Not on file Job Start Date Occupation Industry Not on file Not on file Not on file Travel History Travel Start Travel End No recent travel history available. documented as of this encounter Last Filed Vital Signs Vital Sign [place] Time Taken Comments Blood Pressure 118/68 01/01/2020 11:50 AM EST Pulse 68 01/01/2020 11:50 AM EST Temperature 37 01/01/2020 11:05 AM EST C (98.6 F) Respiratory Rate 20 01/01/2020 11:50 AM EST Oxygen Saturation 95% 01/01/2020 11:50 AM EST Inhaled Oxygen Concentration - - Weight 122.9 kg (271 lb) 01/01/2020 8:44 AM EST Height 167.6 cm (5' 6") 01/01/2020 8:44 AM EST Body Mass Index 43.74 01/01/2020 8:44 AM EST documented in this encounter Discharge Instructions Patient InstructionsAnahi Fishman RN - 12/29/2019 3:33 PM EST PRE-ANESTHESIA INSTRUCTIONS Tentative Date: 01/01/2020 Tentative Arrival Time: 0845 Take medications morning of surgery with a few sips of water/clear liquid [employer] Medications Medication Sig Pre-Anesthesia Instructions for Medications Brimonidine Tartrate-Timolol 0.2-0.5 % Ophthalmic Solution (COMBIGAN) Place 1 drop into both eyes every 12 (twelve) hours Continue as prescribed Dorzolamide HCl 2 % Ophthalmic Solution (TRUSOPT) 2 drops Three times daily Continue as prescribed FLUoxetine HCl 20 MG Oral Capsule (PROZAC) Take 20 mg by mouth every morning Continue as prescribed - TAKE MORNING OF SURGERY Latanoprostene Bunod 0.024 % Ophthalmic Solution (VYZULTA) 1 drop every evening Continue as prescribed Lisinopril 5 MG Oral Tablet (PRINIVIL,ZESTRIL) Take 5 mg by mouth every morning NOT TO BE TAKEN DAY OF SURGERY Metoprolol Tartrate 50 MG Oral Tablet (LOPRESSOR) Take 50 mg by mouth Two Times Daily Continue as prescribed - TAKE MORNING OF SURGERY ADULT AND CHILDREN 12 years old and older: These instructions apply to food and liquids by mouth andfeeding tube. Stop solid food 8 hours before your scheduled arrival at hospital (This includes gum and candies) Stop all clear liquids 2 hours before your scheduled arrival at hospital. Examples of Approved Clear Liquids for Adults: Water or ice, apple juice, coretta madina, non-red and non-purple Gatorade or Powerade. NOTHING ELSE, NO SUBSTITUTIONS! Examples of solids include: pureed solids, milk, formula, gum, candy, lozenges, pulp juices, nectars, or any liquid you cannot see through. PATIENTS WITH DIABETES PLEASE NOTE: Please check your sugar level the morning of your procedure. If you are having a low blood sugar attack (sweating, fatigue, light-headedness ) the morning of yoursurgery, please check your sugar level. You may take glucose tablets and/or clear juices such as apple, grape, or cranberry. Do not take juices you cannot see through such as orange or tomato juice.Do not eat solid food. If you are taking Motrin, Advil, Ibuprofen, or other anti-inflammatories, call your surgeon for specific instructions regarding stopping them prior to surgery. You may take Tylenol (acetaminophen) for pain. No alcohol, vitamins and supplements, illegal drugs or smoking 24 hours before surgery. Call your surgeon if you are sick, have a cold or fever. Make arrangements to have a responsible adult drive you home after surgery. Wear comfortable clothes, no valuables, remove all jewelry and piercing, no makeup or nail divehi. Do not use oil, lotion or powder on your skin before coming for your procedure. You will meet with your Anesthesiologist the day of your surgery. The Night before Your Procedure: You should receive a phone call the business day before (Sunday for Sunday procedures) between 3 and6 PM to confirm your arrival time the next day, as any time given to you before this was only tentative. To finalize your arrival time for your procedure, and if you have not heard from : [facility] ([address] [place] [address]) by 3 PM, you should call [phone] The Day of Your Procedure: [address] [place], [place] [address] Parking Instructions: Please park in the [address] [place] [address] Specialty Services parking lot. Please bring haq for parking. Credit cards are not accepted and there is no PHILLIP in the building. Once you enter the building, please take the first hallway to the left. [facility] sand[facility] right side ([address]). Discharge Instr - Other Kathia Street MD - 01/01/2020 11:16 AM ESTKeep your eye shield on until tomorrow morning. Then restart all eye drops in the Right eye. Add prednisolone four times daily in Right eye. Continue all glaucoma drops in Left eye. Post-op instructions: Do not rub your eyes. Call us if: - your eye pain gets worse, not better - you notice a decrease in vision - you see flashing lights, tons of floaters, or a shade over your vision - your eye gets red documented in this encounter Plan of Treatment Health Maintenance Due Date Last Done Comments Hepatitis C Screening (B. 1960 [id number]) MMR Vaccines (1 of 1 - Standard 1959 series) Varicella Vaccines (1 of 2 - 1959 2-dose childhood series) DTaP,Tdap,and Td Vaccines (1 - 1965 Tdap) HIV Screening 1971 Cervical Cancer Screening 5 years 1979 Breast Cancer Screening 2 years 2008 Colon Cancer Screening 10 yrs 2008 Zoster Vaccines (1 of 2) 2008 Influenza Vaccine 08/26/2019 Pneumococcal Vaccine: 65+ Years (1 2023 of 2 - PCV13) HIB Vaccines Aged Out No longer eligible based on patient's age to complete this topic Hepatitis A Vaccines Aged Out No longer eligible based on patient's age to complete this topic Hepatitis B Vaccines Aged Out No longer eligible based on patient's age to complete this topic IPV Vaccines Aged Out No longer eligible based on patient's age to complete this topic Pneumococcal Vaccine: Pediatrics Aged Out No longer eligible based on (0 to 5 Years) and At-Risk patient's age to complete this Patients (6 to 64 Years) topic documented as of this encounter Results Not on filedocumented in this encounter Administered Medications Medication Order MAR Action Action Date Dose Rate Site lactated ringers infusion at 100 mL/hr, Intravenous, Continuous, Starting Jamia 01/01/20 at 1145, For 30 days , Keep Vein Open. Use Wide Tubing., Pre-op documented in this encounter
[2020-01-05] MEDS ORDERED: Ketorolac INJ* 30 MG/ML 1 ML VIAL IM ONE (15:45)
[2020-01-05] MEDS ORDERED: Diazepam TAB(*) 5 MG PO ONE (15:45)
--- NOTE | 2020-01-05 15:54 | ED ---
Back Pain - HPI Summary HPI Summary: Patient complains of right-sided lower back pain 3 days. Pain started while patient was getting up from toilet, and has been progressive since. Ambulating with pain. Denies urinary retention, radiation of pain down legs, bowel incontinence. Denies any other pain, injury or symptoms. Medical history as HTN, A. fib, depression. - History of Current Complaint Chief Complaint: EDBackInjuryPain Stated Complaint: BACK PAIN PER EMS Time Seen by Provider: 01/05/20 15:38 Hx Obtained From: Patient Hx Last Menstrual Period: hysterectomy age 15 Onset/Duration: Sudden Onset, Lasting Days Onset/Duration: Started Days Ago Timing: Constant Severity Initially: Severe Severity Currently: Severe Pain Intensity: 9 Pain Scale Used: 0-10 Numeric Character: Aching, Throbbing Aggravating Symptom(s): Movement, Bending Alleviating Symptom(s): Rest, Position Associated Signs And Symptoms: Positive: Negative - Allergies/Home Medications Allergies/Adverse Reactions: Allergies Allergy/AdvReac Type Severity Reaction Status Date / Time No Known Allergies Allergy Verified 07/08/19 08:35 Home Medications: Home Medications Bimatoprost 0.01% OPHTH (NF) [Lumigan 0.01% OPHTH (NF)] 1 drop RIGHT EYE BEDTIME 01/05/20 [History Confirmed 01/05/20] Brimonid/Timolol 0.2/0.5%(NF) [Combigan 0.2/0.5% (NF)] 1 drop RIGHT EYE BID 09/14 [History Confirmed 01/05/20] prednisoLONE 1% OPHTH.SUSP* [Pred Forte 1%*] 1 drop RIGHT EYE QID 01/05/20 [ History Confirmed 01/05/20] PMH/Surg Hx/FS Hx/Imm Hx Endocrine/Hematology History: Denies: Hx Anticoagulant Therapy, Hx Blood Disorders, Hx Blood Transfusions, Hx Bone Marrow Disease, Hx Diabetes, Hx Systemic Lupus Erythematosus, Hx Sickle Cell Disease, Hx Thyroid Disease, Hx Anemia, Hx Unexplained Bleeding, Other Endocrine/Hematological Disorders Cardiovascular History: Reports: Hx Hypertension - ON DAILY MEDS, Hx Valvular Heart Disease - bottom of heart does not function well, see dr salas Denies: Hx Aneurysm, Hx Angina, Hx Angioplasty, Hx Auto Implanted Cardiovert Defib, Hx Cardiac Arrest, Hx Cardiomegaly, Hx Congenital Heart Disease, Hx Congestive Heart Failure, Hx Coronary Artery Disease, Hx Deep Vein Thrombosis, Hx Embolism, Hx Hypercholesterolemia, Hx Hypotension, Hx Myocardial Infarction, Hx Pacemaker/ICD, Hx Peripheral Vascular Disease, Hx Rheumatic Fever, Hx Syncope , Other Cardiovascular Problems/Disorders Respiratory History: Denies: Hx Asthma, Hx Chronic Bronchitis, Hx Chronic Obstructive Pulmonary Disease (COPD), Hx Cystic Fibrosis, Hx Lung Cancer, Hx Pleural Effusion, Hx Pneumonia, Hx Pulmonary Edema, Hx Pulmonary Embolism, Hx Seasonal Allergies, Hx Sleep Apnea, Other Respiratory Problems/Disorders GI History: Reports: Hx Gastroesophageal Reflux Disease Denies: Hx Cirrhosis, Hx Crohn's Disease, Hx Diverticulosis, Hx Gall Bladder Disease, Hx Gastrointestinal Bleed, Hx Hiatal Hernia, Hx Irritable Bowel, Hx Jaundice, Hx Obstructive Bowel, Hx Ileostomy, Hx Pyloric Stenosis, Hx Ulcer, Other GI Disorders History: Reports: Other Problems/Disorders - HX OF UTI'S, LAST 3-4 YRS AGO Denies: Hx Renal Disease Musculoskeletal History: Denies: Hx Arthritis, Hx Back Problems, Hx Bursitis, Hx Congenital Bone Abnormalities, Hx Fibromyalgia, Hx Gout, Hx Orthopedic Injury, Hx Osteoporosis, Hx Scoliosis, Hx Tendonitis, Other Musculoskeletal History Sensory History: Reports: Hx Cataracts - teodoro, Hx Contacts or Glasses - glasses Denies: Hx Eye Injury, Hx Eye Prosthesis, Hx Glaucoma, Hx Legally Blind, Hx Macular Degeneration, Hx Vision Problem, Hx Deafness, Hx Hearing Aid, Hx Hearing Problem, Other Sensory Impairments Opthamlomology History: Reports: Hx Cataracts - teodoro, Hx Contacts or Glasses - glasses Denies: Hx Eye Injury, Hx Eye Prosthesis, Hx Glaucoma, Hx Legally Blind, Hx Macular Degeneration, Hx Vision Problem, Other Sensory Impairments Neurological History: Reports: Hx Developmental Delay Denies: Hx Dementia, Hx Headaches, Hx Migraine, Hx Nerve Disease, Hx Seizures , Hx Spinal Cord Injury, Hx Transient Ischemic Attacks (TIA), Other Neuro Impairments/Disorders Psychiatric History: Reports: Hx Anxiety - on med, Hx Community Mental Health Tx Denies: Hx Attention Deficit Hyperactivity Disorder, Hx Eating Disorder, Hx Depression, Hx Panic Disorder, Hx Post Traumatic Stress Disorder, Hx Inpatient Treatment, Hx Schizophrenia, Hx Bipolar Disorder, Hx Suicide Attempt, Hx of Violent Episodes Against Others, Hx Substance Abuse, Other Psychiatric Issues/ Disorders - Surgical History Surgery Procedure, Year, and Place: 1970s HYSTERECTOMY [facility]. 12/23/13 RIGHT BREAST [facility] Hx Anesthesia Reactions: No - Immunization History Date of Tetanus Vaccine: 7-10 years ago Immunizations Up to Date: Yes Infectious Disease History: No Infectious Disease History: Denies: Hx Clostridium Difficile, Hx Hepatitis, Hx Human Immunodeficiency Virus (HIV), Hx of Known/Suspected MRSA, Hx Shingles, Hx Tuberculosis, Hx Known/ Suspected VRE, Hx Known/Suspected VRSA, History Other Infectious Disease, Traveled Outside the [place] in Last 30 Days - Family History Known Family History: Positive: Hypertension, Other - Breast CA, anesthesia rxn Negative: Diabetes, Respiratory Disease, Seizure Disorder - Social History Alcohol Use: None Hx Substance Use: No Substance Use Type: Reports: None Hx Tobacco Use: Yes Smoking Status (MU): Former Smoker Type: Cigarettes Amount Used/How Often: 15 years Length of Time of Smoking/Using Tobacco: 4-5 YRS Have You Smoked in the Last Year: No Review of Systems Constitutional: Negative Eyes: Negative ENT: Negative Cardiovascular: Negative Respiratory: Negative Gastrointestinal: Negative Genitourinary: Negative Musculoskeletal: Other Skin: Negative Neurological/Mental Status: Negative Psychological: Normal All Other Systems Reviewed And Are Negative: Yes Physical Exam - Summary Physical Exam Summary: Tenderness along the paraspinal muscles of the lumbar spine. No CVA tenderness. PMS intact distally bilateral lower extremities. No erythema, ecchymosis, swelling, mass noted to spine. No bony point tenderness. Triage Information Reviewed: Yes Vital Signs On Initial Exam: Initial Vitals Temp Pulse Resp BP Pulse Ox 98.3 F 69 20 149/95 91 01/05/20 15:36 01/05/20 15:36 01/05/20 15:36 01/05/20 15:36 01/05/20 15:36 Vital Signs Reviewed: Yes Appearance: Positive: Well-Appearing Skin: Positive: Warm Head/Face: Positive: Normal Head/Face Inspection Eyes: Positive: Normal Neck: Positive: Supple Respiratory/Lung Sounds: Positive: Clear to Auscultation Cardiovascular: Positive: Normal Abdomen Description: Positive: Nontender Musculoskeletal: Positive: Normal Neurological: Positive: Normal Psychiatric: Positive: Normal AVPU Assessment: Alert - Ally Coma Scale Best Eye Response: 4 - Spontaneous Best Motor Response: 6 - Obeys Commands Best Verbal Response: 5 - Oriented Coma Scale Total: 15 Procedures - Sedation Patient Received Moderate/Deep Sedation with Procedure: No Diagnostics - Vital Signs Vital Signs Temp Pulse Resp BP Pulse Ox 01/05/20 15:36 98.3 F 69 20 149/95 91 - Laboratory Lab Statement: Any lab studies that have been ordered have been reviewed, and results considered in the medical decision making process. Back Pain Course/Dx - Course Course Of Treatment: Patient complains of right-sided lower back pain 3 days. Pain started while patient was getting up from toilet, and has been progressive since. Ambulating with pain. Denies urinary retention, radiation of pain down legs, bowel incontinence. Denies any other pain, injury or symptoms. Medical history as HTN, A. fib, depression. Vital Signs within normal limits. Symptoms improved with Valium and Toradol. - Diagnoses Provider Diagnoses: Back muscle spasm Discharge ED - Sign-Out/Discharge Documenting (check all that apply): Patient Departure - Discharge Plan Condition: Stable Disposition: HOME Prescriptions: Cyclobenzaprine TAB* [Flexeril 10 MG TAB*] 10 mg PO TID PRN 4 Days #12 tab PRN Reason: Spasms Patient Education Materials: Muscle Spasm (ED) Referrals: Dada Becerra MD [Primary Care Provider] - Additional Instructions: Take flexeril as directed for muscle spasm. Alternate ibuprofen 600 mg with Tylenol 650 mg every 3 hours for 2 days. Follow-up with primary care. Return to the ED for any new or worsening symptoms. - Billing Disposition and Condition Condition: STABLE Disposition: Home
[2020-01-05 17:18] VITALS: BP 114/88
== END 2020-01-05 17:18 | disposition home or self-care (01) ==
LOC: ED 15:27
DX: M62.830 Muscle spasm of back (principal); M54.5 Low back pain; I10 Essential (primary) hypertension; F41.9 Anxiety disorder, unspecified; Z79.899 Other long term (current) drug therapy; Z87.891 Personal history of nicotine dependence
CPT/HCPCS: 96372; 99282; A9270-GY; J1885

== ENCOUNTER 2020-10-06 05:50 | Inpatient (IN) ==
[2020-10-06] MEDS ORDERED: Lactated Ringers 1000 ml BAG 1,000 ML IV SCH (06:00)
[2020-10-06] MEDS ORDERED: Buffered Lidocaine 1% SYRIN 1 ml INTRADERM ONE ×2 (06:00→06:25)
[2020-10-06] MEDS ORDERED: Lidocaine 2.5%/Prilocain 2.5% 5 GM TUBE ONE (06:25)
[2020-10-06] MEDS ORDERED: ceFAZolin 1 GM ADVAN 1 GM ADDV.VIAL IVPB ONE (08:33)
[2020-10-06] MEDS ORDERED: ceFAZolin 2 GM PREMIX 2 GM/50 ML BAG ONE (08:33)
[2020-10-06] MEDS ORDERED: Heparin 5000 UNITS/ML 1 mL VIAL ONE (08:33)
[2020-10-06] MEDS ORDERED: Lidocaine 2% PF 5 ML VIAL ONE (08:52)
[2020-10-06] MEDS ORDERED: Propofol 10 MG/ML 20 ML BTL ONE ×7 (08:52→16:15)
[2020-10-06] MEDS ORDERED: Midazolam 2 mg/2 ml VIAL 1 mg/ml 2 ml VIAL (2 mg) ONE (08:52)
[2020-10-06] MEDS ORDERED: fentaNYL 250 mcg/5 ml 50 MCG/ML 5 ml VIAL (250 MCG) ONE (08:52)
[2020-10-06] MEDS ORDERED: Rocuronium 50 mg VIAL 10 mg/ml 5 ml VIAL (50 mg) ONE (08:52)
[2020-10-06] MEDS ORDERED: Bupivacaine 0.5% SDV PF 30ML VIAL ONE (08:57)
[2020-10-06] MEDS ORDERED: ISOSULFAN BLUE 1% 5 ML VIAL 10 MG/ML SUBCUT ONE (09:18)
[2020-10-06] MEDS ORDERED: DiMENhydriNATE IV 50 mg/ml 1 ml VIAL ONE (10:01)
[2020-10-06] MEDS ORDERED: Ondansetron 4 mg VIAL 2 MG/ML 2 ml VIAL ONE (10:20)
[2020-10-06] MEDS ORDERED: Dexamethasone IV 4 MG/ML VIAL 1 ml VIAL ONE (10:20)
[2020-10-06] MEDS ORDERED: Naloxone 0.4 mg VIAL 0.4 mg/ml 1 ml VIAL IV PRN (11:17)
[2020-10-06] MEDS ORDERED: fentaNYL 100 mcg/2 ml 50 MCG/ML VIAL IV PRN (11:17)
[2020-10-06] MEDS ORDERED: HYDROmorphone 1 MG/1 ML SYRINGE ONE (11:19)
[2020-10-06] MEDS ORDERED: Acetaminophen IV 1 GM/100ML 100 ML ONE (12:34)
[2020-10-06] MEDS ORDERED: ceFAZolin 2 GM PREMIX 0 GM/0 ML BAG ONE (14:09)
[2020-10-06] MEDS ORDERED: ceFAZolin VIAL VIAL ONE (14:11)
[2020-10-06] MEDS ORDERED: HYDROmorphone 1 MG/1 ML SYRINGE IV SLOW PU PRN (18:22)
[2020-10-06] MEDS ORDERED: Ondansetron 4 mg VIAL 2 MG/ML 2 ml VIAL IV PRN (18:22)
[2020-10-06] MEDS: Lactated Ringers 1000 ml BAG 1,000 ML IV SCH (21:05)
[2020-10-06] MEDS: ceFAZolin 2 GM PREMIX 2 GM/50 ML BAG IV SCH (21:12)
[2020-10-06] MEDS: oxyCODONE/Acetamin 5/325 mg TAB PO PRN (22:22)
[2020-10-07] MEDS: ceFAZolin 2 GM PREMIX 2 GM/50 ML BAG IV SCH ×3 (05:13→21:13)
[2020-10-07] MEDS: Lactated Ringers 1000 ml BAG 1,000 ML IV SCH ×2 (05:16→20:14)
[2020-10-07] MEDS ORDERED: Lactated Ringers 500 ml BAG 500 ML IV ONE (09:15)
[2020-10-07 11:26] LABS: Hematocrit 33 % (35-47); Hemoglobin 10.9 g/dL (12.0-16.0); Mean Corpuscular HGB Conc 34 g/dL (31-36); Mean Corpuscular Hemoglobin 30 pg (27-31); Mean Corpuscular Volume 89 fL (80-97); Red Blood Count 3.67 10^6 /uL (3.70-4.87); Red Cell Distribution Width 14 % (10-15); White Blood Count 17.8 10^3/uL (3.5-10.8)
[2020-10-07 11:54] LABS: ABS Basophils 0.2 10^3/ul (0-0.2); ABS Monocytes 0.8 10^3/ul (0-0.8); ABS Neutrophils 13.8 10^3/ul (1.5-7.7); Lymphocyte % 16.7 %; Mean Platelet Volume 8.2 fL (7.4-10.4); Platelet Count 142 10^3/uL (150-450)
[2020-10-07 12:40] LABS: Potassium 4.2 mmol/L (3.5-5.0)
[2020-10-07 12:49] LABS: BUN/Creatinine Ratio 28.3 (8-20); EGFR African American 122.6 (>60); EGFR Non-African American 101.3 (>60)
[2020-10-07] MEDS: oxyCODONE/Acetamin 5/325 mg TAB PO PRN (18:17)
[2020-10-08] MEDS: oxyCODONE/Acetamin 5/325 mg TAB PO PRN (03:47)
[2020-10-08] MEDS: ceFAZolin 2 GM PREMIX 2 GM/50 ML BAG IV SCH (05:14)
[2020-10-08] MEDS: Lactated Ringers 1000 ml BAG 1,000 ML IV SCH (05:17)
[2020-10-08 08:11] VITALS: BP 109/41
== END 2020-10-08 11:32 | disposition home health service (06) | DRG 582 ==
LOC: OR 05:50 → SSU 20:09
PROVIDERS: ADMIT Student in an Organized Health Care Education/Training Program; ATTEND Student in an Organized Health Care Education/Training Program